=== PATIENT | female | born 1945 | race Caucasian/White ===

== ENCOUNTER 2021-10-19 20:38 | Emergency (ER) | payer MEDICARE, MEDICAID, SELFPAY ==
--- NOTE | 2021-10-19 21:01 | ECG_ITS ---
Test Reason : abdominal pain Blood Pressure : / mmHG Vent. Rate : 073 BPM Atrial Rate : 073 BPM P-R Int : 152 ms QRS Dur : 066 ms QT Int : 390 ms P-R-T Axes : 016 -26 033 degrees QTc Int : 429 ms Normal sinus rhythm Low voltage QRS Inferior infarct , age undetermined Abnormal ECG When compared with ECG of 10-APR-2016 02:41, Criteria for Septal infarct are no longer Present Inferior infarct is now Present Referred By: Kellie Coronado Electronically Signed By:ARISE ROSE
[2021-10-19 21:32] VITALS: BP 122/60; PULSE 95; O2SAT 95; BMI 24.0
--- NOTE | 2021-10-19 21:37 | ED.GENADULT ---
HPI - General Adult General Chief complaint: Extremity Problem Stated complaint: Right side cramping Time Seen by Provider: 10/19/21 21:01 Source: patient and EMS Mode of arrival: EMS Limitations: no limitations History of Present Illness HPI narrative: 76-year-old female came in from SNF for evaluation of right-sided weakness that started today. Patient overall is limited historian stated that she has history of stroke left her with right-sided deficit for many years, started 4-5 hours ago with severe pain on the right side patient unable to describe the pain more, patient screams if you touch her anywhere on right side of her body however no obvious tenderness or pain when patient is distracted. 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 Patient has history of anxiety. Related Data Home Medications Medication Instructions Recorded Confirmed acetaminophen 650 mg 650 mg PO Q8H 10/19/21 10/19/21 tablet,extended release alendronate 70 mg tablet 1 tab PO QWEEK 10/19/21 10/19/21 aspirin 81 mg tablet,delayed 81 mg PO DAILY 10/19/21 10/19/21 release baclofen 10 mg tablet 1 tab PO TID 10/19/21 10/19/21 buspirone 10 mg tablet 1 tab PO TID 10/19/21 10/19/21 coenzyme Q10 100 mg tablet 100 mg PO DAILY 10/19/21 10/19/21 gabapentin 300 mg capsule 1 cap PO TID 10/19/21 10/19/21 gabapentin 400 mg capsule 400 mg PO BID 10/19/21 10/19/21 loratadine 10 mg tablet 10 mg PO DAILY 10/19/21 10/19/21 magnesium oxide 400 mg PO DAILY 10/19/21 10/19/21 melatonin 5 mg tablet 5 mg PO BEDTIME PRN Insomnia 10/19/21 10/19/21 metoprolol tartrate 25 mg tablet 1 tab PO BID 10/19/21 10/19/21 nitrofurantoin 1 cap PO DAILY 10/19/21 10/19/21 monohydrate/macrocrystals 100 mg capsule paroxetine HCl 20 mg tablet 1 tab PO DAILY 10/19/21 10/19/21 pravastatin 10 mg tablet 1 tab PO BEDTIME 10/19/21 10/19/21 pravastatin 20 mg tablet 1 tab PO DAILY 10/19/21 10/19/21 riboflavin (vitamin B2) 100 mg 100 mg PO BID 10/19/21 10/19/21 tablet rivaroxaban 20 mg tablet (Xarelto) 1 tab PO DAILY 10/19/21 10/19/21 Allergies Allergy/AdvReac Type Severity Reaction Status Date / Time alprazolam [Xanax] Allergy Unknown Verified 03/13/19 00:00 penicillin V Allergy Unknown Verified 03/13/19 00:00 Penicillins [PENICILLINS] Allergy Unknown HIVES AND Unverified 11/12/19 14:56 SOB aspirin AdvReac Unknown N/V, Unverified 11/12/19 14:56 BURNING diflunisal [DIFLUNISAL] AdvReac Unknown WEAKNESS Unverified 11/12/19 14:56 erythromycin base AdvReac Unknown RAPID Unverified 11/12/19 14:56 [ERYTHROMYCIN BASE] HEART RATE iodine [IODINE] AdvReac Unknown VOMITING Unverified 11/12/19 14:56 Sulfa (Sulfonamide AdvReac Unknown NAUSEA & Unverified 11/12/19 14:56 Antibiotics) VOMITING [SULFA (SULFONAMIDE ANTIBIOTICS)] Contrast Allergy PreMed Pack Allergy Unknown Uncoded 03/13/19 00:00 Darvocet A500 Allergy Unknown Uncoded 03/13/19 00:00 Seafood Allergy Unknown Uncoded 03/13/19 00:00 Sulfa Allergy Unknown Uncoded 03/13/19 00:00 From DARVON AdvReac Unknown HALLUCINATI Uncoded 11/12/19 14:56 ONS SEAFOOD AdvReac Unknown N/V Uncoded 11/12/19 14:56 Review of Systems Review of Systems: All other systems are reviewed and are negative Constitutional: Reports as per HPI and Reports no additional constitutional complaints Eyes: Reports as per HPI and Reports no additional eye complaints Reports system reviewed and no additional complaints, except as documented Cardiovascular: Reports as per HPI and Reports no additional cardiovascular complaints Respiratory: Reports as per HPI and Reports no additional respiratory complaints Gastrointestinal: Reports as per HPI and Reports no additional gastrointestinal complaints Genitourinary: Reports no additional female genitourinary complaints Musculoskeletal: Reports no additional musculoskeletal complaints Skin/Breast: Reports system reviewed and no additional complaints, except as docu Psychiatric: Reports no additional psychiatric complaints Endocrine: Reports no additional endocrine complaints Hematologic/Lymphatic: Reports no additional hematologic/lymphatic complaints Allergic/Immunologic: Reports no additional allergic/immunologic complaints Reports system reviewed and no additional complaints, except as documented and Reports Abnormal speech present [facility] Social History Social History Advance Directives: No Advance Directives Information Provided: No Physical Exam ED Vital Signs: Vital Signs - 24 hr 10/19/21 22:46 Temperature 98.7 F Pulse Rate 71 Blood Pressure 99/49 L Pulse Oximetry 96 Oxygen Delivery Method Room Air BMI result Body Mass Index 24.0 vital signs have been reviewed as appeared to be correct. Blood pressure normal. Heart rate normal. Respiration rate normal. Temperature normal. Oxygen saturation normal. Appearance: Alert. . No acute distress. Head: Normal external exam. Normocephalic. Atraumatic. No Rao signs noted. No raccoon eyes noted Eyes: PERRLA. EOMI. Conjunctiva and sclera normal. Eyelids normal. ENT: TM's Normal. Pharynx normal. Uvula midline. Moist mucous membranes. No trismus noted. No drooling noted. No muffled voice noted. Neck: Normal inspection. Neck supple. FROM. No adenopathy. Thyroid Normal. No meningeal signs. No neck mass noted. CVS: Normal heart rate and rhythm. Heart sound normal. No murmurs noted. Pulses normal throughout. Respiratory: No respiratory distress. Painless inspiration. Breath sounds normal. No wheezes/rales/rhonchi noted. Chest nontender. No accessory muscle usage noted or decreased air movement noted. Abdomen: Soft and nontender. Bowel sounds normal in all 4 quadrants. No distention noted. No organomegaly noted. No visible injury noted. Back: No CVA tenderness. Full range of motion noted. Skin: Skin warm and dry. Normal skin color. Normal skin turgor. No rashes/lesions/lacerations noted. Extremities: No lower extremity edema. Extremities exhibit normal range of motion. Extremities nontender. Neuro: Oriented X 3. Cranial nerve exam: II-XII are grossly intact Old right hemiparesis. No sensory deficit. Reflexes normal. Course Course Course Narrative: 76-year-old female came in for evaluation of right-sided body ache, patient is known to be bedridden and right hemiparesis secondary to an old CVA. , initially presented with right-sided body ache, patient initially was screaming of pain if touching any part of her body on the right side however with distracting the patient there was no right-sided tenderness appreciated. Patient has a normal vital sign while she is in the ED, unremarkable labs, with distraction touching right-sided with no pain. Overall patient now feels better with no right-sided pain, will discharge the patient back to the alf. Medical Decision Making Lab Data Lab results reviewed: Yes I reviewed the patient's lab results. Result diagrams: 10/19/21 21:34 10/19/21 21:30 Labs: Lab Results 10/19/21 10/19/21 10/19/21 Range/Units 21:30 21:30 21:31 WBC (4.8-10.8) X10*3/uL RBC (4.20-5.50) X10*6/uL Hgb (12.0-16.0) g/dl Hct (37.0-47.0) % MCV (80.0-98.0) fL MCH (27.0-33.0) pg MCHC (31.0-35.0) g/dl RDW (11.0-16.0) % Plt Count (160-400) X10*3/uL MPV (9.4-12.3) fL Immature Gran % (Auto) (0.0-0.4) % Neut % (Auto) (45-73) % Lymph % (Auto) (20-40) % [place] % (Auto) (2-11) % Eos % (Auto) (0-4) % Baso % (Auto) (0-2) % Lymph # (Auto) (1.2-4.9) X10*3/uL [place] # (Auto) (0.1-1.2) X10*3/uL Eos # (Auto) (0.0-0.4) X10*3/uL Baso # (Auto) (0.0-0.2) X10*3/uL Abs Immat Gran (auto) (0.00-0.03) X10*3/uL Absolute Neuts (auto) (2.0-8.3) x10*3/uL Absolute Nucleated RBC (0.0-0.012) X10*3/uL Nucleated RBC % (auto) (0.0-0.2) /100WBC Sodium Cancelled 143 Potassium Cancelled 4.5 Chloride Cancelled 105 Carbon Dioxide Cancelled 28 Anion Gap Cancelled 15 BUN Cancelled 15 Creatinine Cancelled 0.93 Estim Creat Clear Calc Cancelled 42.7 Estimated GFR Cancelled 59 Random Glucose Cancelled 95 Calcium Cancelled 9.1 Total Bilirubin Cancelled 0.4 Direct Bilirubin Cancelled < 0.2 AST Cancelled 49 H ALT Cancelled 36 H Alkaline Phosphatase Cancelled 106 Total Creatine Kinase 65 (26-140) U/L Troponin I High Sens (<3.5-17.0) ng/L Total Protein Cancelled 7.9 Albumin Cancelled 4.0 Lipase Cancelled 91 H COVID-19 (MARY) Negative (Negative) COVID-19 Clin Com See Note 10/19/21 10/19/21 Range/Units 21:34 21:34 WBC 8.2 (4.8-10.8) X10*3/uL RBC 4.73 (4.20-5.50) X10*6/uL Hgb 14.2 (12.0-16.0) g/dl Hct 43.2 (37.0-47.0) % MCV 91.3 (80.0-98.0) fL MCH 30.0 (27.0-33.0) pg MCHC 32.9 (31.0-35.0) g/dl RDW 13.4 (11.0-16.0) % Plt Count 253 (160-400) X10*3/uL MPV 8.9 L (9.4-12.3) fL Immature Gran % (Auto) 0.4 (0.0-0.4) % Neut % (Auto) 63.4 (45-73) % Lymph % (Auto) 24.1 (20-40) % [place] % (Auto) 9.4 (2-11) % Eos % (Auto) 1.7 (0-4) % Baso % (Auto) 1.0 (0-2) % Lymph # (Auto) 2.0 (1.2-4.9) X10*3/uL [place] # (Auto) 0.8 (0.1-1.2) X10*3/uL Eos # (Auto) 0.1 (0.0-0.4) X10*3/uL Baso # (Auto) 0.1 (0.0-0.2) X10*3/uL Abs Immat Gran (auto) 0.03 (0.00-0.03) X10*3/uL Absolute Neuts (auto) 5.2 (2.0-8.3) x10*3/uL Absolute Nucleated RBC 0.000 (0.0-0.012) X10*3/uL Nucleated RBC % (auto) 0.0 (0.0-0.2) /100WBC Sodium Potassium Chloride Carbon Dioxide Anion Gap BUN Creatinine Estim Creat Clear Calc Estimated GFR Random Glucose Calcium Total Bilirubin Direct Bilirubin AST ALT Alkaline Phosphatase Total Creatine Kinase (26-140) U/L Troponin I High Sens 3.7 (<3.5-17.0) ng/L Total Protein Albumin Lipase COVID-19 (MARY) (Negative) COVID-19 Clin Com Discharge Plan Discharge Clinical Impression: Body aches, Abdominal cramps Patient Disposition: Home, Self-Care Instructions: Muscle Cramp (ED) Prescriptions: No [facility] alendronate 70 mg tablet 1 tab PO QWEEK pravastatin 10 mg tablet 1 tab PO BEDTIME baclofen 10 mg tablet 1 tab PO TID paroxetine HCl 20 mg tablet 1 tab PO DAILY buspirone 10 mg tablet 1 tab PO TID gabapentin 300 mg capsule 1 cap PO TID pravastatin 20 mg tablet 1 tab PO DAILY metoprolol tartrate 25 mg tablet 1 tab PO BID nitrofurantoin monohyd/m-cryst 100 mg capsule 1 cap PO DAILY Xarelto 20 mg tablet 1 tab PO DAILY riboflavin (vitamin B2) 100 mg Tablet 100 mg PO BID gabapentin 400 mg capsule 400 mg PO BID aspirin [Aspir-81] 81 mg Tablet,Delayed Release (Dr/Ec) 81 mg PO DAILY acetaminophen 650 mg Tablet Extended Release 650 mg PO Q8H loratadine 10 mg Tablet 10 mg PO DAILY melatonin 5 mg Tablet 5 mg PO BEDTIME PRN (Reason: Insomnia) coenzyme Q10 100 mg Tablet 100 mg PO DAILY magnesium oxide 400 mg magnesium Tablet 400 mg PO DAILY Referrals: Jan Hoover MD [Primary Care Provider] -
[2021-10-19 21:39] LABS: MANUAL DIFF FLAG NO
[2021-10-19 21:49] LABS: Basophils Absolute Auto 0.1 X10*3/uL (0.0-0.2); Eosinophils Absolute Auto 0.1 X10*3/uL (0.0-0.4); Eosinophils Percent Auto 1.7 % (0-4); Hematocrit 43.2 % (37.0-47.0); Hemoglobin 14.2 g/dl (12.0-16.0); Imm Gran Abs Auto 0.03 X10*3/uL (0.00-0.03); Imm Gran Pct Auto 0.4 % (0.0-0.4); Lymphocytes Percent Auto 24.1 % (20-40); Mean Corpuscular HGB Conc 32.9 g/dl (31.0-35.0); Mean Corpuscular Volume 91.3 fL (80.0-98.0); Mean Platelet Volume 8.9 fL (9.4-12.3); Monocytes Absolute Auto 0.8 X10*3/uL (0.1-1.2); Monocytes Percent Auto 9.4 % (2-11); Neutrophils Absolute Auto 5.2 x10*3/uL (2.0-8.3); Neutrophils Percent Auto 63.4 % (45-73); Platelet Count 253 X10*3/uL (160-400); Red Blood Count 4.73 X10*6/uL (4.20-5.50); Red Cell Distribution Width 13.4 % (11.0-16.0); White Blood Count 8.2 X10*3/uL (4.8-10.8)
[2021-10-19 21:51] LABS: COVID-19 Test Negative (Negative); IDNOW Serial# 08D9AD1C
--- NOTE | 2021-10-19 22:00 | PHA.MEDREC ---
Pharmacy Consult ? Medication Reconciliation Pharmacy has completed the medication reconciliation. Use list provided by [facility].
[2021-10-19 22:07] LABS: Alanine Aminotransferase 36 U/L (0-31); Alkaline Phosphatase 106 U/L (39-117); Anion Gap 15 (12-20); Aspartate Amino Transferase 49 U/L (5-31); Bilirubin Direct < 0.2 mg/dL (0.0-0.5); Bilirubin Total 0.4 mg/dL (0.0-1.0); Blood Urea Nitrogen 15 mg/dL (9-16); Calcium 9.1 mg/dL (8.4-10.2); Carbon Dioxide 28 mmol/L (22-29); Chloride 105 mmol/L (96-108); Creatinine Clr Calc Pharmacy 42.7; Estimated Glomerular Filt Rate 59; Glucose Random 95 mg/dL (60-115); Lipase 91 U/L (8-78); Potassium 4.5 mmol/L (3.3-5.1); Sodium 143 mmol/L (135-145); Total Protein 7.9 g/dL (6.5-8.0)
[2021-10-19 22:15] LABS: Troponin-I High Sensitivity 3.7 ng/L (<3.5-17.0)
[2021-10-19 22:46] VITALS: BP 99/49; PULSE 71; TEMP 37.1; O2SAT 96
[2021-10-19] MEDS: Acetaminophen 325 MG TABLET 650 MG PO (23:50)
--- NOTE | 2021-10-20 00:12 | PC.NURSE ---
This US/Pct called [facility] at 0012 for a BLS transfer back to [facility],EMS Booked 0630AM. RN and color coater aware.
--- NOTE | 2021-10-20 00:33 | PC.NURSE ---
report called to SNF. spoke with pt nurse. ambulance transport back to facility @[phone]
== END 2021-10-20 07:10 | disposition home or self-care (01) ==
PROVIDERS: Emergency Provider Emergency Medicine; PCP Family Medicine
DX: M79.10 Myalgia, unspecified site (principal); R10.9 Unspecified abdominal pain; Z20.822 Contact with and (suspected) exposure to COVID-19; I69.351 Hemiplegia and hemiparesis following cerebral infarction affecting right dominant side
CPT/HCPCS: 36415; 80048; 80076; 82550; 83690; 84484; 85025; 87635; 93005; 99283; 99284

== ENCOUNTER 2023-01-03 16:56 | Emergency (ER) | payer MEDICARE, MEDICAID, SELFPAY ==
--- NOTE | ~2023-01-03 | XR_ITS ---
EXAMINATION: XR HIP, RIGHT CLINICAL INFORMATION: Fall COMPARISON: None available. TECHNIQUE: Single view of the pelvis 2 views of the right hip FINDINGS: 3 partially threaded and cannulated screws involving the right femoral head and neck, grossly intact. No acute visible fracture or dislocation. 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 Degenerative changes of the lumbosacral spine. Joint spaces and alignment are otherwise maintained. Soft tissues are unremarkable. Bowel gas is unremarkable. XR/XR hip RT w PEL1V IMPRESSION: 1. No acute visible fracture or dislocation. 2. 3 partially threaded and cannulated screws involving the right femoral head and neck, grossly intact. 3. 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
--- NOTE | ~2023-01-03 | CT_ITS ---
EXAMINATION: CT HEAD WITHOUT CONTRAST CLINICAL INFORMATION: Pain COMPARISON: CT head 04/10/2016 TECHNIQUE: Contiguous axial imaging was performed from the skull base to vertex without intravenous administration of contrast. This CT examination was performed using dose optimization techniques as appropriate, variously including the following: *Automated exposure control *Adjustment of mA and/or kV according to patient size (this includes techniques or standardized protocols for targeted exams where dose is matched to indication/reason for exam; i.e. extremities or head) *Use of iterative reconstruction technique DLP: 973 mGy-cm FINDINGS: Redemonstration of encephalomalacia of remote left MCA chronic infarct. There is no evidence of acute intracranial hemorrhage or territorial infarction. Chronic white matter small vessel ischemic changes. No abnormal mass effect or midline shift is seen. Desai to white matter differentiation is well preserved. No extra-axial fluid collections are identified. The ventricles are normal in size. There is no abnormal attenuation within the brain parenchyma. The osseous structures and soft tissues are normal. The mastoid air cells and visualized portions of the paranasal sinuses are well aerated. CT/CT cervical spine wo IV con IMPRESSION: 1. No acute intracranial pathology. 2. Redemonstration of encephalomalacia of remote left MCA chronic infarct. 3. Chronic white matter small vessel ischemic changes. EXAMINATION: Noncontrast CT scan of the cervical spine. INDICATION: Pain COMPARISON: None. TECHNIQUE: Helical, multidetector axial images were obtained from the occiput to the upper thorax. Coronal and sagittal reformats of the cervical spine were provided for interpretation. DLP: 973 mGy-cm FINDINGS: No acute fractures or dislocations of the cervical spine are seen. Multilevel degenerative changes. Anatomic alignment and positioning of the vertebral bodies and posterior elements is noted. The atlantoaxial joint and craniovertebral articulations are normal without evidence of subluxation. There is no prevertebral soft tissue swelling. Tree-in-bud nodularity in the left upper lung field may reflect infectious/inflammatory etiology. Biapical pleural parenchymal scarring. IMPRESSION: 1. No acute visible fracture or dislocation. 2. Multilevel degenerative changes. 3. Tree-in-bud nodularity in the left upper lung field may reflect infectious/inflammatory etiology. Correlate with symptomatology.
--- NOTE | ~2023-01-03 | XR_ITS ---
EXAMINATION: XR CHEST CLINICAL INFORMATION: Shortness of breath COMPARISON: Chest radiograph from 09/03/2015 TECHNIQUE: Frontal view of the chest was obtained. FINDINGS: Bilateral low lung volumes. Streaky opacities of the bilateral lung bases, left greater than right may reflect atelectasis versus evolving infectious/inflammatory etiology. No pneumothorax. Trachea is midline. Cardiac mediastinal silhouette is not enlarged. No large pleural effusion. Osseous structures are intact. Soft tissues are unremarkable. XR/XR chest 1V IMPRESSION: 1. Bilateral low lung volumes. 2. Streaky opacities of the bilateral lung bases, left greater than right may reflect atelectasis versus evolving infectious/inflammatory etiology.
--- NOTE | ~2023-01-03 | XR_ITS ---
EXAMINATION: XR SHOULDER, RIGHT CLINICAL INFORMATION: Fall COMPARISON: None available. TECHNIQUE: Two views of the right shoulder. FINDINGS: No acute visible fracture or dislocation. Degenerative arthropathy of the glenohumeral and acromioclavicular joint with periarticular osteophyte along the superior margin of the acromioclavicular joint. Joint spaces and alignment are otherwise maintained. Soft tissues are unremarkable. Visualized portions of the right chest are unremarkable. XR/XR shoulder RT min 2V IMPRESSION: 1. No acute visible fracture or dislocation. 2. Degenerative arthropathy of the glenohumeral and acromioclavicular joint.
[2023-01-03 17:20] VITALS: BP 120/54; PULSE 60; O2SAT 96; BMI 23.2
[2023-01-03 17:43] VITALS: BP 176/61; RESP 18; O2SAT 96
--- NOTE | 2023-01-03 17:44 | PC.NURSE ---
Patient arrived via ems from [facility]. Per ems staff reported that patient was walking to the bathroom and fell. Per ems patient was on the ground with a pillow under her head upon their arrival. Patient placed in collar by ems. Patient reports right sided neck, shoulder, hip, and leg pain. C collar remains in place . Patient denies headstrike or LOC, states was not dizzy, that she tripped and fell
[2023-01-03 18:00] VITALS: BP 161/40; RESP 18; O2SAT 98
--- NOTE | 2023-01-03 18:00 | ED.GENADULT ---
HPI - General Adult General Chief complaint: Fall Stated complaint: FALL,+THINNERS,NO LOC Time Seen by Provider: 01/03/23 17:44 Source: patient Mode of arrival: EMS Limitations: no limitations History of Present Illness HPI narrative: 77 year old female presents for a fall earlier today. Patient is a poor historian. She states she fall on her right side and her entire right side has pain and she is unable to move that side, from her toes to her neck. She believes she hit her head but denies LOC. She states she is on blood thinners, unsure which one. Per her chart, she is taking alendronate so suspicion for osteoporosis. Patient unable to confirm. She reports a headache. She denies abdominal pain. She was unable to ambulate following the fall. Related Data Home Medications Medication Instructions Recorded Confirmed acetaminophen 650 mg 650 mg PO Q8H 10/19/21 10/19/21 tablet,extended release alendronate 70 mg tablet 1 tab PO QWEEK 10/19/21 10/19/21 aspirin 81 mg tablet,delayed 81 mg PO DAILY 10/19/21 10/19/21 release baclofen 10 mg tablet 1 tab PO TID 10/19/21 10/19/21 buspirone 10 mg tablet 1 tab PO TID 10/19/21 10/19/21 coenzyme Q10 100 mg tablet 100 mg PO DAILY 10/19/21 10/19/21 gabapentin 300 mg capsule 1 cap PO TID 10/19/21 10/19/21 gabapentin 400 mg capsule 400 mg PO BID 10/19/21 10/19/21 loratadine 10 mg tablet 10 mg PO DAILY 10/19/21 10/19/21 magnesium oxide 400 mg PO DAILY 10/19/21 10/19/21 melatonin 5 mg tablet 5 mg PO BEDTIME PRN Insomnia 10/19/21 10/19/21 metoprolol tartrate 25 mg tablet 1 tab PO BID 10/19/21 10/19/21 nitrofurantoin 1 cap PO DAILY 10/19/21 10/19/21 monohydrate/macrocrystals 100 mg capsule paroxetine HCl 20 mg tablet 1 tab PO DAILY 10/19/21 10/19/21 pravastatin 10 mg tablet 1 tab PO BEDTIME 10/19/21 10/19/21 pravastatin 20 mg tablet 1 tab PO DAILY 10/19/21 10/19/21 riboflavin (vitamin B2) 100 mg 100 mg PO BID 10/19/21 10/19/21 tablet rivaroxaban 20 mg tablet (Xarelto) 1 tab PO DAILY 10/19/21 10/19/21 Allergies Allergy/AdvReac Type Severity Reaction Status Date / Time alprazolam [Xanax] Allergy Unknown Verified 03/13/19 00:00 penicillin V Allergy Unknown Verified 03/13/19 00:00 Penicillins [PENICILLINS] Allergy Unknown HIVES AND Unverified 11/12/19 14:56 SOB aspirin AdvReac Unknown N/V, Unverified 11/12/19 14:56 BURNING diflunisal [DIFLUNISAL] AdvReac Unknown WEAKNESS Unverified 11/12/19 14:56 erythromycin base AdvReac Unknown RAPID Unverified 11/12/19 14:56 [ERYTHROMYCIN BASE] HEART RATE iodine [IODINE] AdvReac Unknown VOMITING Unverified 11/12/19 14:56 Sulfa (Sulfonamide AdvReac Unknown NAUSEA & Unverified 11/12/19 14:56 Antibiotics) VOMITING [SULFA (SULFONAMIDE ANTIBIOTICS)] Contrast Allergy PreMed Pack Allergy Unknown Uncoded 03/13/19 00:00 Darvocet A500 Allergy Unknown Uncoded 03/13/19 00:00 Seafood Allergy Unknown Uncoded 03/13/19 00:00 Sulfa Allergy Unknown Uncoded 03/13/19 00:00 From DARVON AdvReac Unknown HALLUCINATI Uncoded 11/12/19 14:56 ONS SEAFOOD AdvReac Unknown N/V Uncoded 11/12/19 14:56 Review of Systems Constitutional: Constitutional: Denies fever(s) and Reports headache(s) Eyes: Eyes: Denies change in vision ENT: Reports headache(s) and Reports neck pain Cardiovascular: Cardiovascular: Denies chest pain, Denies syncope, Denies Loss of Consciousness and Denies dyspnea Respiratory: Respiratory: Denies dyspnea Gastrointestinal: Gastrointestinal: Denies abdominal pain Genitourinary: Genitourinary: Denies difficulty voiding and Denies urinary incontinence Musculoskeletal: Musculoskeletal: Reports arthralgias, Reports limited range of motion, Reports neck pain, Denies numbness and Denies tingling Comments: pain of entire right side from toes to neck, including ankle, knee, hip, shoulder, elbow Integumentary/Breasts: Skin/Breast: Denies unusual bruising Neurologic: Denies syncope, Reports headache(s), Denies focal weakness, Denies numbness and Denies tingling PMFSH Social History Social History Alcohol intake: former Smoked in Last 30 Days: No Use of substances other than those prescribed or required for medical reasons: No Advance Directives: No Physical Exam ED Vital Signs: Vital Signs - 24 hr 01/03/23 17:43 01/03/23 18:00 01/03/23 19:24 Temperature Pulse Rate 57 Respiratory Rate 18 18 12 Blood Pressure 176/61 H 161/40 H 166/62 H Pulse Oximetry 96 98 95 Oxygen Delivery Method Room Air Room Air Room Air 01/03/23 22:00 Temperature 97 F Pulse Rate 54 Respiratory Rate 13 Blood Pressure 140/48 H Pulse Oximetry 96 Oxygen Delivery Method Room Air BMI result Body Mass Index 23.2 Const General: no acute distress Orientation/consciousness: patient oriented x3 Limitations: no limitations HENMT Head: No abrasion, No palpable skull fracture, Yes scalp tenderness and Yes other (cervical collar placed) Eyes Conjunctivae: conjunctivae normal Sclerae: sclerae normal Corneas: corneas normal Pupils: Equal, round and reactive pupils present Neck Neck: Yes other (cervical collar placed) Resp Effort & Inspection: normal respiratory effort Auscultation: clear to auscultation bilaterally Cardio Rate: regular rate Rhythm: regular rhythm GI Inspection: Yes normal to inspection Palpation (GI): Soft to palpation, not firm, Tenderness to palpation present (GI) in the RLQ and in the RUQ, no guarding and not rigid Back/Spine/Pelvis Cervical Spine: collar present Neuro General: patient oriented x3, CN's II-XI intact bilaterally and Unable to assess gait Cranial nerves: Yes Equal, round and reactive pupils present Gait exam (Neuro): Unable to assess gait Extrem Other: Patient has tenderness to the entire right side of the body with even light palpation. However, if I tell her that I have evaluated the left side of her body and palpating the entire ice the body as well as the left side she has no pain or guarding whatsoever. There are no obvious visual or palpable deformities to the entire right side. Course Reevaluation(s) Reevaluation #1: CT scan the brain and cervical spine did not show any traumatic injuries. I removed the patient's C-collar. She wore for x-ray and x-rays of the right shoulder, right hip and chest x-ray did not show any evidence of traumatic injury. Patient's CT scan cervical spine showed some concern for possible inflammatory process in the lungs. Chest x-ray did not show any obvious infiltrates. The patient has not been coughing or short of breath. This is felt to be more likely atelectasis or scarring rather than acute inflammatory infectious process. The patient is stable for discharge at this time Time: 23:14 Medical Decision Making Medical Decision Making MDM Narrative: 77-year-old female with past medical history significant for CVA with reported right-sided deficits. Exam is limited on the right due to patient's level of pain although she has no tenderness or guarding when distracted. There are no obvious signs of trauma. The patient is fall was unwitnessed at her facility. Will get a CT scan of the brain, cervical spine, x-rays of the right shoulder and right hip with pelvis. Also, given the fall was unwitnessed, will get basic labs and EKG. Per EMS report, it does not sound as if there was an extended down time, however we will add on a CPK Differential Diagnosis Differential Diagnoses: The differential diagnosis associated with the presentation includes hip fracture contusion concussion muscle strain intracranial hemorrhage Lab Data 01/03/23 19:07 01/03/23 19:07 Labs: Lab Results 01/03/23 01/03/23 Range/Units 18:17 19:07 WBC 5.1 (4.8-10.8) X10*3/uL RBC 4.35 (4.20-5.50) X10*6/uL Hgb 13.4 (12.0-16.0) g/dl Hct 40.9 (37.0-47.0) % MCV 94.0 (80.0-98.0) fL MCH 30.8 (27.0-33.0) pg MCHC 32.8 (31.0-35.0) g/dl RDW 13.5 (11.0-16.0) % Plt Count 261 (160-400) X10*3/uL MPV 9.0 L (9.4-12.3) fL Immature Gran % (Auto) 0.4 (0.0-0.4) % Neut % (Auto) 56.4 (45-73) % Lymph % (Auto) 29.4 (20-40) % [place] % (Auto) 10.5 (2-11) % Eos % (Auto) 2.1 (0-4) % Baso % (Auto) 1.2 (0-2) % Lymph # (Auto) 1.5 (1.2-4.9) X10*3/uL [place] # (Auto) 0.5 (0.1-1.2) X10*3/uL Eos # (Auto) 0.1 (0.0-0.4) X10*3/uL Baso # (Auto) 0.1 (0.0-0.2) X10*3/uL Abs Immat Gran (auto) 0.02 (0.00-0.03) X10*3/uL Absolute Neuts (auto) 2.9 (2.0-8.3) x10*3/uL Absolute Nucleated RBC 0.000 (0.0-0.012) X10*3/uL Nucleated RBC % (auto) 0.0 (0.0-0.2) /100WBC Sodium 141 (135-145) mmol/L Potassium 4.4 (3.3-5.1) mmol/L Chloride 103 (96-108) mmol/L Carbon Dioxide 31 H (22-29) mmol/L Anion Gap 11 L (12-20) BUN 9 (9-16) mg/dL Creatinine 0.82 (0.5-1.4) mg/dL Estim Creat Clear Calc 50.3 Estimated GFR > 60 Random Glucose 94 (60-115) mg/dL Calcium 9.2 (8.4-10.2) mg/dL Total Bilirubin 0.4 (0.0-1.0) mg/dL AST 22 (5-31) U/L ALT 11 (0-31) U/L Alkaline Phosphatase 97 (39-117) U/L Total Creatine Kinase 47 (26-140) U/L Troponin I High Sens < 2.7 (<3.5-17.0) ng/L Total Protein 7.0 (6.5-8.0) g/dL Albumin 3.7 (3.5-5.0) g/dL Lipase 91 H (8-78) U/L Urine Color Yellow Urine Appearance Clear Urine pH 7.0 (5.0-9.0) Ur Specific [place] 1.010 (1.005-1.025) Urine Protein Negative (Neg-Trace) mg/dL Urine Glucose (UA) Negative (Negative) mg/dL Urine Ketones Negative (Negative) mg/dL Urine Blood Negative (Negative) Urine Nitrite Negative (Negative) Ur Leukocyte Esterase Negative (Negative) Discharge Plan Discharge Clinical Impression: Fall Patient Disposition: Home, Self-Care Instructions: Fall Prevention (ED) Additional Instructions: All of your imaging did not show any evidence of traumatic injuries This includes her brain CT, cervical spine CT X-ray of your chest, x-ray the shoulder and x-ray of her right hip as well as pelvis Your blood work was all reassuring Follow-up with your primary doctor Prescriptions: No [facility] alendronate 70 mg tablet 1 tab PO QWEEK pravastatin 10 mg tablet 1 tab PO BEDTIME baclofen 10 mg tablet 1 tab PO TID paroxetine HCl 20 mg tablet 1 tab PO DAILY buspirone 10 mg tablet 1 tab PO TID gabapentin 300 mg capsule 1 cap PO TID pravastatin 20 mg tablet 1 tab PO DAILY metoprolol tartrate 25 mg tablet 1 tab PO BID nitrofurantoin monohyd/m-cryst 100 mg capsule 1 cap PO DAILY Xarelto 20 mg tablet 1 tab PO DAILY riboflavin (vitamin B2) 100 mg Tablet 100 mg PO BID gabapentin 400 mg capsule 400 mg PO BID aspirin [Aspir-81] 81 mg Tablet,Delayed Release (Dr/Ec) 81 mg PO DAILY acetaminophen 650 mg Tablet Extended Release 650 mg PO Q8H loratadine 10 mg Tablet 10 mg PO DAILY melatonin 5 mg Tablet 5 mg PO BEDTIME PRN (Reason: Insomnia) coenzyme Q10 100 mg Tablet 100 mg PO DAILY magnesium oxide 400 mg magnesium Tablet 400 mg PO DAILY
--- NOTE | 2023-01-03 18:27 | ECG_ITS ---
Test Reason : FALL Blood Pressure : / mmHG Vent. Rate : 058 BPM Atrial Rate : 058 BPM P-R Int : 150 ms QRS Dur : 070 ms QT Int : 424 ms P-R-T Axes : 044 -31 003 degrees QTc Int : 416 ms Sinus bradycardia Left anterior fascicular block Low voltage QRS Inferior infarct (cited on or before 10-APR-2016) Abnormal ECG When compared with ECG of 19-OCT-2021 21:50, No significant change was found Referred By: [place] Electronically Signed By:IVONNE PRATER MD
[2023-01-03 18:34] LABS: Appearance Urine Clear; Color Urine Yellow; Glucose Urine UA Negative (Negative); Leukocyte Esterase Urine Negative (Negative); Nitrite Urine Negative (Negative); Urine Blood Negative (Negative); Urine Ketones Negative (Negative); Urine Protein Negative (Neg-Trace)
[2023-01-03 19:13] LABS: MANUAL DIFF FLAG NO
[2023-01-03 19:24] VITALS: BP 166/62; PULSE 57; RESP 12; O2SAT 95
[2023-01-03 19:28] LABS: Basophils Absolute Auto 0.1 X10*3/uL (0.0-0.2); Basophils Percent Auto 1.2 % (0-2); Eosinophils Absolute Auto 0.1 X10*3/uL (0.0-0.4); Eosinophils Percent Auto 2.1 % (0-4); Hematocrit 40.9 % (37.0-47.0); Hemoglobin 13.4 g/dl (12.0-16.0); Imm Gran Abs Auto 0.02 X10*3/uL (0.00-0.03); Imm Gran Pct Auto 0.4 % (0.0-0.4); Lymphocytes Absolute Auto 1.5 X10*3/uL (1.2-4.9); Lymphocytes Percent Auto 29.4 % (20-40); Mean Corpuscular HGB Conc 32.8 g/dl (31.0-35.0); Mean Corpuscular Hemoglobin 30.8 pg (27.0-33.0); Monocytes Absolute Auto 0.5 X10*3/uL (0.1-1.2); Monocytes Percent Auto 10.5 % (2-11); Neutrophils Absolute Auto 2.9 x10*3/uL (2.0-8.3); Neutrophils Percent Auto 56.4 % (45-73); Platelet Count 261 X10*3/uL (160-400); Red Blood Count 4.35 X10*6/uL (4.20-5.50); Red Cell Distribution Width 13.5 % (11.0-16.0); White Blood Count 5.1 X10*3/uL (4.8-10.8)
[2023-01-03 19:29] LABS: Alanine Aminotransferase 11 U/L (0-31); Albumin Level 3.7 g/dL (3.5-5.0); Alkaline Phosphatase 97 U/L (39-117); Anion Gap 11 (12-20); Aspartate Amino Transferase 22 U/L (5-31); Bilirubin Total 0.4 mg/dL (0.0-1.0); Blood Urea Nitrogen 9 mg/dL (9-16); Calcium 9.2 mg/dL (8.4-10.2); Carbon Dioxide 31 mmol/L (22-29); Chloride 103 mmol/L (96-108); Creatinine Clr Calc Pharmacy 50.3; Estimated Glomerular Filt Rate > 60; Glucose Random 94 mg/dL (60-115); Lipase 91 U/L (8-78); Potassium 4.4 mmol/L (3.3-5.1); Sodium 141 mmol/L (135-145)
[2023-01-03 19:38] LABS: Troponin-I High Sensitivity < 2.7 ng/L (<3.5-17.0)
[2023-01-03 22:00] VITALS: BP 140/48; PULSE 54; RESP 13; TEMP 36.1; O2SAT 96
--- NOTE | 2023-01-03 23:34 | PC.NURSE ---
Assumed care of pt. Pt lying on stretcher, no acute distress at this time. Plan to trial ambulate with walker, contact daughter and discharge if pt demontrating steady gait.
[2023-01-03 23:37] VITALS: BP 142/36; PULSE 71; RESP 14; TEMP 36.2; O2SAT 98
--- NOTE | 2023-01-04 01:11 | MHC.EDTECH ---
call out to robel at [phone] to book transport for pt back to SNF, estimated eta given was 023
== END 2023-01-04 01:16 | disposition home or self-care (01) ==
PROVIDERS: Physician Assistant; Emergency Provider Emergency Medicine
DX: R51.9 Headache, unspecified (principal); Z91.81 History of falling; Z79.82 Long term (current) use of aspirin; Z79.899 Other long term (current) drug therapy; Z79.02 Long term (current) use of antithrombotics/antiplatelets
CPT/HCPCS: 36415; 70450; 71045; 72125; 73030; 73502; 80053; 81003; 82550; 83690; 84484; 85025; 93005; 99284; 99285

== ENCOUNTER 2023-07-01 13:14 | Inpatient (IN) | payer MEDICARE, MEDICAID, SELFPAY ==
[2023-07-01 13:21] VITALS: BP 142/72; PULSE 100; O2SAT 97
[2023-07-01 13:23] VITALS: BP 112/56; PULSE 87; RESP 18; TEMP 36.6; O2SAT 97; BMI 20.3
--- NOTE | 2023-07-01 13:23 | PC.NURSE ---
Addendum entered by Dayron Griffin 07/01/23 13:37: Hx TIA w R-sided upper/lower extremity deficits. Original Note: Expect from [facility]: SI w increased agitation. total care, head of bed elevated, supervised feeds, stand and pivot. per RN aspiration precautions, meds crushed w applesauce, mech ground diet w thinned liquids. Expect from [facility]: SI has been attempting to jump out of window, requesting inpt psych and r/o UTI.
--- NOTE | 2023-07-01 13:35 | ECG_ITS ---
Test Reason : AMS Blood Pressure : / mmHG Vent. Rate : 085 BPM Atrial Rate : 085 BPM P-R Int : 148 ms QRS Dur : 060 ms QT Int : 382 ms P-R-T Axes : 021 -35 030 degrees QTc Int : 454 ms Normal sinus rhythm Left axis deviation Low voltage QRS Inferior infarct (cited on or before 19-OCT-2021) Cannot rule out Anterior infarct (cited on or before 10-APR-2016) Abnormal ECG When compared with ECG of 03-JAN-2023 19:19, No significant change was found Referred By: Blanca Luu Electronically Signed By:Geovanny Moreno
--- NOTE | 2023-07-01 13:45 | ED_ITS ---
HPI - General Adult General Chief complaint: Psychiatric Symptoms Stated complaint: SI Time Seen by Provider: 07/01/23 13:45 Source: patient and EMS Mode of arrival: EMS Limitations: no limitations History of Present Illness HPI narrative: Patient is a 77 year old assigned female at with a history of CVA with right hemiparesis presenting to the emergency department today after making suicidal statements to SNF staff. SNF staff states that over the last few days the patient has made multiple suicidal comments. Patient refuses to address whether or not she made those comments to me. Patient denies any dizziness, lightheadedness, abdominal pain, nausea, vomiting, fever, chills, blurry vision, double vision, loss of vision, chest pain, difficulty breathing, shortness of breath, back pain, night sweats, pain with urination, increased urinary frequency, increased urinary urgency, blood in her urine or stool, syncope or a near syncopal episode, recent trauma or falls, bowel incontinence, bladder incontinence, bowel retention, bladder retention, or any other complaints at this time. Onset (ago): day(s) Relieving factors: none Exacerbating factors: none Associated symptoms: denies other symptoms Treatments prior to arrival: none Related Data Home Medications ?Medication ?Instructions ?Recorded ?Confirmed acetaminophen 650 mg 650 mg PO TID PAIN 10/19/21 07/01/23 tablet,extended release baclofen 10 mg tablet 1 tab PO TID 10/19/21 07/01/23 buspirone 10 mg tablet 1 tab PO TID 10/19/21 07/01/23 gabapentin 300 mg capsule 900 mg PO BEDTIME 10/19/21 07/01/23 gabapentin 400 mg capsule 400 mg PO BID@0500,1300 10/19/21 07/01/23 loratadine 10 mg tablet 10 mg PO DAILY PRN Allergy Symptoms 10/19/21 07/01/23 magnesium oxide 400 mg PO BEDTIME 10/19/21 07/01/23 melatonin 5 mg tablet 5 mg PO BEDTIME Insomnia 10/19/21 07/01/23 metoprolol tartrate 25 mg tablet 1 tab PO BID@1200,2100 10/19/21 07/01/23 pravastatin 10 mg tablet 1 tab PO BEDTIME 10/19/21 07/01/23 pravastatin 20 mg tablet 1 tab PO BEDTIME 10/19/21 07/01/23 rivaroxaban 20 mg tablet (Xarelto) 1 tab PO BEDTIME 10/19/21 07/01/23 acetaminophen 325 mg tablet 650 mg PO BEDTIME 07/01/23 07/01/23 aspirin 81 mg chewable tablet 81 mg PO DAILY@1200 07/01/23 07/01/23 mirtazapine 15 mg tablet 15 mg PO BEDTIME 07/01/23 07/01/23 paroxetine HCl 30 mg tablet 30 mg PO DAILY@1200 07/01/23 07/01/23 sennosides 8.6 mg tablet (senna) 8.6 mg PO DAILY 07/01/23 07/01/23 trazodone 50 mg tablet 25 mg PO BEDTIME 07/01/23 07/01/23 Allergies Allergy/AdvReac Type Severity Reaction Status Date / Time alprazolam [Xanax] Allergy Unknown Unknown Verified 07/01/23 13:31 penicillin V Allergy Unknown Unknown Verified 07/01/23 13:31 Penicillins [PENICILLINS] Allergy Unknown HIVES AND Verified 07/01/23 13:31 SOB aspirin AdvReac Unknown N/V, Verified 07/01/23 13:31 BURNING diflunisal [DIFLUNISAL] AdvReac Unknown WEAKNESS Verified 07/01/23 13:31 erythromycin base AdvReac Unknown RAPID Verified 07/01/23 13:31 [ERYTHROMYCIN BASE] HEART RATE iodine [IODINE] AdvReac Unknown VOMITING Verified 07/01/23 13:31 Sulfa (Sulfonamide AdvReac Unknown NAUSEA & Verified 07/01/23 13:31 Antibiotics) VOMITING [SULFA (SULFONAMIDE ANTIBIOTICS)] Contrast Allergy PreMed Pack Allergy Unknown Unknown Uncoded 07/01/23 13:31 Darvocet A500 Allergy Unknown Unknown Uncoded 07/01/23 13:31 Seafood Allergy Unknown Unknown Uncoded 07/01/23 13:31 Sulfa Allergy Unknown Unknown Uncoded 07/01/23 13:31 From DARVON AdvReac Unknown HALLUCINATI Uncoded 07/01/23 13:31 ONS SEAFOOD AdvReac Unknown N/V Uncoded 07/01/23 13:31 Review of Systems 2 Constitutional: Constitutional: Reports no additional constitutional complaints, Denies chills, Denies fever(s) and Denies night sweats Eyes: Eyes: Reports no additional eye complaints, Denies blurry vision, Denies change in vision, Denies diplopia, Denies eye discharge, Denies loss of vision and Denies eye pain ENT: Denies dizziness Cardiovascular: Cardiovascular: Reports no additional cardiovascular complaints, Denies chest pain, Denies lightheadedness, Denies Loss of Consciousness and Denies dyspnea Respiratory: Respiratory: Reports no additional respiratory complaints and Denies dyspnea Gastrointestinal: Gastrointestinal: Reports no additional gastrointestinal complaints, Denies abdominal pain, Denies melena, Denies hematochezia, Denies change in bowel habits and Denies change in stool character Genitourinary: Genitourinary: Denies hematuria, Denies urinary frequency, Denies dysuria, Denies urinary incontinence, Denies urinary hesitancy and Denies urinary urgency Musculoskeletal: Musculoskeletal: Reports no additional musculoskeletal complaints, Denies numbness and Denies tingling Comments: chronic right sided weakness Neurologic: Denies dizziness, Denies loss of vision, Denies numbness and Denies tingling Comments: chronic right sided weakness Psychiatric: Psychiatric: Reports suicidal ideation (per SNF staff but won't confirm to me) Endocrine: Endocrine: Reports no additional endocrine complaints Hematologic/Lymphatic: Hematologic/Lymphatic: Reports no additional hematologic/lymphatic complaints Allergic/Immunologic: Allergic/Immunologic: Reports no additional allergic/immunologic complaints PMFSH Past Medical History Attestation statement: The following information was validated with the patient. Source: old records reviewed, nursing notes reviewed and other (SNF staff provided additional history and confirmed the history provided by the patient.) Social History Social History Alcohol intake: former Smoked in Last 30 Days: No Use of substances other than those prescribed or required for medical reasons: No Advance Directives: No Physical Exam ED Vital Signs: Vital Signs - 24 hr 07/01/23 13:23 07/01/23 15:41 Temperature 98 F 97.7 F Pulse Rate 87 84 Respiratory Rate 18 14 Blood Pressure 112/56 L 155/58 H Pulse Oximetry 97 98 Oxygen Delivery Method Room Air Room Air BMI result Body Mass Index 20.3 Const General: cooperative, no acute distress, alert and awake Nutritional Appearance: well nourished Orientation/consciousness: patient oriented x3 Limitations: no limitations HENMT Head: Yes normal to inspection and Yes atraumatic Ears: hearing grossly normal bilaterally and external ears normal General nose exam: Normal external nose present, no nasal discharge noted and no epistaxis Face and sinus: Yes normal facial exam, No abrasion and No laceration Mouth: Normal oral and palatal mucosa present, no drooling and no muffled voice Eyes General: appearance normal, both eyes and all related structures Periorbital: periorbital findings normal Eyelids: Yes eyelids normal Conjunctivae: conjunctivae normal Pupils: Equal, round and reactive pupils present EOM: EOMs intact bilaterally Neck Neck: Yes normal visual inspection, Yes full ROM and Yes no lymphadenopathy Chest Chest palpation & inspection: normal inspection of the chest Resp Effort & Inspection: normal respiratory effort and able to speak in complete sentences GI Inspection: Yes normal to inspection Neuro Other: chronic right sided weakness General: patient oriented x3 Cranial nerves: Yes Equal, round and reactive pupils present Extrem Other: chronic right sided weakness General: Yes normal to inspection and Yes capillary refill normal Psych Appearance: grossly normal Mental Status: mental status grossly normal Affect: Sad affect present Attitude: Guarded attititude/behavior present Medical Decision Making Medical Decision Making [facility] Narrative: Patient is a 77 year old assigned female at with a history of CVA with right sided hemiparesis presenting to the emergency department today with suicidal ideation. Patient's physical exam was as noted in the physical exam portion of this note. Patient's blood work was unremarkable. Patient's urine showed no acute process. Patient's EKG was unremarkable. I explained my physical exam findings as well as all test results to the patient. I answered all questions asked by the patient. Patient's disposition will be determined after CARE team evaluation. Differential Diagnosis Differential Diagnoses: The differential diagnosis associated with the presentation includes Suicidal ideation Depression Admission/Observation Consideration of admission/observation: Escalation of care including admission/observation considered Patient's disposition will be determined after CARE team evaluation. Lab Data [facility] Lab Attestation statement: I reviewed the patient's lab results. My interpretation of these studies and their corresponding values is that they are grossly normal. 07/01/23 15:45 07/01/23 15:45 Labs: Lab Results 07/01/23 07/01/23 Range/Units 15:45 16:08 WBC 5.7 (4.8-10.8) X10*3/uL RBC 4.59 (4.20-5.50) X10*6/uL Hgb 13.9 (12.0-16.0) g/dl Hct 42.3 (37.0-47.0) % MCV 92.2 (80.0-98.0) fL MCH 30.3 (27.0-33.0) pg MCHC 32.9 (31.0-35.0) g/dl RDW 13.6 (11.0-16.0) % Plt Count 240 (160-400) X10*3/uL MPV 9.1 L (9.4-12.3) fL Immature Gran % (Auto) 0.2 (0.0-0.4) % Neut % (Auto) 61.0 (45-73) % Lymph % (Auto) 26.0 (20-40) % [place] % (Auto) 10.5 (2-11) % Eos % (Auto) 1.4 (0-4) % Baso % (Auto) 0.9 (0-2) % Lymph # (Auto) 1.5 (1.2-4.9) X10*3/uL [place] # (Auto) 0.6 (0.1-1.2) X10*3/uL Eos # (Auto) 0.1 (0.0-0.4) X10*3/uL Baso # (Auto) 0.1 (0.0-0.2) X10*3/uL Abs Immat Gran (auto) 0.01 (0.00-0.03) X10*3/uL Absolute Neuts (auto) 3.5 (2.0-8.3) x10*3/uL Absolute Nucleated RBC 0.000 (0.0-0.012) X10*3/uL Nucleated RBC % (auto) 0.0 (0.0-0.2) /100WBC Sodium 145 (135-145) mmol/L Potassium 4.5 (3.3-5.1) mmol/L Chloride 105 (96-108) mmol/L Carbon Dioxide 28 (22-29) mmol/L Anion Gap 17 (12-20) BUN 14 (9-16) mg/dL Creatinine 0.87 (0.5-1.4) mg/dL Estim Creat Clear Calc 45.1 Estimated GFR > 60 Random Glucose 102 (60-115) mg/dL Calcium 9.5 (8.4-10.2) mg/dL Total Bilirubin 0.3 (0.0-1.0) mg/dL AST 22 (5-31) U/L ALT 12 (0-31) U/L Alkaline Phosphatase 101 (39-117) U/L Total Protein 7.5 (6.5-8.0) g/dL Albumin 4.0 (3.5-5.0) g/dL Urine Color Yellow Urine Appearance Clear Urine pH 6.0 (5.0-9.0) Ur Specific [place] 1.015 (1.005-1.025) Urine Protein Negative (Neg-Trace) mg/dL Urine Glucose (UA) Negative (Negative) mg/dL Urine Ketones Negative (Negative) mg/dL Urine Blood Negative (Negative) Urine Nitrite Negative (Negative) Ur Leukocyte Esterase Trace H (Negative) Urine RBC 0-2 (0-2) /HPF Urine WBC 0-5 (0-5) /HPF Ur Squamous Epith Cells 11-20 (0-2) /HPF Urine Bacteria None Seen (None Seen) Hyaline Casts 0-2 (0-2) /LPF Salicylates < 5.0 L (15-30) mg/dL Urine Opiates Screen Not Detected (Not Detect) Ur Buprenorphine Scrn Not Detected (Not Detect) ng/mL Ur Oxycodone Screen Not Detected (Not Detect) ng/mL Urine Methadone Screen Not Detected (Not Detect) ng/mL Urine Fentanyl Screen Not Detected (Not Detect) Acetaminophen < 3 (<30) mcg/mL Ur Barbiturates Screen Not Detected (Not Detect) Ur Phencyclidine Scrn Not Detected (Not Detect) Ur Amphetamines Screen Not Detected (Not Detect) U Benzodiazepines Scrn Not Detected (Not Detect) Urine Cocaine Screen Not Detected (Not Detect) U Marijuana (THC) Screen Not Detected (Not Detect) Ethyl Alcohol < 10 mg/dL Independent Interpretation I performed an independent interpretation of an: EKG Interpretation: Vent. Rate: 085 BPM Atrial Rate: 085 BPM P-R Int: 148 ms QRS Dur: 060 ms QT Int: 382 ms P-R-T Axes: 021 -35 030 degrees QTc Int: 454 ms Normal sinus rhythm Left axis deviation Low voltage QRS Inferior infarct (cited on or before 19-OCT-2021) Cannot rule out Anterior infarct (cited on or before 10-APR-2016) Abnormal ECG When compared with ECG of 03-JAN-2023 19:19, No significant change was found DD/ 1434 Independent Historian Clinical information obtained from an independent historian. History obtained from or confirmed by: EMS (EMS provided additional history and confirmed the history provided by the patient.) and Other (SNF staff provided additional history and confirmed the history provided by the patient.) Critical Care Time Critical Care Time Critical Care Time: Yes Total Critical Care Time: 68 Attestation: I spent 68 minutes of Critical Care Time with this patient. This does not include time spent on separately reported billable procedures. Discharge Plan Discharge Clinical Impression: Suicidal ideation Patient Disposition: Still a Patient Prescriptions: No Action pravastatin 10 mg tablet 1 tab PO BEDTIME baclofen 10 mg tablet 1 tab PO TID buspirone 10 mg tablet 1 tab PO TID gabapentin 300 mg capsule 900 mg PO BEDTIME pravastatin 20 mg tablet 1 tab PO BEDTIME metoprolol tartrate 25 mg tablet 1 tab PO BID@1200,2100 Xarelto 20 mg tablet 1 tab PO BEDTIME gabapentin 400 mg capsule 400 mg PO BID@0500,1300 acetaminophen 650 mg Tablet Extended Release 650 mg PO TID loratadine 10 mg Tablet 10 mg PO DAILY PRN (Reason: Allergy Symptoms) melatonin 5 mg Tablet 5 mg PO BEDTIME magnesium oxide 400 mg magnesium Tablet 400 mg PO BEDTIME sennosides [senna] 8.6 mg Tablet 8.6 mg PO DAILY acetaminophen 325 mg Tablet 650 mg PO BEDTIME trazodone 50 mg tablet 25 mg PO BEDTIME paroxetine HCl 30 mg tablet 30 mg PO DAILY@1200 aspirin 81 mg Tablet,Chewable 81 mg PO DAILY@1200 mirtazapine 15 mg tablet 15 mg PO BEDTIME Interventions: [place]-Suicide Risk Severity Scale Last Done: 07/01/23 15:55 Print Language: Algerian
[2023-07-01 15:41] VITALS: BP 155/58; PULSE 84; RESP 14; TEMP 36.5; O2SAT 98
[2023-07-01 15:50] LABS: MANUAL DIFF FLAG NO
[2023-07-01 15:52] LABS: Basophils Absolute Auto 0.1 X10*3/uL (0.0-0.2); Basophils Percent Auto 0.9 % (0-2); Eosinophils Absolute Auto 0.1 X10*3/uL (0.0-0.4); Eosinophils Percent Auto 1.4 % (0-4); Hematocrit 42.3 % (37.0-47.0); Hemoglobin 13.9 g/dl (12.0-16.0); Imm Gran Abs Auto 0.01 X10*3/uL (0.00-0.03); Imm Gran Pct Auto 0.2 % (0.0-0.4); Lymphocytes Absolute Auto 1.5 X10*3/uL (1.2-4.9); Mean Corpuscular HGB Conc 32.9 g/dl (31.0-35.0); Mean Corpuscular Hemoglobin 30.3 pg (27.0-33.0); Mean Corpuscular Volume 92.2 fL (80.0-98.0); Mean Platelet Volume 9.1 fL (9.4-12.3); Monocytes Absolute Auto 0.6 X10*3/uL (0.1-1.2); Monocytes Percent Auto 10.5 % (2-11); Neutrophils Absolute Auto 3.5 x10*3/uL (2.0-8.3); Platelet Count 240 X10*3/uL (160-400); Red Blood Count 4.59 X10*6/uL (4.20-5.50); Red Cell Distribution Width 13.6 % (11.0-16.0); White Blood Count 5.7 X10*3/uL (4.8-10.8)
[2023-07-01 16:09] LABS: Alanine Aminotransferase 12 U/L (0-31); Alkaline Phosphatase 101 U/L (39-117); Anion Gap 17 (12-20); Aspartate Amino Transferase 22 U/L (5-31); Bilirubin Total 0.3 mg/dL (0.0-1.0); Blood Urea Nitrogen 14 mg/dL (9-16); Calcium 9.5 mg/dL (8.4-10.2); Carbon Dioxide 28 mmol/L (22-29); Chloride 105 mmol/L (96-108); Creatinine Clr Calc Pharmacy 45.1; Estimated Glomerular Filt Rate > 60; Glucose Random 102 mg/dL (60-115); Potassium 4.5 mmol/L (3.3-5.1); Sodium 145 mmol/L (135-145); Total Protein 7.5 g/dL (6.5-8.0)
--- NOTE | 2023-07-01 16:09 | MHC.EDTECH ---
THIS PCT ASSUMED CARE OF PATIENT AT 1600 URINE SAMPLE COLLECTED AND SENT TO LAB ,ALINA MELVIN SAID TO PUT PURE WICK IN PLACE ,PATIENT WAS REPOSITION AND BOOSTED UP IN BED 1 :1 SITTER AT BEDSIDE .
[2023-07-01 16:10] LABS: Ethanol < 10 mg/dL
[2023-07-01 16:17] LABS: Appearance Urine Clear; Color Urine Yellow; Glucose Urine UA Negative (Negative); Leukocyte Esterase Urine Trace (Negative); Nitrite Urine Negative (Negative); Specific Gravity - Urine 1.015 (1.005-1.025); UMIC TRIGGER UACC YES; Urine Blood Negative (Negative); Urine Ketones Negative (Negative); Urine Protein Negative (Neg-Trace)
[2023-07-01 16:20] LABS: Bacteria Urine None Seen (None Seen); Hyaline Casts Urine 0-2 /LPF (0-2); RBC Urine 0-2 /HPF (0-2); WBC Urine 0-5 /HPF (0-5)
--- NOTE | 2023-07-01 16:52 | PC.NURSE ---
ARRIVES FROM [facility] AFTER MAKING SI STATEMENTS WITH INTENT TO JUMP OUT OF A WINDOW. WAS SEEN BY [facility] IN THE COMMUNITY AND REFERRED FOR AN INPT BED SEARCH. SHE HAS BEEN INCREASINGLY SUICIDAL OVER THE PAST SEVERAL DAYS. SHE IS CURRENTLY ALERT, ORIENTED X4, DOES NOT APPEAR TO BE RESPONDING TO INTERNAL STIMULI, ABLE TO FOLLOW DIRECTIONS APPROPRIATELY. SHE DOES BECOME INTERMITTENTLY VERY TEARFUL AND ANXIOUS, THOUGH REDIRECTABLE. SHE HAS A HX OF CVA WITH RESIDUAL R SIDED HEMIPARESIS AND APHASIA, ABLE TO MAKE HER NEEDS KNOWN. ARRIVES WITH MOLST, DNR, DNI. PER FACILITY PAPERWORK SHE STANDS AND PIVOTS, OTHERWISE WHEELCHAIR. CRUSHED MEDS, ASPIRATION PRECAUTIONS, SUPERVISED FEEDING, MECHANICAL GROUND WITH THIN LIQUIDS. SITTER CURRENTLY AT BEDSIDE, PT IN ATTIRE PER PROTOCOL.
[2023-07-01 17:28] LABS: Amphetamine Screen Urine Not Detected (Not Detect); Barbiturates, Urine Not Detected (Not Detect); Benzodiazepines Screen Urine Not Detected (Not Detect); Buprenorphine Scr Not Detected (Not Detect); Cannabinoid Screen Urine Not Detected (Not Detect); Cocaine Screen Urine Not Detected (Not Detect); Fentanyl, urine Not Detected (Not Detect); Methadone Screen, Urine Not Detected (Not Detect); Opiate Screen Urine Not Detected (Not Detect); Oxycodone Screen Urine Not Detected (Not Detect); Phencyclidine Screen Urine Not Detected (Not Detect)
[2023-07-01 17:40] LABS: Acetaminophen LAB < 3 mcg/mL (<30); Salicylate < 5.0 mg/dL (15-30)
--- NOTE | 2023-07-01 18:48 | MHC.EDTECH ---
Patient refused dinner ,susan William aware ,will try again later .
--- NOTE | 2023-07-01 20:13 | MHC.EDTECH ---
patient still continue to eat or drink ALINA GRUBBS aware .
--- NOTE | 2023-07-01 20:14 | PHA.MEDREC ---
Pharmacy Consult ? Medication Reconciliation Pharmacy has completed the medication reconciliation. Patient from [facility] with med list. Allyssa Swan, MelisaD
[2023-07-01 21:48] VITALS: BP 145/54; PULSE 76; RESP 16; TEMP 36.4; O2SAT 97
--- NOTE | 2023-07-01 21:50 | MHC.EDTECH ---
2200 rounding done ,vitals taken ,pt resting ,snacks and fluid offer ,Patient refused again ,RN Lyle aware .1 :1 sitter at bedside .
--- NOTE | 2023-07-01 22:04 | PC.NURSE ---
pt refusing any po fluids and food
[2023-07-01 22:51] LABS: Glucose, Whole Blood 117 mg/dL (60-115)
--- NOTE | 2023-07-01 23:00 | PC.NURSE ---
this rn assumed care of pt, pt resting in stretcher, no acute distress noted, 1:1 sitter at bedside.
--- NOTE | 2023-07-02 02:09 | MHC.EDTECH ---
PATIENT AWAKE IN BED AND IS DRY ,PATIENT SAID SHE DOES NOT NEED TO VOID .
[2023-07-02 06:14] VITALS: BP 159/74; PULSE 99; RESP 16; TEMP 37.2; O2SAT 99
--- NOTE | 2023-07-02 06:24 | MHC.EDTECH ---
0600 rounding done ,vitals taken ,Patient clean and dry ,Patient did not void since ,1600 yesterday ,bladder scan was done at 0630 am, Patient had 288 ml in bladder ,Patient continue to refused fluids ,Also patient had a sore on back of head that looks like its draining , and its covered with a 2x 2 ,RN Irma is aware ,Patient was reposition and boosted up in bed .
--- NOTE | 2023-07-02 06:42 | PC.NURSE ---
pt noted to have gauze to the back of head, dry scab noted, gauze removed, pt tolerated well.
[2023-07-02 07:23] VITALS: BP 139/70; PULSE 86; RESP 16; TEMP 37; O2SAT 93
--- NOTE | 2023-07-02 07:27 | MHC.EDTECH ---
Pt refused breakfast tray, resting in bed quietly, call beckham within reach.
--- NOTE | 2023-07-02 07:37 | PC.NURSE ---
Patient refusing breakfast tray, patient is sitting up in bed, sitter at bedside, respirations equal and unlabored, patient shows no signs of distress. VSS
--- NOTE | 2023-07-02 11:39 | PC.NURSE ---
patient found to be tearful and crying, patient stated she was having bladder pain and could not urinate, patient linens dry, per notes patient has not voided since 1600 the day prior. patient bladder scanned showing 387 ml of urine. patient straight cathed 400 ml output, patient stated she felt some relief. tolerated cath well.
[2023-07-02] MEDS: Aspirin 81 MG TAB.CHEW PO (11:50)
[2023-07-02] MEDS: Metoprolol Tartrate 25 MG TABLET PO ×2 (11:50→21:21)
--- NOTE | 2023-07-02 11:58 | PC.NURSE ---
patient medicated per MAR, refused the rest of her medications. patient still refusing PO intake.
--- NOTE | 2023-07-02 13:41 | MHC.EDTECH ---
Pt refusing lunch, ALINA Conrad made aware. Repositioned in bed, purewick placed, resting quietly, call beckham within reach
[2023-07-02] MEDS: busPIRone HCl 10 MG TABLET PO ×2 (15:41→21:28)
[2023-07-02] MEDS: Baclofen 10 MG TABLET PO ×2 (15:41→21:28)
--- NOTE | 2023-07-02 15:43 | HO.PSYADMNOT ---
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 The patient was rushed to the emergency room from her penitentiary facility since the patient had been reporting suicidal ideation. According to the crisis assessment, the patient's mood worsened in the last weeks with depressed mood, anhedonia lack of energy, feelings of hopelessness and suicidal thoughts. She was assessed by the crisis team and transferring to this facility for psychiatric stabilization. On admission, the patient refused to sign a conditional voluntary. I interview her and she reported that she was having suicidal thoughts, that she was feeling more depressed and her sleep was been worse in the last weeks. Later on, abruptly she started yelling and screaming stating to go away from her. Had stopped the interview at this moment. The patient is a very poor historian so we will try to gather more collateral information, at this point, the patient has verbalized suicidal ideation and she is unable to contract for safety at this moment. The patient is severely impaired with Anne and we are going to keep her on 5 minutes checks. Past Psychiatric History: According to the patient she has never been in a psychiatric unit but she has a very poor historian. She had being on antidepressants, Paxil 30 mg and Remeron 15 mg p.o. q.h.s.. Most likely she had being treated as an outpatient in the past. Medical Evaluation Reviewed: Yes [facility] Narrative: CVA Status post stroke Her blood pressure Family History: Unclear, the patient unable to provide history. Social History: The patient is a resident in a penitentiary facility for several years, status post CVA with right hemiparesis. Substance History: Denies Trauma History: Apparently there was the possibility of trauma in the past but the patient was unable to verbalize Diagnostics Vital Signs (24Hr): Vital Signs - 24 hr 07/01/23 21:48 07/02/23 06:14 07/02/23 07:23 Temperature 97.5 F 98.9 F 98.6 F Pulse Rate 76 99 86 Respiratory Rate 16 16 16 Blood Pressure 145/54 H 159/74 H 139/70 Pulse Oximetry 97 99 93 Oxygen Delivery Method Room Air Room Air Room Air BMI result Body Mass Index 20.3 Labs 07/01/23 15:45 07/01/23 15:45 Labs: Laboratory Results - last 48 hr 07/01/23 07/01/23 07/01/23 15:45 16:08 22:41 WBC 5.7 RBC 4.59 Hgb 13.9 Hct 42.3 MCV 92.2 MCH 30.3 MCHC 32.9 RDW 13.6 Plt Count 240 MPV 9.1 L Immature Gran % (Auto) 0.2 Neut % (Auto) 61.0 Lymph % (Auto) 26.0 [place] % (Auto) 10.5 Eos % (Auto) 1.4 Baso % (Auto) 0.9 Lymph # (Auto) 1.5 [place] # (Auto) 0.6 Eos # (Auto) 0.1 Baso # (Auto) 0.1 Abs Immat Gran (auto) 0.01 Absolute Neuts (auto) 3.5 Absolute Nucleated RBC 0.000 Nucleated RBC % (auto) 0.0 Sodium 145 Potassium 4.5 Chloride 105 Carbon Dioxide 28 Anion Gap 17 BUN 14 Creatinine 0.87 Estim Creat Clear Calc 45.1 Estimated GFR > 60 POC Glucose 117 H Random Glucose 102 Calcium 9.5 Total Bilirubin 0.3 AST 22 ALT 12 Alkaline Phosphatase 101 Total Protein 7.5 Albumin 4.0 Urine Color Yellow Urine Appearance Clear Urine pH 6.0 Ur Specific [place] 1.015 Urine Protein Negative Urine Glucose (UA) Negative Urine Ketones Negative Urine Blood Negative Urine Nitrite Negative Ur Leukocyte Esterase Trace H Urine RBC 0-2 Urine WBC 0-5 Ur Squamous Epith Cells 11-20 Urine Bacteria None Seen Hyaline Casts 0-2 Salicylates < 5.0 L Urine Opiates Screen Not Detected Ur Buprenorphine Scrn Not Detected Ur Oxycodone Screen Not Detected Urine Methadone Screen Not Detected Urine Fentanyl Screen Not Detected Acetaminophen < 3 Ur Barbiturates Screen Not Detected Ur Phencyclidine Scrn Not Detected Ur Amphetamines Screen Not Detected U Benzodiazepines Scrn Not Detected Urine Cocaine Screen Not Detected U Marijuana (THC) Screen Not Detected Ethyl Alcohol < 10 Meds/Allergies Meds Home Medications ?Medication ?Instructions ?Recorded ?Confirmed ?Type acetaminophen 650 mg 650 mg PO TID PRN Pain 10/19/21 07/01/23 History tablet,extended release baclofen 10 mg tablet 1 tab PO TID 10/19/21 07/01/23 History buspirone 10 mg tablet 1 tab PO TID 10/19/21 07/01/23 History gabapentin 300 mg capsule 900 mg PO BEDTIME 10/19/21 07/01/23 History gabapentin 400 mg capsule 400 mg PO BID@0500,1300 10/19/21 07/01/23 History loratadine 10 mg tablet 10 mg PO DAILY PRN Allergy Symptoms 10/19/21 07/01/23 History magnesium oxide 400 mg PO BEDTIME 10/19/21 07/01/23 History melatonin 5 mg tablet 5 mg PO BEDTIME Insomnia 10/19/21 07/01/23 History metoprolol tartrate 25 mg tablet 1 tab PO BID@1200,2100 10/19/21 07/01/23 History pravastatin 10 mg tablet 1 tab PO BEDTIME 10/19/21 07/01/23 History pravastatin 20 mg tablet 1 tab PO BEDTIME 10/19/21 07/01/23 History rivaroxaban 20 mg tablet (Xarelto) 1 tab PO BEDTIME 10/19/21 07/01/23 History acetaminophen 325 mg tablet 650 mg PO BEDTIME 07/01/23 07/01/23 History aspirin 81 mg chewable tablet 81 mg PO DAILY@1200 07/01/23 07/01/23 History gabapentin 300 mg capsule 300 mg PO Q12H PRN Pain 07/01/23 07/01/23 History mirtazapine 15 mg tablet 15 mg PO BEDTIME 07/01/23 07/01/23 History ondansetron 4 mg disintegrating 4 mg PO Q6H PRN Nausea And Vomiting 07/01/23 07/01/23 History tablet paroxetine HCl 30 mg tablet 30 mg PO DAILY@1200 07/01/23 07/01/23 History sennosides 8.6 mg tablet (senna) 8.6 mg PO DAILY 07/01/23 07/01/23 History trazodone 50 mg tablet 25 mg PO BEDTIME 07/01/23 07/01/23 History Allergies Allergies Allergy/AdvReac Type Severity Reaction Status Date / Time alprazolam [Xanax] Allergy Unknown Unknown Verified 07/01/23 13:31 penicillin V Allergy Unknown Unknown Verified 07/01/23 13:31 Penicillins [PENICILLINS] Allergy Unknown HIVES AND Verified 07/01/23 13:31 SOB aspirin AdvReac Unknown N/V, Verified 07/01/23 13:31 BURNING diflunisal [DIFLUNISAL] AdvReac Unknown WEAKNESS Verified 07/01/23 13:31 erythromycin base AdvReac Unknown RAPID Verified 07/01/23 13:31 [ERYTHROMYCIN BASE] HEART RATE iodine [IODINE] AdvReac Unknown VOMITING Verified 07/01/23 13:31 Sulfa (Sulfonamide AdvReac Unknown NAUSEA & Verified 07/01/23 13:31 Antibiotics) VOMITING [SULFA (SULFONAMIDE ANTIBIOTICS)] Contrast Allergy PreMed Pack Allergy Unknown Unknown Uncoded 07/01/23 13:31 Darvocet A500 Allergy Unknown Unknown Uncoded 07/01/23 13:31 Seafood Allergy Unknown Unknown Uncoded 07/01/23 13:31 Sulfa Allergy Unknown Unknown Uncoded 07/01/23 13:31 From DARVON AdvReac Unknown HALLUCINATI Uncoded 07/01/23 13:31 ONS SEAFOOD AdvReac Unknown N/V Uncoded 07/01/23 13:31 Mental Status Exam Mental Status Exam Patient Appearance: Appropriate (On hospital gowns) Patient Orientation: Person Level of Consciousness: Awake and Restless Patient Behavior: Guarded, Passive and Belligerent Mood Description: Withdrawn Affect Description: Blunted Patient Cognition Impaired: Yes Ability to Follow Directions: Fair Speech Pattern: Clear and Impoverished Hallucinations: None Delusions: Ideas of Reference Thought Process: Distracted and Slowed Thinking Thought Content: positive for [place] and positive for Poverty of Content Depressive Symptoms: Thoughts of /Suicide Judgement: Poor Assessment & Plan Assessment & Plan (1) Depressive disorder: Status: Acute Code(s): F32.A - Depression, unspecified (2) Dementia: Status: Acute Code(s): F03.90 - Unspecified dementia, unspecified severity, without behavioral disturbance, psychotic disturbance, mood disturbance, and anxiety Plan The patient is an elderly female with a past history of CVA with right hemiparesis, resident of a penitentiary facility referred to the emergency room for suicidal ideation in the context of worsening depressive symptoms such as poor sleep and lack of energy. On the intake interview the patient was irritable and paranoid. Plan 1. Gather more collateral information. The patient is a very poor historian unable to provide more details. 2. Increase Remeron up to 30 mg p.o. q.h.s. since the patient is complaining of insomnia. 3. Continue with Paxil 30 mg p.o. at 12:00 o'clock. 4. Continue with medical treatment. 5. Lab work for tomorrow morning reassessment with results. 6. 5 minutes check since the patient is unable to contract for safety at this moment. 7. Start a very low dose of Zyprexa as a mood stabilizer. Patient educated on: diagnosis Reason for continued inpatient stay Substantial Risk for: inability to function, rapid decompensation and med/psych decompensation Statement Statement: I have reviewed the history and physical and performed a pertinent examination on my patient. No changes have occurred unless specified. If the History and Physical was not performed prior to admission, the Hospitalist's service will be consulted for completing the admission physical. Time Spent With Patient Time: Total time managing care of this patient today __45__ minutes.
[2023-07-02 15:56] VITALS: BP 172/60; PULSE 77; RESP 17; TEMP 37.3; O2SAT 95
[2023-07-02 15:57] VITALS: BMI 13.5
--- NOTE | 2023-07-02 16:41 | PC.ADMIT ---
Landy Cochran was admitted to S1 on a 12b at 14:30 from [facility] for treatment of SI secondary to unspecified anxiety and depressive disorder. Prior to admission onto the unit, patient was assessed by crisis after presenting with increased agitation, confusion and endorsing active SI. Upon assessment, patient is alert and oriented to herself and that she's in a hospital. Though it was reported from staff at her living facility that Landy has made several SI statements to staff and attempted to throw herself out of her wheelchair on multiple occasions, she denies SI/HI/AVH when asked by this nurse, and states I don't remember, not that I can think of, when asked if she's ever attempted to or made statements to harm herself. Patient has reported a hx of a stroke related to complications from cardiac surgery, which has caused right sided weakness and aphasia, (as a result patient is wheelchair bound with assist to transfer). She reports poor po intake due to loss of appetite and trouble both falling and staying asleep. Skin assessment was completed with another nurse and all visible skin appears intact except for a dried scab on the back of her scalp. Vitals and height/weight taken, patient taking medications whole in any vehicle. Patient placed on 5 minute checks at this time.
[2023-07-02 20:00] VITALS: BP 126/57; PULSE 60; RESP 16; TEMP 35.8; O2SAT 95
[2023-07-02] MEDS: Melatonin 3 MG TABLET 6 MG PO (21:20)
[2023-07-02] MEDS: Pravastatin Sodium 10 MG TABLET PO (21:20)
[2023-07-02 21:21] VITALS: BP 126/57; PULSE 76
[2023-07-02] MEDS: traZODone HCL 25 MG HALFTAB PO (21:21)
[2023-07-02] MEDS: OLANZapine 2.5 MG TABLET PO (21:21)
[2023-07-02] MEDS: Rivaroxaban 20 MG TABLET PO (21:21)
[2023-07-02] MEDS: Mirtazapine 30 MG TABLET PO (21:21)
[2023-07-02] MEDS: Magnesium Oxide 400 MG TABLET PO (21:21)
[2023-07-02] MEDS: Gabapentin 300 MG CAPSULE 900 MG PO (21:27)
[2023-07-02] MEDS: Pravastatin Sodium 20 MG TABLET PO (21:27)
[2023-07-02] MEDS: Acetaminophen 325 MG TABLET 650 MG PO (21:27)
[2023-07-03] MEDS: Gabapentin 400 MG CAPSULE PO ×2 (04:43→12:30)
[2023-07-03 08:00] VITALS: BP 164/88; PULSE 54; RESP 18; TEMP 36.5; O2SAT 98
[2023-07-03] MEDS: Acetaminophen 325 MG TABLET 650 MG PO ×2 (08:50→20:30)
[2023-07-03] MEDS: busPIRone HCl 10 MG TABLET PO ×3 (08:51→20:30)
[2023-07-03] MEDS: Sennosides 8.6 MG TABLET PO (08:51)
[2023-07-03] MEDS: Baclofen 10 MG TABLET PO ×3 (08:51→20:30)
[2023-07-03 11:36] LABS: Alanine Aminotransferase 12 U/L (0-31); Albumin Level 3.7 g/dL (3.5-5.0); Alkaline Phosphatase 83 U/L (39-117); Anion Gap 13 (12-20); Aspartate Amino Transferase 22 U/L (5-31); Bilirubin Total 0.3 mg/dL (0.0-1.0); Blood Urea Nitrogen 13 mg/dL (9-16); Calcium 9.6 mg/dL (8.4-10.2); Carbon Dioxide 29 mmol/L (22-29); Chloride 104 mmol/L (96-108); Cholesterol 146 mg/dL (<200); Creatinine Clr Calc Pharmacy 31.7; Estimated Glomerular Filt Rate > 60; Glucose Fasting 79 mg/dL (60-99); HDL Cholesterol 49 mg/dL (>40); LDL Cholesterol Calculated 78 mg/dL (<100); Potassium 3.6 mmol/L (3.3-5.1); Sodium 142 mmol/L (135-145); Triglycerides 98 mg/dL (<150)
[2023-07-03 11:44] VITALS: BP 119/58; PULSE 53
[2023-07-03] MEDS: Aspirin 81 MG TAB.CHEW PO (11:46)
[2023-07-03] MEDS: PARoxetine HCL 30 MG TABLET PO (11:47)
--- NOTE | 2023-07-03 12:21 | HO.PSYCHPN ---
Subjective Subjective Date of Service: 07/03/23 Reason For Visit: SI Subjective Notes: Conditional Voluntary Interim History: The nursing staff reported the patient had been anxious agitated at times confused. She slept on and off during the night. She had been seen very fidgeting. On interview the patient was confused irritable at times. We will try to gather more collateral information. Mental Status Exam Mental Status Exam Patient Appearance: Unkempt Patient Orientation: Person Level of Consciousness: Awake Patient Behavior: Guarded and Passive Mood Description: Withdrawn Affect Description: Constricted Patient Cognition Impaired: Yes Ability to Follow Directions: Good Speech Pattern: Clear Hallucinations: None Delusions: Paranoid Ideation and Ideas of Reference Thought Process: Distracted and Slowed Thinking Thought Content: positive for [place] and positive for Poverty of Content Judgement: Poor Diagnostics Vital Signs (24Hr): Vital Signs - 24 hr 07/02/23 15:56 07/02/23 20:00 07/02/23 21:21 Temperature 99.1 F 96.5 F L Pulse Rate 77 60 76 Respiratory Rate 17 16 Blood Pressure 172/60 H 126/57 L 126/57 L Pulse Oximetry 95 95 Oxygen Delivery Method Room Air Room Air 07/03/23 08:00 07/03/23 11:44 Temperature 97.7 F Pulse Rate 54 53 Respiratory Rate 18 Blood Pressure 164/88 H 119/58 L Pulse Oximetry 98 Oxygen Delivery Method Room Air BMI result Body Mass Index 13.5 Labs 07/01/23 15:45 07/03/23 11:02 Labs: Laboratory Results - last 48 hr 07/01/23 07/01/23 07/01/23 15:45 16:08 22:41 WBC 5.7 RBC 4.59 Hgb 13.9 Hct 42.3 MCV 92.2 MCH 30.3 MCHC 32.9 RDW 13.6 Plt Count 240 MPV 9.1 L Immature Gran % (Auto) 0.2 Neut % (Auto) 61.0 Lymph % (Auto) 26.0 [place] % (Auto) 10.5 Eos % (Auto) 1.4 Baso % (Auto) 0.9 Lymph # (Auto) 1.5 [place] # (Auto) 0.6 Eos # (Auto) 0.1 Baso # (Auto) 0.1 Abs Immat Gran (auto) 0.01 Absolute Neuts (auto) 3.5 Absolute Nucleated RBC 0.000 Nucleated RBC % (auto) 0.0 Sodium 145 Potassium 4.5 Chloride 105 Carbon Dioxide 28 Anion Gap 17 BUN 14 Creatinine 0.87 Estim Creat Clear Calc 45.1 Estimated GFR > 60 POC Glucose 117 H Random Glucose 102 Fasting Glucose Calcium 9.5 Total Bilirubin 0.3 AST 22 ALT 12 Alkaline Phosphatase 101 Total Protein 7.5 Albumin 4.0 Triglycerides Cholesterol LDL Cholesterol, Calc HDL Cholesterol Urine Color Yellow Urine Appearance Clear Urine pH 6.0 Ur Specific [place] 1.015 Urine Protein Negative Urine Glucose (UA) Negative Urine Ketones Negative Urine Blood Negative Urine Nitrite Negative Ur Leukocyte Esterase Trace H Urine RBC 0-2 Urine WBC 0-5 Ur Squamous Epith Cells 11-20 Urine Bacteria None Seen Hyaline Casts 0-2 Salicylates < 5.0 L Urine Opiates Screen Not Detected Ur Buprenorphine Scrn Not Detected Ur Oxycodone Screen Not Detected Urine Methadone Screen Not Detected Urine Fentanyl Screen Not Detected Acetaminophen < 3 Ur Barbiturates Screen Not Detected Ur Phencyclidine Scrn Not Detected Ur Amphetamines Screen Not Detected U Benzodiazepines Scrn Not Detected Urine Cocaine Screen Not Detected U Marijuana (THC) Screen Not Detected Ethyl Alcohol < 10 07/03/23 11:02 WBC RBC Hgb Hct MCV MCH MCHC RDW Plt Count MPV Immature Gran % (Auto) Neut % (Auto) Lymph % (Auto) [place] % (Auto) Eos % (Auto) Baso % (Auto) Lymph # (Auto) [place] # (Auto) Eos # (Auto) Baso # (Auto) Abs Immat Gran (auto) Absolute Neuts (auto) Absolute Nucleated RBC Nucleated RBC % (auto) Sodium 142 Potassium 3.6 Chloride 104 Carbon Dioxide 29 Anion Gap 13 BUN 13 Creatinine 0.82 Estim Creat Clear Calc 31.7 Estimated GFR > 60 POC Glucose Random Glucose Fasting Glucose 79 Calcium 9.6 Total Bilirubin 0.3 AST 22 ALT 12 Alkaline Phosphatase 83 Total Protein 7.0 Albumin 3.7 Triglycerides 98 Cholesterol 146 LDL Cholesterol, Calc 78 HDL Cholesterol 49 Urine Color Urine Appearance Urine pH Ur Specific [place] Urine Protein Urine Glucose (UA) Urine Ketones Urine Blood Urine Nitrite Ur Leukocyte Esterase Urine RBC Urine WBC Ur Squamous Epith Cells Urine Bacteria Hyaline Casts Salicylates Urine Opiates Screen Ur Buprenorphine Scrn Ur Oxycodone Screen Urine Methadone Screen Urine Fentanyl Screen Acetaminophen Ur Barbiturates Screen Ur Phencyclidine Scrn Ur Amphetamines Screen U Benzodiazepines Scrn Urine Cocaine Screen U Marijuana (THC) Screen Ethyl Alcohol Medications Medications Current Medications Acetaminophen (Acetaminophen 325 Mg Tablet) 650 mg PO BEDTIME [facility] Last Admin: 07/02/23 21:27 Dose: 650 mg Acetaminophen (Acetaminophen 325 Mg Tablet) 650 mg PO TID PRN PRN Reason: Pain Last Admin: 07/03/23 08:50 Dose: 650 mg Al Hydroxide/Mg Hydroxide (Magnesium Hydrox/Alum Hydrox 30 Ml Oral.Susp) 30 ml PO Q6H PRN PRN Reason: Heartburn/Nausea Aspirin (Aspirin 81 Mg Tab.Chew) 81 mg PO DAILY@1200 [facility] Last Admin: 07/03/23 11:46 Dose: 81 mg Baclofen (Baclofen 10 Mg Tablet) 10 mg PO TID [facility] Last Admin: 07/03/23 08:51 Dose: 10 mg Buspirone HCl (Buspirone Hcl 10 Mg Tablet) 10 mg PO TID [facility] Last Admin: 07/03/23 08:51 Dose: 10 mg Gabapentin (Gabapentin 300 Mg Capsule) 900 mg PO BEDTIME [facility] Last Admin: 07/02/23 21:27 Dose: 900 mg Gabapentin (Gabapentin 400 Mg Capsule) 400 mg PO BID@0500,1300 [facility] Last Admin: 07/03/23 04:43 Dose: 400 mg Loratadine (Loratadine 10 Mg Tablet) 10 mg PO DAILY PRN PRN Reason: Allergy Symptoms Magnesium Hydroxide (Milk Of Magnesia 30 Ml Oral.Susp) 30 ml PO DAILY PRN PRN Reason: Constipation Magnesium Oxide (Magnesium Oxide 400 Mg Tablet) 400 mg PO BEDTIME [facility] Last Admin: 07/02/23 21:21 Dose: 400 mg Melatonin (Melatonin 3 Mg Tablet) 6 mg PO BEDTIME [facility] Last Admin: 07/02/23 21:20 Dose: 6 mg Metoprolol Tartrate (Metoprolol Tartrate 25 Mg Tablet) 25 mg PO BID@1200,2100 ADENIKE; Protocol Last Admin: 07/03/23 11:47 Dose: Not Given Mirtazapine (Mirtazapine 30 Mg Tablet) 30 mg PO BEDTIME [facility] Last Admin: 07/02/23 21:21 Dose: 30 mg Olanzapine (Olanzapine 2.5 Mg Tablet) 2.5 mg PO BEDTIME [facility] Last Admin: 07/02/23 21:21 Dose: 2.5 mg Ondansetron HCl (Ondansetron Odt 4 Mg Tab.Rapdis) 4 mg TRANSLINGU Q6H PRN PRN Reason: Nausea And Vomiting Paroxetine HCl (Paroxetine Hcl 30 Mg Tablet) 30 mg PO DAILY@1200 [facility] Last Admin: 07/03/23 11:47 Dose: 30 mg Pravastatin Sodium (Pravastatin Sodium 10 Mg Tablet) 10 mg PO BEDTIME [facility] Last Admin: 07/02/23 21:20 Dose: 10 mg Pravastatin Sodium (Pravastatin Sodium 20 Mg Tablet) 20 mg PO BEDTIME [facility] Last Admin: 07/02/23 21:27 Dose: 20 mg Rivaroxaban (Rivaroxaban 20 Mg Tablet) 20 mg PO DAILY@1630 [facility] Last Admin: 07/02/23 21:21 Dose: 20 mg Senna (Sennosides 8.6 Mg Tablet) 8.6 mg PO DAILY [facility] Last Admin: 07/03/23 08:51 Dose: 8.6 mg Trazodone HCl (Trazodone Hcl 25 Mg Halftab) 25 mg PO BEDTIME [facility] Last Admin: 07/02/23 21:21 Dose: 25 mg Trazodone HCl (Trazodone Hcl 50 Mg Tablet) 50 mg PO BEDTIME MRX1 PRN PRN Reason: Insomnia Allergies Allergies Allergy/AdvReac Type Severity Reaction Status Date / Time alprazolam [Xanax] Allergy Unknown Unknown Verified 07/01/23 13:31 penicillin V Allergy Unknown Unknown Verified 07/01/23 13:31 Penicillins [PENICILLINS] Allergy Unknown HIVES AND Verified 07/01/23 13:31 SOB aspirin AdvReac Unknown N/V, Verified 07/01/23 13:31 BURNING diflunisal [DIFLUNISAL] AdvReac Unknown WEAKNESS Verified 07/01/23 13:31 erythromycin base AdvReac Unknown RAPID Verified 07/01/23 13:31 [ERYTHROMYCIN BASE] HEART RATE iodine [IODINE] AdvReac Unknown VOMITING Verified 07/01/23 13:31 Sulfa (Sulfonamide AdvReac Unknown NAUSEA & Verified 07/01/23 13:31 Antibiotics) VOMITING [SULFA (SULFONAMIDE ANTIBIOTICS)] Contrast Allergy PreMed Pack Allergy Unknown Unknown Uncoded 07/01/23 13:31 Darvocet A500 Allergy Unknown Unknown Uncoded 07/01/23 13:31 Seafood Allergy Unknown Unknown Uncoded 07/01/23 13:31 Sulfa Allergy Unknown Unknown Uncoded 05/06/24 13:31 From DARVON AdvReac Unknown HALLUCINATI Uncoded 07/01/23 13:31 ONS SEAFOOD AdvReac Unknown N/V Uncoded 07/01/23 13:31 Assessment & Plan Assessment & Plan (1) Depressive disorder: Status: Acute Code(s): F32.A - Depression, unspecified (2) Dementia: Status: Acute Code(s): F03.90 - Unspecified dementia, unspecified severity, without behavioral disturbance, psychotic disturbance, mood disturbance, and anxiety Plan The patient is an elderly female with a past history of CVA with right hemiparesis, resident of a [facility] facility referred to the emergency room for suicidal ideation in the context of worsening depressive symptoms such as poor sleep and lack of energy. On the intake interview the patient was irritable and paranoid. Plan 1. Gather more collateral information. The patient is a very poor historian unable to provide more details. 2. Increase Remeron up to 30 mg p.o. q.h.s. since the patient is complaining of insomnia. 3. Continue with Paxil 30 mg p.o. at 12:00 o'clock. 4. Continue with medical treatment. 5. Lab work for tomorrow morning reassessment with results. 6. 5 minutes check since the patient is unable to contract for safety at this moment. 7. Start a very low dose of Zyprexa as a mood stabilizer. Reason for continued inpatient stay Substantial Risk for: inability to function, rapid decompensation and med/psych decompensation Time Spent With Patient Time: Total time managing care of this patient today __20__ minutes.
[2023-07-03 13:36] VITALS: BMI 20.3
[2023-07-03] MEDS: Rivaroxaban 20 MG TABLET PO (16:47)
[2023-07-03 20:28] VITALS: BP 141/61; PULSE 72; RESP 16; TEMP 35.9; O2SAT 99
[2023-07-03] MEDS: traZODone HCL 25 MG HALFTAB PO (20:29)
[2023-07-03 20:30] VITALS: BP 141/61; PULSE 72
[2023-07-03] MEDS: Pravastatin Sodium 10 MG TABLET PO (20:30)
[2023-07-03] MEDS: Pravastatin Sodium 20 MG TABLET PO (20:30)
[2023-07-03] MEDS: Magnesium Oxide 400 MG TABLET PO (20:30)
[2023-07-03] MEDS: Mirtazapine 30 MG TABLET PO (20:30)
[2023-07-03] MEDS: Metoprolol Tartrate 25 MG TABLET PO (20:30)
[2023-07-03] MEDS: OLANZapine 2.5 MG TABLET PO (20:30)
[2023-07-03] MEDS: Melatonin 3 MG TABLET 6 MG PO (20:31)
[2023-07-03] MEDS: Gabapentin 300 MG CAPSULE 900 MG PO (20:31)
[2023-07-04] MEDS: Gabapentin 400 MG CAPSULE PO ×2 (05:18→12:30)
[2023-07-04 07:00] VITALS: BMI 19.9
--- NOTE | 2023-07-04 07:00 | PC.NURSE ---
Patient did not void whole shift. Patient's intake is poor, patient's bladder scanned at 0646 has 346 ml, Tiff (CC) will follow on bladder scan order. Patient did not report any bladder pain or discomfort, sated I don't pee much will continue to monitor
[2023-07-04 08:00] VITALS: BP 151/65; PULSE 60; RESP 16; O2SAT 97
--- NOTE | 2023-07-04 08:20 | HO.PSYCHPN ---
Subjective Subjective Date of Service: 07/04/23 Reason For Visit: SI Subjective Notes: Conditional Voluntary Interim History: The nursing staff reported the patient signed yesterday conditional voluntary. She remains in her room most of the time, hypoactive and dysphoric. On interview the patient reports that she is feeling depressed, apparently her sleep improved a little with the addition of olanzapine at night and increase of Remeron. but still sleeping only 5 hours. Mental Status Exam Mental Status Exam Patient Appearance: Appropriate (On hospital gowns) Patient Orientation: Person Level of Consciousness: Awake and Disoriented Patient Behavior: Guarded and Passive Mood Description: Withdrawn and Depressed Affect Description: Blunted Patient Cognition Impaired: Yes Ability to Follow Directions: Fair Speech Pattern: Clear Hallucinations: None Delusions: Ideas of Reference Thought Process: Distracted and Slowed Thinking Thought Content: positive for [place], positive for Poverty of Content and positive for Thought Blocking Judgement: Poor Diagnostics Vital Signs (24Hr): Vital Signs - 24 hr 07/03/23 11:44 07/03/23 20:28 07/03/23 20:30 Temperature 96.7 F L Pulse Rate 53 72 72 Respiratory Rate 16 Blood Pressure 119/58 L 141/61 H 141/61 H Pulse Oximetry 99 Oxygen Delivery Method Room Air BMI result Body Mass Index 20.3 Labs 07/01/23 15:45 07/03/23 11:02 Labs: Laboratory Results - last 48 hr 07/03/23 11:02 Sodium 142 Potassium 3.6 Chloride 104 Carbon Dioxide 29 Anion Gap 13 BUN 13 Creatinine 0.82 Estim Creat Clear Calc 31.7 Estimated GFR > 60 Fasting Glucose 79 Calcium 9.6 Total Bilirubin 0.3 AST 22 ALT 12 Alkaline Phosphatase 83 Total Protein 7.0 Albumin 3.7 Triglycerides 98 Cholesterol 146 LDL Cholesterol, Calc 78 HDL Cholesterol 49 Medications Medications Current Medications Acetaminophen (Acetaminophen 325 Mg Tablet) 650 mg PO BEDTIME [facility] Last Admin: 07/03/23 20:30 Dose: 650 mg Acetaminophen (Acetaminophen 325 Mg Tablet) 650 mg PO TID PRN PRN Reason: Pain Last Admin: 07/03/23 08:50 Dose: 650 mg Al Hydroxide/Mg Hydroxide (Magnesium Hydrox/Alum Hydrox 30 Ml Oral.Susp) 30 ml PO Q6H PRN PRN Reason: Heartburn/Nausea Aspirin (Aspirin 81 Mg Tab.Chew) 81 mg PO DAILY@1200 [facility] Last Admin: 05/08/24 11:46 Dose: 81 mg Baclofen (Baclofen 10 Mg Tablet) 10 mg PO TID [facility] Last Admin: 07/03/23 20:30 Dose: 10 mg Buspirone HCl (Buspirone Hcl 10 Mg Tablet) 10 mg PO TID [facility] Last Admin: 07/03/23 20:30 Dose: 10 mg Gabapentin (Gabapentin 300 Mg Capsule) 900 mg PO BEDTIME [facility] Last Admin: 07/03/23 20:31 Dose: 900 mg Gabapentin (Gabapentin 400 Mg Capsule) 400 mg PO BID@0500,1300 [facility] Last Admin: 07/04/23 05:18 Dose: 400 mg Loratadine (Loratadine 10 Mg Tablet) 10 mg PO DAILY PRN PRN Reason: Allergy Symptoms Magnesium Hydroxide (Milk Of Magnesia 30 Ml Oral.Susp) 30 ml PO DAILY PRN PRN Reason: Constipation Magnesium Oxide (Magnesium Oxide 400 Mg Tablet) 400 mg PO BEDTIME [facility] Last Admin: 07/03/23 20:30 Dose: 400 mg Melatonin (Melatonin 3 Mg Tablet) 6 mg PO BEDTIME [facility] Last Admin: 07/03/23 20:31 Dose: 6 mg Metoprolol Tartrate (Metoprolol Tartrate 25 Mg Tablet) 25 mg PO BID@1200,2100 [facility]; Protocol Last Admin: 07/03/23 20:30 Dose: 25 mg Mirtazapine (Mirtazapine 30 Mg Tablet) 30 mg PO BEDTIME [facility] Last Admin: 07/03/23 20:30 Dose: 30 mg Olanzapine (Olanzapine 2.5 Mg Tablet) 2.5 mg PO BEDTIME [facility] Last Admin: 07/03/23 20:30 Dose: 2.5 mg Ondansetron HCl (Ondansetron Odt 4 Mg Tab.Rapdis) 4 mg TRANSLINGU Q6H PRN PRN Reason: Nausea And Vomiting Paroxetine HCl (Paroxetine Hcl 30 Mg Tablet) 30 mg PO DAILY@1200 [facility] Last Admin: 07/03/23 11:47 Dose: 30 mg Pravastatin Sodium (Pravastatin Sodium 10 Mg Tablet) 10 mg PO BEDTIME [facility] Last Admin: 07/03/23 20:30 Dose: 10 mg Pravastatin Sodium (Pravastatin Sodium 20 Mg Tablet) 20 mg PO BEDTIME [facility] Last Admin: 07/03/23 20:30 Dose: 20 mg Rivaroxaban (Rivaroxaban 20 Mg Tablet) 20 mg PO DAILY@1630 [facility] Last Admin: 07/03/23 16:47 Dose: 20 mg Senna (Sennosides 8.6 Mg Tablet) 8.6 mg PO DAILY [facility] Last Admin: 07/03/23 08:51 Dose: 8.6 mg Trazodone HCl (Trazodone Hcl 25 Mg Halftab) 25 mg PO BEDTIME [facility] Last Admin: 07/03/23 20:29 Dose: 25 mg Trazodone HCl (Trazodone Hcl 50 Mg Tablet) 50 mg PO BEDTIME MRX1 PRN PRN Reason: Insomnia Allergies Allergies Allergy/AdvReac Type Severity Reaction Status Date / Time alprazolam [Xanax] Allergy Unknown Unknown Verified 07/01/23 13:31 penicillin V Allergy Unknown Unknown Verified 07/01/23 13:31 Penicillins [PENICILLINS] Allergy Unknown HIVES AND Verified 07/01/23 13:31 SOB aspirin AdvReac Unknown N/V, Verified 07/01/23 13:31 BURNING diflunisal [DIFLUNISAL] AdvReac Unknown WEAKNESS Verified 07/01/23 13:31 erythromycin base AdvReac Unknown RAPID Verified 07/01/23 13:31 [ERYTHROMYCIN BASE] HEART RATE iodine [IODINE] AdvReac Unknown VOMITING Verified 07/01/23 13:31 Sulfa (Sulfonamide AdvReac Unknown NAUSEA & Verified 07/01/23 13:31 Antibiotics) VOMITING [SULFA (SULFONAMIDE ANTIBIOTICS)] Contrast Allergy PreMed Pack Allergy Unknown Unknown Uncoded 07/01/23 13:31 Darvocet A500 Allergy Unknown Unknown Uncoded 07/01/23 13:31 Seafood Allergy Unknown Unknown Uncoded 07/01/23 13:31 Sulfa Allergy Unknown Unknown Uncoded 07/01/23 13:31 From DARVON AdvReac Unknown HALLUCINATI Uncoded 07/01/23 13:31 ONS SEAFOOD AdvReac Unknown N/V Uncoded 07/01/23 13:31 Assessment & Plan Assessment & Plan (1) Depressive disorder: Status: Acute Code(s): F32.A - Depression, unspecified (2) Dementia: Status: Acute Code(s): F03.90 - Unspecified dementia, unspecified severity, without behavioral disturbance, psychotic disturbance, mood disturbance, and anxiety Plan The patient is an elderly female with a past history of CVA with right hemiparesis, resident of a intermediate facility referred to the emergency room for suicidal ideation in the context of worsening depressive symptoms such as poor sleep and lack of energy. On the intake interview the patient was irritable and paranoid. Plan 1. Gather more collateral information. The patient is a very poor historian unable to provide more details. 2. Increase Remeron up to 30 mg p.o. q.h.s. since the patient is complaining of insomnia. 3. Continue with Paxil 30 mg p.o. at 12:00 o'clock. 4. Continue with medical treatment. 5. Lab work for tomorrow morning reassessment with results. 6. 5 minutes check since the patient is unable to contract for safety at this moment. 7. Start a very low dose of Zyprexa as a mood stabilizer. 8. Increased melatonin up to 9 mg p.o. q.h.s. to target insomnia. Reason for continued inpatient stay Substantial Risk for: inability to function, rapid decompensation and med/psych decompensation Time Spent With Patient Time: Total time managing care of this patient today __20__ minutes.
[2023-07-04] MEDS: Sennosides 8.6 MG TABLET PO (09:19)
[2023-07-04] MEDS: Baclofen 10 MG TABLET PO ×3 (09:19→21:15)
[2023-07-04] MEDS: busPIRone HCl 10 MG TABLET PO ×3 (09:19→21:14)
[2023-07-04] MEDS: Metoprolol Tartrate 25 MG TABLET PO ×2 (12:30→21:15)
[2023-07-04] MEDS: Aspirin 81 MG TAB.CHEW PO (12:30)
[2023-07-04] MEDS: PARoxetine HCL 30 MG TABLET PO (12:30)
[2023-07-04 12:33] VITALS: BP 118/56; PULSE 62; O2SAT 100
[2023-07-04] MEDS: Rivaroxaban 20 MG TABLET PO (16:14)
[2023-07-04 20:00] VITALS: BP 141/65; PULSE 62; RESP 18; TEMP 36.4; O2SAT 96
[2023-07-04] MEDS: Gabapentin 300 MG CAPSULE 900 MG PO (21:13)
[2023-07-04] MEDS: Acetaminophen 325 MG TABLET 650 MG PO (21:14)
[2023-07-04 21:15] VITALS: BP 141/65; PULSE 62
[2023-07-04] MEDS: Pravastatin Sodium 20 MG TABLET PO (21:15)
[2023-07-04] MEDS: OLANZapine 2.5 MG TABLET PO (21:15)
[2023-07-04] MEDS: Melatonin 3 MG TABLET 9 MG PO (21:15)
[2023-07-04] MEDS: Magnesium Oxide 400 MG TABLET PO (21:15)
[2023-07-04] MEDS: Pravastatin Sodium 10 MG TABLET PO (21:16)
[2023-07-04] MEDS: Mirtazapine 30 MG TABLET PO (21:16)
[2023-07-04] MEDS: traZODone HCL 25 MG HALFTAB PO (21:16)
[2023-07-05] MEDS: Gabapentin 400 MG CAPSULE PO ×2 (05:41→12:31)
[2023-07-05 08:00] VITALS: BP 110/59; PULSE 54; RESP 16; TEMP 36.5; O2SAT 96
[2023-07-05] MEDS: Baclofen 10 MG TABLET PO ×3 (08:49→21:25)
[2023-07-05] MEDS: Sennosides 8.6 MG TABLET PO (08:49)
[2023-07-05] MEDS: busPIRone HCl 10 MG TABLET PO ×3 (08:49→21:25)
[2023-07-05 12:25] VITALS: BP 144/59; PULSE 58
[2023-07-05] MEDS: Aspirin 81 MG TAB.CHEW PO (12:25)
[2023-07-05] MEDS: PARoxetine HCL 30 MG TABLET PO (12:25)
[2023-07-05] MEDS: Metoprolol Tartrate 25 MG TABLET PO (12:25)
--- NOTE | 2023-07-05 15:30 | HO.PSYCHPN ---
Subjective Subjective Date of Service: 07/05/23 Reason For Visit: SI Interim History: found lying in bed resting comfortably. c/o right sided pain only - chronic. no other requests or complaints. per staff, no events overnight. c/o chronic right-sided pain. Mental Status Exam Mental Status Exam Patient Appearance: Appropriate (On hospital gowns) Patient Orientation: Person Level of Consciousness: Awake and Disoriented Patient Behavior: Guarded and Passive Mood Description: Withdrawn and Depressed Affect Description: Blunted Patient Cognition Impaired: Yes Ability to Follow Directions: Fair Speech Pattern: Clear Hallucinations: None Delusions: Ideas of Reference Thought Process: Distracted and Slowed Thinking Thought Content: positive for [place], positive for Poverty of Content and positive for Thought Blocking Judgement: Poor Diagnostics Vital Signs (24Hr): Vital Signs - 24 hr 07/04/23 20:00 07/04/23 21:15 07/05/23 08:00 Temperature 97.5 F 97.7 F Pulse Rate 62 62 54 Respiratory Rate 18 16 Blood Pressure 141/65 H 141/65 H 110/59 L Pulse Oximetry 96 96 Oxygen Delivery Method Room Air Room Air 07/05/23 12:25 Temperature Pulse Rate 58 Respiratory Rate Blood Pressure 144/59 H Pulse Oximetry Oxygen Delivery Method BMI result Body Mass Index 19.9 Labs 07/01/23 15:45 07/03/23 11:02 Medications Medications Current Medications Acetaminophen (Acetaminophen 325 Mg Tablet) 650 mg PO BEDTIME [facility] Last Admin: 07/04/23 21:14 Dose: 650 mg Acetaminophen (Acetaminophen 325 Mg Tablet) 650 mg PO TID PRN PRN Reason: Pain Last Admin: 07/03/23 08:50 Dose: 650 mg Al Hydroxide/Mg Hydroxide (Magnesium Hydrox/Alum Hydrox 30 Ml Oral.Susp) 30 ml PO Q6H PRN PRN Reason: Heartburn/Nausea Aspirin (Aspirin 81 Mg Tab.Chew) 81 mg PO DAILY@1200 [facility] Last Admin: 07/05/23 12:25 Dose: 81 mg Baclofen (Baclofen 10 Mg Tablet) 10 mg PO TID [facility] Last Admin: 07/05/23 14:15 Dose: 10 mg Buspirone HCl (Buspirone Hcl 10 Mg Tablet) 10 mg PO TID [facility] Last Admin: 07/05/23 14:15 Dose: 10 mg Gabapentin (Gabapentin 300 Mg Capsule) 900 mg PO BEDTIME [facility] Last Admin: 07/04/23 21:13 Dose: 900 mg Gabapentin (Gabapentin 400 Mg Capsule) 400 mg PO BID@0500,1300 [facility] Last Admin: 07/05/23 12:31 Dose: 400 mg Loratadine (Loratadine 10 Mg Tablet) 10 mg PO DAILY PRN PRN Reason: Allergy Symptoms Magnesium Hydroxide (Milk Of Magnesia 30 Ml Oral.Susp) 30 ml PO DAILY PRN PRN Reason: Constipation Magnesium Oxide (Magnesium Oxide 400 Mg Tablet) 400 mg PO BEDTIME [facility] Last Admin: 07/04/23 21:15 Dose: 400 mg Melatonin (Melatonin 3 Mg Tablet) 9 mg PO BEDTIME [facility] Last Admin: 07/04/23 21:15 Dose: 9 mg Metoprolol Tartrate (Metoprolol Tartrate 25 Mg Tablet) 25 mg PO BID@1200,2100 [facility]; Protocol Last Admin: 07/05/23 12:25 Dose: 25 mg Mirtazapine (Mirtazapine 30 Mg Tablet) 30 mg PO BEDTIME [facility] Last Admin: 07/04/23 21:16 Dose: 30 mg Olanzapine (Olanzapine 2.5 Mg Tablet) 2.5 mg PO BEDTIME [facility] Last Admin: 07/04/23 21:15 Dose: 2.5 mg Ondansetron HCl (Ondansetron Odt 4 Mg Tab.Rapdis) 4 mg TRANSLINGU Q6H PRN PRN Reason: Nausea And Vomiting Paroxetine HCl (Paroxetine Hcl 30 Mg Tablet) 30 mg PO DAILY@1200 [facility] Last Admin: 07/05/23 12:25 Dose: 30 mg Pravastatin Sodium (Pravastatin Sodium 10 Mg Tablet) 10 mg PO BEDTIME [facility] Last Admin: 07/04/23 21:16 Dose: 10 mg Pravastatin Sodium (Pravastatin Sodium 20 Mg Tablet) 20 mg PO BEDTIME [facility] Last Admin: 07/04/23 21:15 Dose: 20 mg Rivaroxaban (Rivaroxaban 20 Mg Tablet) 20 mg PO DAILY@1630 [facility] Last Admin: 07/04/23 16:14 Dose: 20 mg Senna (Sennosides 8.6 Mg Tablet) 8.6 mg PO DAILY [facility] Last Admin: 07/05/23 08:49 Dose: 8.6 mg Trazodone HCl (Trazodone Hcl 25 Mg Halftab) 25 mg PO BEDTIME [facility] Last Admin: 07/04/23 21:16 Dose: 25 mg Trazodone HCl (Trazodone Hcl 50 Mg Tablet) 50 mg PO BEDTIME MRX1 PRN PRN Reason: Insomnia Allergies Allergies Allergy/AdvReac Type Severity Reaction Status Date / Time alprazolam [Xanax] Allergy Unknown Unknown Verified 07/01/23 13:31 penicillin V Allergy Unknown Unknown Verified 07/01/23 13:31 Penicillins [PENICILLINS] Allergy Unknown HIVES AND Verified 07/01/23 13:31 SOB aspirin AdvReac Unknown N/V, Verified 07/01/23 13:31 BURNING diflunisal [DIFLUNISAL] AdvReac Unknown WEAKNESS Verified 07/01/23 13:31 erythromycin base AdvReac Unknown RAPID Verified 07/01/23 13:31 [ERYTHROMYCIN BASE] HEART RATE iodine [IODINE] AdvReac Unknown VOMITING Verified 07/01/23 13:31 Sulfa (Sulfonamide AdvReac Unknown NAUSEA & Verified 07/01/23 13:31 Antibiotics) VOMITING [SULFA (SULFONAMIDE ANTIBIOTICS)] Contrast Allergy PreMed Pack Allergy Unknown Unknown Uncoded 07/01/23 13:31 Darvocet A500 Allergy Unknown Unknown Uncoded 07/01/23 13:31 Seafood Allergy Unknown Unknown Uncoded 07/01/23 13:31 Sulfa Allergy Unknown Unknown Uncoded 07/01/23 13:31 From DARVON AdvReac Unknown HALLUCINATI Uncoded 07/01/23 13:31 ONS SEAFOOD AdvReac Unknown N/V Uncoded 07/01/23 13:31 Assessment & Plan Assessment & Plan (1) Depressive disorder: Status: Acute Code(s): F32.A - Depression, unspecified (2) Dementia: Status: Acute Code(s): F03.90 - Unspecified dementia, unspecified severity, without behavioral disturbance, psychotic disturbance, mood disturbance, and anxiety Plan The patient is an elderly female with a past history of CVA with right hemiparesis, resident of a intermediate facility referred to the emergency room for suicidal ideation in the context of worsening depressive symptoms such as poor sleep and lack of energy. On the intake interview the patient was irritable and paranoid. Plan 1. Gather more collateral information. The patient is a very poor historian unable to provide more details. 2. Increase Remeron up to 30 mg p.o. q.h.s. since the patient is complaining of insomnia. 3. Continue with Paxil 30 mg p.o. at 12:00 o'clock. 4. Continue with medical treatment. 5. Lab work for tomorrow morning reassessment with results. 6. 5 minutes check since the patient is unable to contract for safety at this moment. 7. Start a very low dose of Zyprexa as a mood stabilizer. 8. Increased melatonin up to 9 mg p.o. q.h.s. to target insomnia. Reason for continued inpatient stay Substantial Risk for: inability to function Time Spent With Patient Time: Total time managing care of this patient today ____ minutes.
[2023-07-05] MEDS: Rivaroxaban 20 MG TABLET PO (16:19)
[2023-07-05 20:00] VITALS: BP 100/54; PULSE 66; RESP 16; TEMP 36.3; O2SAT 96
[2023-07-05] MEDS: OLANZapine 2.5 MG TABLET PO (21:20)
[2023-07-05] MEDS: Acetaminophen 325 MG TABLET 650 MG PO (21:24)
[2023-07-05] MEDS: Melatonin 3 MG TABLET 9 MG PO (21:25)
[2023-07-05] MEDS: Mirtazapine 30 MG TABLET PO (21:25)
[2023-07-05] MEDS: Magnesium Oxide 400 MG TABLET PO (21:25)
[2023-07-05] MEDS: Pravastatin Sodium 10 MG TABLET PO (21:25)
[2023-07-05] MEDS: traZODone HCL 25 MG HALFTAB PO (21:25)
[2023-07-05] MEDS: Gabapentin 300 MG CAPSULE 900 MG PO (21:25)
[2023-07-05] MEDS: Pravastatin Sodium 20 MG TABLET PO (21:25)
[2023-07-05 22:35] VITALS: BP 100/54; PULSE 66
[2023-07-06] MEDS: Gabapentin 400 MG CAPSULE PO ×2 (06:15→12:14)
[2023-07-06 08:11] VITALS: BP 109/55; PULSE 61; RESP 16; TEMP 36.1; O2SAT 98
[2023-07-06] MEDS: Sennosides 8.6 MG TABLET PO (08:15)
[2023-07-06] MEDS: busPIRone HCl 10 MG TABLET PO ×3 (08:15→20:26)
[2023-07-06] MEDS: Baclofen 10 MG TABLET PO ×3 (08:16→20:26)
[2023-07-06 12:14] VITALS: BP 137/63; PULSE 65
[2023-07-06] MEDS: Aspirin 81 MG TAB.CHEW PO (12:14)
[2023-07-06] MEDS: Metoprolol Tartrate 25 MG TABLET PO (12:14)
[2023-07-06] MEDS: PARoxetine HCL 30 MG TABLET PO (12:14)
--- NOTE | 2023-07-06 14:37 | HO.PSYCHPN ---
Subjective Subjective Date of Service: 07/06/23 Reason For Visit: SI Subjective Notes: Conditional Voluntary Interim History: Patient depressed withdrawn gets frustrated at times Mental Status Exam Mental Status Exam Patient Appearance: Appropriate (On hospital gowns) Patient Orientation: Person Level of Consciousness: Awake and Disoriented Patient Behavior: Guarded and Passive Mood Description: Withdrawn and Depressed Affect Description: Blunted Patient Cognition Impaired: Yes Ability to Follow Directions: Fair Speech Pattern: Clear Hallucinations: None Delusions: Ideas of Reference Thought Process: Distracted and Slowed Thinking Thought Content: positive for [place], positive for Poverty of Content and positive for Thought Blocking Judgement: Poor Diagnostics Vital Signs (24Hr): Vital Signs - 24 hr 07/05/23 20:00 07/05/23 22:35 07/06/23 08:11 Temperature 97.3 F 97 F Pulse Rate 66 66 61 Respiratory Rate 16 16 Blood Pressure 100/54 L 100/54 L 109/55 L Pulse Oximetry 96 98 Oxygen Delivery Method Room Air Room Air 07/06/23 12:14 Temperature Pulse Rate 65 Respiratory Rate Blood Pressure 137/63 Pulse Oximetry Oxygen Delivery Method BMI result Body Mass Index 19.9 Labs 07/01/23 15:45 07/03/23 11:02 Medications Medications Current Medications Acetaminophen (Acetaminophen 325 Mg Tablet) 650 mg PO BEDTIME [facility] Last Admin: 07/05/23 21:24 Dose: 650 mg Acetaminophen (Acetaminophen 325 Mg Tablet) 650 mg PO TID PRN PRN Reason: Pain Last Admin: 07/03/23 08:50 Dose: 650 mg Al Hydroxide/Mg Hydroxide (Magnesium Hydrox/Alum Hydrox 30 Ml Oral.Susp) 30 ml PO Q6H PRN PRN Reason: Heartburn/Nausea Aspirin (Aspirin 81 Mg Tab.Chew) 81 mg PO DAILY@1200 [facility] Last Admin: 07/06/23 12:14 Dose: 81 mg Baclofen (Baclofen 10 Mg Tablet) 10 mg PO TID [facility] Last Admin: 07/06/23 08:16 Dose: 10 mg Buspirone HCl (Buspirone Hcl 10 Mg Tablet) 10 mg PO TID [facility] Last Admin: 07/06/23 08:15 Dose: 10 mg Gabapentin (Gabapentin 300 Mg Capsule) 900 mg PO BEDTIME [facility] Last Admin: 07/05/23 21:25 Dose: 900 mg Gabapentin (Gabapentin 400 Mg Capsule) 400 mg PO BID@0500,1300 [facility] Last Admin: 07/06/23 12:14 Dose: 400 mg Loratadine (Loratadine 10 Mg Tablet) 10 mg PO DAILY PRN PRN Reason: Allergy Symptoms Magnesium Hydroxide (Milk Of Magnesia 30 Ml Oral.Susp) 30 ml PO DAILY PRN PRN Reason: Constipation Magnesium Oxide (Magnesium Oxide 400 Mg Tablet) 400 mg PO BEDTIME [facility] Last Admin: 07/05/23 21:25 Dose: 400 mg Melatonin (Melatonin 3 Mg Tablet) 9 mg PO BEDTIME [facility] Last Admin: 07/05/23 21:25 Dose: 9 mg Metoprolol Tartrate (Metoprolol Tartrate 25 Mg Tablet) 25 mg PO BID@1200,2100 [facility]; Protocol Last Admin: 07/06/23 12:14 Dose: 25 mg Mirtazapine (Mirtazapine 30 Mg Tablet) 30 mg PO BEDTIME [facility] Last Admin: 07/05/23 21:25 Dose: 30 mg Olanzapine (Olanzapine 2.5 Mg Tablet) 2.5 mg PO BEDTIME [facility] Last Admin: 07/05/23 21:20 Dose: 2.5 mg Ondansetron HCl (Ondansetron Odt 4 Mg Tab.Rapdis) 4 mg TRANSLINGU Q6H PRN PRN Reason: Nausea And Vomiting Paroxetine HCl (Paroxetine Hcl 30 Mg Tablet) 30 mg PO DAILY@1200 [facility] Last Admin: 07/06/23 12:14 Dose: 30 mg Pravastatin Sodium (Pravastatin Sodium 10 Mg Tablet) 10 mg PO BEDTIME [facility] Last Admin: 07/05/23 21:25 Dose: 10 mg Pravastatin Sodium (Pravastatin Sodium 20 Mg Tablet) 20 mg PO BEDTIME [facility] Last Admin: 07/05/23 21:25 Dose: 20 mg Rivaroxaban (Rivaroxaban 20 Mg Tablet) 20 mg PO DAILY@1630 [facility] Last Admin: 07/05/23 16:19 Dose: 20 mg Senna (Sennosides 8.6 Mg Tablet) 8.6 mg PO DAILY [facility] Last Admin: 07/06/23 08:15 Dose: 8.6 mg Trazodone HCl (Trazodone Hcl 25 Mg Halftab) 25 mg PO BEDTIME [facility] Last Admin: 07/05/23 21:25 Dose: 25 mg Trazodone HCl (Trazodone Hcl 50 Mg Tablet) 50 mg PO BEDTIME MRX1 PRN PRN Reason: Insomnia Allergies Allergies Allergy/AdvReac Type Severity Reaction Status Date / Time alprazolam [Xanax] Allergy Unknown Unknown Verified 07/01/23 13:31 penicillin V Allergy Unknown Unknown Verified 07/01/23 13:31 Penicillins [PENICILLINS] Allergy Unknown HIVES AND Verified 07/01/23 13:31 SOB aspirin AdvReac Unknown N/V, Verified 07/01/23 13:31 BURNING diflunisal [DIFLUNISAL] AdvReac Unknown WEAKNESS Verified 07/01/23 13:31 erythromycin base AdvReac Unknown RAPID Verified 07/01/23 13:31 [ERYTHROMYCIN BASE] HEART RATE iodine [IODINE] AdvReac Unknown VOMITING Verified 07/01/23 13:31 Sulfa (Sulfonamide AdvReac Unknown NAUSEA & Verified 07/01/23 13:31 Antibiotics) VOMITING [SULFA (SULFONAMIDE ANTIBIOTICS)] Contrast Allergy PreMed Pack Allergy Unknown Unknown Uncoded 07/01/23 13:31 Darvocet A500 Allergy Unknown Unknown Uncoded 07/01/23 13:31 Seafood Allergy Unknown Unknown Uncoded 07/01/23 13:31 Sulfa Allergy Unknown Unknown Uncoded 07/01/23 13:31 From DARVON AdvReac Unknown HALLUCINATI Uncoded 07/01/23 13:31 ONS SEAFOOD AdvReac Unknown N/V Uncoded 07/01/23 13:31 Assessment & Plan Assessment & Plan (1) Depressive disorder: Status: Acute Code(s): F32.A - Depression, unspecified (2) Dementia: Status: Acute Code(s): F03.90 - Unspecified dementia, unspecified severity, without behavioral disturbance, psychotic disturbance, mood disturbance, and anxiety Plan The patient is an elderly female with a past history of CVA with right hemiparesis, resident of a long-term facility referred to the emergency room for suicidal ideation in the context of worsening depressive symptoms such as poor sleep and lack of energy. On the intake interview the patient was irritable and paranoid. Plan 1. Gather more collateral information. The patient is a very poor historian unable to provide more details. 2. Increase Remeron up to 30 mg p.o. q.h.s. since the patient is complaining of insomnia. 3. Continue with Paxil 30 mg p.o. at 12:00 o'clock. 4. Continue with medical treatment. 5. Lab work for tomorrow morning reassessment with results. 6. 5 minutes check since the patient is unable to contract for safety at this moment. 7. Start a very low dose of Zyprexa as a mood stabilizer. 8. Increased melatonin up to 9 mg p.o. q.h.s. to target insomnia. 07/06/2023 Continue plan of care monitor response to medication Reason for continued inpatient stay Substantial Risk for: harm to self, rapid decompensation and med/psych decompensation Time Spent With Patient Time: Total time managing care of this patient today ____ minutes.
[2023-07-06] MEDS: Rivaroxaban 20 MG TABLET PO (16:48)
[2023-07-06 20:00] VITALS: BP 141/65; PULSE 57; RESP 16; TEMP 36.2; O2SAT 96
[2023-07-06] MEDS: Magnesium Oxide 400 MG TABLET PO (20:25)
[2023-07-06] MEDS: Gabapentin 300 MG CAPSULE 900 MG PO (20:25)
[2023-07-06] MEDS: traZODone HCL 25 MG HALFTAB PO (20:26)
[2023-07-06] MEDS: Mirtazapine 30 MG TABLET PO (20:26)
[2023-07-06] MEDS: Pravastatin Sodium 20 MG TABLET PO (20:27)
[2023-07-06] MEDS: Pravastatin Sodium 10 MG TABLET PO (20:27)
[2023-07-06] MEDS: Acetaminophen 325 MG TABLET 650 MG PO (20:27)
[2023-07-06 20:34] VITALS: BP 141/65; PULSE 57
[2023-07-06] MEDS: Melatonin 3 MG TABLET 9 MG PO (20:35)
[2023-07-06] MEDS: OLANZapine 2.5 MG TABLET PO (20:35)
[2023-07-07] MEDS: Gabapentin 400 MG CAPSULE PO ×2 (06:14→12:32)
[2023-07-07 08:00] VITALS: BP 137/62; PULSE 65; RESP 16; TEMP 36.1; O2SAT 97
[2023-07-07] MEDS: Sennosides 8.6 MG TABLET PO (09:00)
[2023-07-07] MEDS: busPIRone HCl 10 MG TABLET PO ×3 (09:00→20:57)
[2023-07-07] MEDS: Baclofen 10 MG TABLET PO ×3 (09:00→20:57)
--- NOTE | 2023-07-07 10:51 | HO.PSYCHPN ---
Subjective Subjective Date of Service: 07/07/23 Reason For Visit: SI Subjective Notes: Conditional Voluntary Interim History: With her expressive aphasia which is quite frustrating to her. She does say feels somewhat less depressed states she has had speech therapy Patient depressed withdrawn gets frustrated at times Mental Status Exam Mental Status Exam Patient Appearance: Appropriate (On hospital gowns) Patient Orientation: Person Level of Consciousness: Awake and Disoriented Patient Behavior: Guarded and Passive Mood Description: Withdrawn and Depressed Affect Description: Blunted Patient Cognition Impaired: Yes Ability to Follow Directions: Fair Speech Pattern: Clear Hallucinations: None Delusions: Ideas of Reference Thought Process: Distracted and Slowed Thinking Thought Content: positive for [place], positive for Poverty of Content and positive for Thought Blocking Judgement: Poor Diagnostics Vital Signs (24Hr): Vital Signs - 24 hr 07/06/23 12:14 07/06/23 20:00 07/06/23 20:34 Temperature 97.2 F Pulse Rate 65 57 57 Respiratory Rate 16 Blood Pressure 137/63 141/65 H 141/65 H Pulse Oximetry 96 Oxygen Delivery Method Room Air 07/07/23 08:00 Temperature 96.9 F Pulse Rate 65 Respiratory Rate 16 Blood Pressure 137/62 Pulse Oximetry 97 Oxygen Delivery Method Room Air BMI result Body Mass Index 19.9 Labs 07/01/23 15:45 07/03/23 11:02 Medications Medications Current Medications Acetaminophen (Acetaminophen 325 Mg Tablet) 650 mg PO BEDTIME [facility] Last Admin: 07/06/23 20:27 Dose: 650 mg Acetaminophen (Acetaminophen 325 Mg Tablet) 650 mg PO TID PRN PRN Reason: Pain Last Admin: 07/03/23 08:50 Dose: 650 mg Al Hydroxide/Mg Hydroxide (Magnesium Hydrox/Alum Hydrox 30 Ml Oral.Susp) 30 ml PO Q6H PRN PRN Reason: Heartburn/Nausea Aspirin (Aspirin 81 Mg Tab.Chew) 81 mg PO DAILY@1200 [facility] Last Admin: 07/06/23 12:14 Dose: 81 mg Baclofen (Baclofen 10 Mg Tablet) 10 mg PO TID [facility] Last Admin: 07/07/23 09:00 Dose: 10 mg Buspirone HCl (Buspirone Hcl 10 Mg Tablet) 10 mg PO TID [facility] Last Admin: 07/07/23 09:00 Dose: 10 mg Gabapentin (Gabapentin 300 Mg Capsule) 900 mg PO BEDTIME [facility] Last Admin: 07/06/23 20:25 Dose: 900 mg Gabapentin (Gabapentin 400 Mg Capsule) 400 mg PO BID@0500,1300 [facility] Last Admin: 07/07/23 06:14 Dose: 400 mg Loratadine (Loratadine 10 Mg Tablet) 10 mg PO DAILY PRN PRN Reason: Allergy Symptoms Magnesium Hydroxide (Milk Of Magnesia 30 Ml Oral.Susp) 30 ml PO DAILY PRN PRN Reason: Constipation Magnesium Oxide (Magnesium Oxide 400 Mg Tablet) 400 mg PO BEDTIME [facility] Last Admin: 07/06/23 20:25 Dose: 400 mg Melatonin (Melatonin 3 Mg Tablet) 9 mg PO BEDTIME [facility] Last Admin: 07/06/23 20:35 Dose: 9 mg Metoprolol Tartrate (Metoprolol Tartrate 25 Mg Tablet) 25 mg PO BID@1200,2100 [facility]; Protocol Last Admin: 07/06/23 20:34 Dose: Not Given Mirtazapine (Mirtazapine 30 Mg Tablet) 30 mg PO BEDTIME [facility] Last Admin: 07/06/23 20:26 Dose: 30 mg Olanzapine (Olanzapine 2.5 Mg Tablet) 2.5 mg PO BEDTIME [facility] Last Admin: 07/06/23 20:35 Dose: 2.5 mg Ondansetron HCl (Ondansetron Odt 4 Mg Tab.Rapdis) 4 mg TRANSLINGU Q6H PRN PRN Reason: Nausea And Vomiting Paroxetine HCl (Paroxetine Hcl 30 Mg Tablet) 30 mg PO DAILY@1200 [facility] Last Admin: 07/06/23 12:14 Dose: 30 mg Pravastatin Sodium (Pravastatin Sodium 10 Mg Tablet) 10 mg PO BEDTIME [facility] Last Admin: 07/06/23 20:27 Dose: 10 mg Pravastatin Sodium (Pravastatin Sodium 20 Mg Tablet) 20 mg PO BEDTIME [facility] Last Admin: 07/06/23 20:27 Dose: 20 mg Rivaroxaban (Rivaroxaban 20 Mg Tablet) 20 mg PO DAILY@1630 [facility] Last Admin: 07/06/23 16:48 Dose: 20 mg Senna (Sennosides 8.6 Mg Tablet) 8.6 mg PO DAILY [facility] Last Admin: 07/07/23 09:00 Dose: 8.6 mg Trazodone HCl (Trazodone Hcl 25 Mg Halftab) 25 mg PO BEDTIME [facility] Last Admin: 07/06/23 20:26 Dose: 25 mg Trazodone HCl (Trazodone Hcl 50 Mg Tablet) 50 mg PO BEDTIME MRX1 PRN PRN Reason: Insomnia Allergies Allergies Allergy/AdvReac Type Severity Reaction Status Date / Time alprazolam [Xanax] Allergy Unknown Unknown Verified 07/01/23 13:31 penicillin V Allergy Unknown Unknown Verified 07/01/23 13:31 Penicillins [PENICILLINS] Allergy Unknown HIVES AND Verified 07/01/23 13:31 SOB aspirin AdvReac Unknown N/V, Verified 07/01/23 13:31 BURNING diflunisal [DIFLUNISAL] AdvReac Unknown WEAKNESS Verified 07/01/23 13:31 erythromycin base AdvReac Unknown RAPID Verified 07/01/23 13:31 [ERYTHROMYCIN BASE] HEART RATE iodine [IODINE] AdvReac Unknown VOMITING Verified 07/01/23 13:31 Sulfa (Sulfonamide AdvReac Unknown NAUSEA & Verified 07/01/23 13:31 Antibiotics) VOMITING [SULFA (SULFONAMIDE ANTIBIOTICS)] Contrast Allergy PreMed Pack Allergy Unknown Unknown Uncoded 07/01/23 13:31 Darvocet A500 Allergy Unknown Unknown Uncoded 07/01/23 13:31 Seafood Allergy Unknown Unknown Uncoded 07/01/23 13:31 Sulfa Allergy Unknown Unknown Uncoded 07/01/23 13:31 From DARVON AdvReac Unknown HALLUCINATI Uncoded 07/01/23 13:31 ONS SEAFOOD AdvReac Unknown N/V Uncoded 07/01/23 13:31 Assessment & Plan Assessment & Plan (1) Depressive disorder: Status: Acute Code(s): F32.A - Depression, unspecified (2) Dementia: Status: Acute Code(s): F03.90 - Unspecified dementia, unspecified severity, without behavioral disturbance, psychotic disturbance, mood disturbance, and anxiety Plan The patient is an elderly female with a past history of CVA with right hemiparesis, resident of a [facility] referred to the emergency room for suicidal ideation in the context of worsening depressive symptoms such as poor sleep and lack of energy. On the intake interview the patient was irritable and paranoid. Plan 1. Gather more collateral information. The patient is a very poor historian unable to provide more details. 2. Increase Remeron up to 30 mg p.o. q.h.s. since the patient is complaining of insomnia. 3. Continue with Paxil 30 mg p.o. at 12:00 o'clock. 4. Continue with medical treatment. 5. Lab work for tomorrow morning reassessment with results. 6. 5 minutes check since the patient is unable to contract for safety at this moment. 7. Start a very low dose of Zyprexa as a mood stabilizer. 8. Increased melatonin up to 9 mg p.o. q.h.s. to target insomnia. 07/06/2023 Continue plan of care monitor response to medication 07/07/2023 Continue plan of care patient states she is feeling better she is on Paxil Remeron olanzapine BuSpar less depressed Reason for continued inpatient stay Substantial Risk for: harm to self, rapid decompensation and med/psych decompensation Time Spent With Patient Time: Total time managing care of this patient today ____ minutes.
[2023-07-07 11:55] VITALS: BP 143/67; PULSE 62
[2023-07-07] MEDS: Aspirin 81 MG TAB.CHEW PO (11:55)
[2023-07-07] MEDS: PARoxetine HCL 30 MG TABLET PO (11:55)
[2023-07-07] MEDS: Metoprolol Tartrate 25 MG TABLET PO ×2 (11:55→20:57)
[2023-07-07] MEDS: Rivaroxaban 20 MG TABLET PO (17:10)
[2023-07-07 20:00] VITALS: BP 134/64; PULSE 62; RESP 18; TEMP 36.6; O2SAT 99
[2023-07-07] MEDS: Gabapentin 300 MG CAPSULE 900 MG PO (20:56)
[2023-07-07] MEDS: Mirtazapine 30 MG TABLET PO (20:56)
[2023-07-07] MEDS: Magnesium Oxide 400 MG TABLET PO (20:56)
[2023-07-07] MEDS: Acetaminophen 325 MG TABLET 650 MG PO (20:56)
[2023-07-07 20:57] VITALS: BP 134/64; PULSE 62
[2023-07-07] MEDS: traZODone HCL 25 MG HALFTAB PO (20:57)
[2023-07-07] MEDS: Pravastatin Sodium 10 MG TABLET PO (20:57)
[2023-07-07] MEDS: OLANZapine 2.5 MG TABLET PO (20:57)
[2023-07-07] MEDS: Melatonin 3 MG TABLET 9 MG PO (20:57)
[2023-07-07] MEDS: Pravastatin Sodium 20 MG TABLET PO (20:58)
[2023-07-08] MEDS: Gabapentin 400 MG CAPSULE PO ×2 (05:34→12:56)
[2023-07-08 08:00] VITALS: BP 160/72; PULSE 55; RESP 16; TEMP 36.5; O2SAT 96
[2023-07-08] MEDS: busPIRone HCl 10 MG TABLET PO ×3 (08:21→20:42)
[2023-07-08] MEDS: Baclofen 10 MG TABLET PO ×3 (08:21→20:44)
[2023-07-08] MEDS: Sennosides 8.6 MG TABLET PO (08:21)
[2023-07-08 12:56] VITALS: BP 98/68; PULSE 61
[2023-07-08] MEDS: PARoxetine HCL 30 MG TABLET PO (12:56)
[2023-07-08] MEDS: Aspirin 81 MG TAB.CHEW PO (12:56)
[2023-07-08] MEDS: Metoprolol Tartrate 25 MG TABLET PO ×2 (12:56→20:42)
--- NOTE | 2023-07-08 15:00 | P.PNPSI_ITS ---
Subjective Subjective Date of Service: 07/08/23 Reason For Visit: SI Subjective Notes: Conditional Voluntary Interim History: The nursing staff reported the patient had been pleasant and medication compliant. 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 She had having symptoms pulses stroke and she had been for 5 years in the residential. On interview the patient feels frustrated since she has expressive aphasia but was able to complain of depression. We have already Increased her medications and we will monitor her improvement. Mental Status Exam Mental Status Exam Patient Appearance: Appropriate Patient Orientation: Person and Situation Level of Consciousness: Awake and Appropriate Patient Behavior: Guarded and Passive Mood Description: Withdrawn Affect Description: Constricted Patient Cognition Impaired: Yes Ability to Follow Directions: Good Speech Pattern: Poor Articulation Hallucinations: None Delusions: Not Present Thought Content: positive for [place], positive for Poverty of Content and positive for Thought Blocking Judgement: Fair Diagnostics Vital Signs (24Hr): Vital Signs - 24 hr 07/07/23 20:00 07/07/23 20:57 07/08/23 08:00 Temperature 97.8 F 97.7 F Pulse Rate 62 62 55 Respiratory Rate 18 16 Blood Pressure 134/64 134/64 160/72 H Pulse Oximetry 99 96 Oxygen Delivery Method Room Air Room Air 07/08/23 12:56 Temperature Pulse Rate 61 Respiratory Rate Blood Pressure 98/68 Pulse Oximetry Oxygen Delivery Method BMI result Body Mass Index 19.9 Labs 07/01/23 15:45 07/03/23 11:02 Medications Medications Current Medications Acetaminophen (Acetaminophen 325 Mg Tablet) 650 mg PO BEDTIME [facility] Last Admin: 07/07/23 20:56 Dose: 650 mg Acetaminophen (Acetaminophen 325 Mg Tablet) 650 mg PO TID PRN PRN Reason: Pain Last Admin: 07/03/23 08:50 Dose: 650 mg Al Hydroxide/Mg Hydroxide (Magnesium Hydrox/Alum Hydrox 30 Ml Oral.Susp) 30 ml PO Q6H PRN PRN Reason: Heartburn/Nausea Aspirin (Aspirin 81 Mg Tab.Chew) 81 mg PO DAILY@1200 [facility] Last Admin: 07/08/23 12:56 Dose: 81 mg Baclofen (Baclofen 10 Mg Tablet) 10 mg PO TID [facility] Last Admin: 07/08/23 14:36 Dose: 10 mg Buspirone HCl (Buspirone Hcl 10 Mg Tablet) 10 mg PO TID [facility] Last Admin: 07/08/23 14:36 Dose: 10 mg Gabapentin (Gabapentin 300 Mg Capsule) 900 mg PO BEDTIME [facility] Last Admin: 07/07/23 20:56 Dose: 900 mg Gabapentin (Gabapentin 400 Mg Capsule) 400 mg PO BID@0500,1300 [facility] Last Admin: 07/08/23 12:56 Dose: 400 mg Loratadine (Loratadine 10 Mg Tablet) 10 mg PO DAILY PRN PRN Reason: Allergy Symptoms Magnesium Hydroxide (Milk Of Magnesia 30 Ml Oral.Susp) 30 ml PO DAILY PRN PRN Reason: Constipation Magnesium Oxide (Magnesium Oxide 400 Mg Tablet) 400 mg PO BEDTIME [facility] Last Admin: 07/07/23 20:56 Dose: 400 mg Melatonin (Melatonin 3 Mg Tablet) 9 mg PO BEDTIME [facility] Last Admin: 07/07/23 20:57 Dose: 9 mg Metoprolol Tartrate (Metoprolol Tartrate 25 Mg Tablet) 25 mg PO BID@1200,2100 [facility]; Protocol Last Admin: 07/08/23 12:56 Dose: 25 mg Mirtazapine (Mirtazapine 30 Mg Tablet) 30 mg PO BEDTIME [facility] Last Admin: 07/07/23 20:56 Dose: 30 mg Olanzapine (Olanzapine 2.5 Mg Tablet) 2.5 mg PO BEDTIME [facility] Last Admin: 07/07/23 20:57 Dose: 2.5 mg Ondansetron HCl (Ondansetron Odt 4 Mg Tab.Rapdis) 4 mg TRANSLINGU Q6H PRN PRN Reason: Nausea And Vomiting Paroxetine HCl (Paroxetine Hcl 30 Mg Tablet) 30 mg PO DAILY@1200 [facility] Last Admin: 07/08/23 12:56 Dose: 30 mg Pravastatin Sodium (Pravastatin Sodium 10 Mg Tablet) 10 mg PO BEDTIME [facility] Last Admin: 07/07/23 20:57 Dose: 10 mg Pravastatin Sodium (Pravastatin Sodium 20 Mg Tablet) 20 mg PO BEDTIME [facility] Last Admin: 07/07/23 20:58 Dose: 20 mg Rivaroxaban (Rivaroxaban 20 Mg Tablet) 20 mg PO DAILY@1630 [facility] Last Admin: 07/07/23 17:10 Dose: 20 mg Senna (Sennosides 8.6 Mg Tablet) 8.6 mg PO DAILY [facility] Last Admin: 07/08/23 08:21 Dose: 8.6 mg Trazodone HCl (Trazodone Hcl 25 Mg Halftab) 25 mg PO BEDTIME [facility] Last Admin: 07/07/23 20:57 Dose: 25 mg Trazodone HCl (Trazodone Hcl 50 Mg Tablet) 50 mg PO BEDTIME MRX1 PRN PRN Reason: Insomnia Allergies Allergies Allergy/AdvReac Type Severity Reaction Status Date / Time alprazolam [Xanax] Allergy Unknown Unknown Verified 07/01/23 13:31 penicillin V Allergy Unknown Unknown Verified 07/01/23 13:31 Penicillins [PENICILLINS] Allergy Unknown HIVES AND Verified 07/01/23 13:31 SOB aspirin AdvReac Unknown N/V, Verified 07/01/23 13:31 BURNING diflunisal [DIFLUNISAL] AdvReac Unknown WEAKNESS Verified 07/01/23 13:31 erythromycin base AdvReac Unknown RAPID Verified 07/01/23 13:31 [ERYTHROMYCIN BASE] HEART RATE iodine [IODINE] AdvReac Unknown VOMITING Verified 07/01/23 13:31 Sulfa (Sulfonamide AdvReac Unknown NAUSEA & Verified 07/01/23 13:31 Antibiotics) VOMITING [SULFA (SULFONAMIDE ANTIBIOTICS)] Contrast Allergy PreMed Pack Allergy Unknown Unknown Uncoded 07/01/23 13:31 Darvocet A500 Allergy Unknown Unknown Uncoded 07/01/23 13:31 Seafood Allergy Unknown Unknown Uncoded 07/01/23 13:31 Sulfa Allergy Unknown Unknown Uncoded 07/01/23 13:31 From DARVON AdvReac Unknown HALLUCINATI Uncoded 07/01/23 13:31 ONS SEAFOOD AdvReac Unknown N/V Uncoded 07/01/23 13:31 Assessment & Plan Assessment & Plan (1) Depressive disorder: Status: Acute Code(s): F32.A - Depression, unspecified (2) Dementia: Status: Acute Code(s): F03.90 - Unspecified dementia, unspecified severity, without behavioral disturbance, psychotic disturbance, mood disturbance, and anxiety Plan The patient is an elderly female with a past history of CVA with right hemiparesis, resident of a long-term facility referred to the emergency room for suicidal ideation in the context of worsening depressive symptoms such as poor sleep and lack of energy. On the intake interview the patient was irritable and paranoid. Plan 1. Gather more collateral information. The patient is a very poor historian unable to provide more details. 2. Increase Remeron up to 30 mg p.o. q.h.s. since the patient is complaining of insomnia. 3. Continue with Paxil 30 mg p.o. at 12:00 o'clock. 4. Continue with medical treatment. 5. Lab work for tomorrow morning reassessment with results. 6. 5 minutes check since the patient is unable to contract for safety at this moment. 7. Start a very low dose of Zyprexa as a mood stabilizer. 8. Increased melatonin up to 9 mg p.o. q.h.s. to target insomnia. Reason for continued inpatient stay Substantial Risk for: inability to function, rapid decompensation and med/psych decompensation Time Spent With Patient Time: Total time managing care of this patient today __20__ minutes.
[2023-07-08] MEDS: Rivaroxaban 20 MG TABLET PO (16:00)
[2023-07-08 20:00] VITALS: BP 125/56; PULSE 62; RESP 18; TEMP 36.4; O2SAT 96
[2023-07-08 20:42] VITALS: BP 125/56; PULSE 62
[2023-07-08] MEDS: traZODone HCL 25 MG HALFTAB PO (20:42)
[2023-07-08] MEDS: Melatonin 3 MG TABLET 9 MG PO (20:42)
[2023-07-08] MEDS: Magnesium Oxide 400 MG TABLET PO (20:42)
[2023-07-08] MEDS: OLANZapine 2.5 MG TABLET PO (20:42)
[2023-07-08] MEDS: Mirtazapine 30 MG TABLET PO (20:43)
[2023-07-08] MEDS: Acetaminophen 325 MG TABLET 650 MG PO (20:43)
[2023-07-08] MEDS: Gabapentin 300 MG CAPSULE 900 MG PO (20:43)
[2023-07-08] MEDS: Pravastatin Sodium 10 MG TABLET PO (20:43)
[2023-07-08] MEDS: Pravastatin Sodium 20 MG TABLET PO (20:44)
[2023-07-09] MEDS: Gabapentin 400 MG CAPSULE PO ×2 (05:32→14:05)
[2023-07-09 09:30] VITALS: BP 119/59; PULSE 58; RESP 17; TEMP 36.1; O2SAT 97
[2023-07-09] MEDS: Sennosides 8.6 MG TABLET PO (09:45)
[2023-07-09] MEDS: busPIRone HCl 10 MG TABLET PO ×3 (09:45→21:10)
[2023-07-09] MEDS: Baclofen 10 MG TABLET PO ×3 (09:45→21:10)
[2023-07-09] MEDS: Aspirin 81 MG TAB.CHEW PO (11:52)
[2023-07-09] MEDS: PARoxetine HCL 30 MG TABLET PO (11:52)
[2023-07-09 11:53] VITALS: BP 99/49; PULSE 68
[2023-07-09] MEDS: Metoprolol Tartrate 25 MG TABLET PO ×2 (11:53→21:09)
--- NOTE | 2023-07-09 12:40 | HO.PSYCHPN ---
Subjective Subjective Date of Service: 07/09/23 Reason For Visit: SI Subjective Notes: Conditional Voluntary Interim History: The nursing staff reported that she was compliant with treatment, she stated that she didn't like her intermediate but she is aware that she should go back. On interview, she denied active suicidal thoughts. She has expressive aphasia and she is frustrated times. She agreed to increased SSRIs Mental Status Exam Mental Status Exam Patient Appearance: Appropriate Patient Orientation: Person and Situation Level of Consciousness: Awake Patient Behavior: Guarded and Passive Mood Description: Withdrawn Affect Description: Calm Patient Cognition Impaired: Yes Ability to Follow Directions: Good Speech Pattern: Clear Hallucinations: None Delusions: Not Present Thought Process: Evasive and Slowed Thinking Thought Content: positive for [place] and positive for [place] Judgement: Fair Diagnostics Vital Signs (24Hr): Vital Signs - 24 hr 07/08/23 12:56 07/08/23 20:00 07/08/23 20:42 Temperature 97.6 F Pulse Rate 61 62 62 Respiratory Rate 18 Blood Pressure 98/68 125/56 L 125/56 L Pulse Oximetry 96 Oxygen Delivery Method Room Air 07/09/23 09:30 07/09/23 11:53 Temperature 97 F Pulse Rate 58 68 Respiratory Rate 17 Blood Pressure 119/59 L 99/49 L Pulse Oximetry 97 Oxygen Delivery Method Room Air BMI result Body Mass Index 19.9 Labs 07/01/23 15:45 07/03/23 11:02 Medications Medications Current Medications Acetaminophen (Acetaminophen 325 Mg Tablet) 650 mg PO BEDTIME REPLACED BY [facility] Last Admin: 07/08/23 20:43 Dose: 650 mg Acetaminophen (Acetaminophen 325 Mg Tablet) 650 mg PO TID PRN PRN Reason: Pain Last Admin: 07/03/23 08:50 Dose: 650 mg Al Hydroxide/Mg Hydroxide (Magnesium Hydrox/Alum Hydrox 30 Ml Oral.Susp) 30 ml PO Q6H PRN PRN Reason: Heartburn/Nausea Aspirin (Aspirin 81 Mg Tab.Chew) 81 mg PO DAILY@1200 [facility] Last Admin: 07/09/23 11:52 Dose: 81 mg Baclofen (Baclofen 10 Mg Tablet) 10 mg PO TID REPLACED BY [facility] Last Admin: 07/09/23 09:45 Dose: 10 mg Buspirone HCl (Buspirone Hcl 10 Mg Tablet) 10 mg PO TID [facility]PL[facility]ED BY [facility] Last Admin: 07/09/23 09:45 Dose: 10 mg Gabapentin (Gabapentin 300 Mg Capsule) 900 mg PO BEDTIME [facility]PL[facility] Last Admin: 07/08/23 20:43 Dose: 900 mg Gabapentin (Gabapentin 400 Mg Capsule) 400 mg PO BID@0500,1300 [facility] Last Admin: 07/09/23 05:32 Dose: 400 mg Loratadine (Loratadine 10 Mg Tablet) 10 mg PO DAILY PRN PRN Reason: Allergy Symptoms Magnesium Hydroxide (Milk Of Magnesia 30 Ml Oral.Susp) 30 ml PO DAILY PRN PRN Reason: Constipation Magnesium Oxide (Magnesium Oxide 400 Mg Tablet) 400 mg PO BEDTIME [facility] Last Admin: 07/08/23 20:42 Dose: 400 mg Melatonin (Melatonin 3 Mg Tablet) 9 mg PO BEDTIME [facility] Last Admin: 07/08/23 20:42 Dose: 9 mg Metoprolol Tartrate (Metoprolol Tartrate 25 Mg Tablet) 25 mg PO BID@1200,2100 [facility]; Protocol Last Admin: 07/09/23 11:53 Dose: 25 mg Mirtazapine (Mirtazapine 30 Mg Tablet) 30 mg PO BEDTIME [facility] Last Admin: 07/08/23 20:43 Dose: 30 mg Olanzapine (Olanzapine 2.5 Mg Tablet) 2.5 mg PO BEDTIME [facility]PL[facility]ED [facility] Last Admin: 07/08/23 20:42 Dose: 2.5 mg Ondansetron HCl (Ondansetron Odt 4 Mg Tab.Rapdis) 4 mg TRANSLINGU Q6H PRN PRN Reason: Nausea And Vomiting Paroxetine HCl (Paroxetine Hcl 30 Mg Tablet) 30 mg PO DAILY@1200 [facility] Last Admin: 07/09/23 11:52 Dose: 30 mg Pravastatin Sodium (Pravastatin Sodium 10 Mg Tablet) 10 mg PO BEDTIME [facility]PLACED [facility] Last Admin: 07/08/23 20:43 Dose: 10 mg Pravastatin Sodium (Pravastatin Sodium 20 Mg Tablet) 20 mg PO BEDTIME [facility]PL[facility] Last Admin: 07/08/23 20:44 Dose: 20 mg Rivaroxaban (Rivaroxaban 20 Mg Tablet) 20 mg PO DAILY@1630 REPL[facility] Last Admin: 07/08/23 16:00 Dose: 20 mg Senna (Sennosides 8.6 Mg Tablet) 8.6 mg PO DAILY REPLACED BY [facility] Last Admin: 07/09/23 09:45 Dose: 8.6 mg Trazodone HCl (Trazodone Hcl 25 Mg Halftab) 25 mg PO BEDTIME REPLACED BY [facility] Last Admin: 07/08/23 20:42 Dose: 25 mg Trazodone HCl (Trazodone Hcl 50 Mg Tablet) 50 mg PO BEDTIME MRX1 PRN PRN Reason: Insomnia Allergies Allergies Allergy/AdvReac Type Severity Reaction Status Date / Time alprazolam [Xanax] Allergy Unknown Unknown Verified 07/01/23 13:31 penicillin V Allergy Unknown Unknown Verified 07/01/23 13:31 Penicillins [PENICILLINS] Allergy Unknown HIVES AND Verified 07/01/23 13:31 SOB aspirin AdvReac Unknown N/V, Verified 07/01/23 13:31 BURNING diflunisal [DIFLUNISAL] AdvReac Unknown WEAKNESS Verified 07/01/23 13:31 erythromycin base AdvReac Unknown RAPID Verified 07/01/23 13:31 [ERYTHROMYCIN BASE] HEART RATE iodine [IODINE] AdvReac Unknown VOMITING Verified 07/01/23 13:31 Sulfa (Sulfonamide AdvReac Unknown NAUSEA & Verified 07/01/23 13:31 Antibiotics) VOMITING [SULFA (SULFONAMIDE ANTIBIOTICS)] Contrast Allergy PreMed Pack Allergy Unknown Unknown Uncoded 07/01/23 13:31 Darvocet A500 Allergy Unknown Unknown Uncoded 07/01/23 13:31 Seafood Allergy Unknown Unknown Uncoded 07/01/23 13:31 Sulfa Allergy Unknown Unknown Uncoded 07/01/23 13:31 From DARVON AdvReac Unknown HALLUCINATI Uncoded 07/01/23 13:31 ONS SEAFOOD AdvReac Unknown N/V Uncoded 07/01/23 13:31 Assessment & Plan Assessment & Plan (1) Depressive disorder: Status: Acute Code(s): F32.A - Depression, unspecified (2) Dementia: Status: Acute Code(s): F03.90 - Unspecified dementia, unspecified severity, without behavioral disturbance, psychotic disturbance, mood disturbance, and anxiety Plan The patient is an elderly female with a past history of CVA with right hemiparesis, resident of a [facility] facility referred to the emergency room for suicidal ideation in the context of worsening depressive symptoms such as poor sleep and lack of energy. On the intake interview the patient was irritable and paranoid. Plan 1. Gather more collateral information. The patient is a very poor historian unable to provide more details. 2. Increase Remeron up to 30 mg p.o. q.h.s. since the patient is complaining of insomnia. 3. Continue with Paxil 30 mg p.o. at 12:00 o'clock. 4. Continue with medical treatment. 5. Lab work for tomorrow morning reassessment with results. 6. 5 minutes check since the patient is unable to contract for safety at this moment. 7. Start a very low dose of Zyprexa as a mood stabilizer. 8. Increased melatonin up to 9 mg p.o. q.h.s. to target insomnia. 9. Increase Paxil up to 40 mg. Reason for continued inpatient stay Substantial Risk for: inability to function, rapid decompensation and med/psych decompensation Time Spent With Patient Time: Total time managing care of this patient today __20__ minutes.
[2023-07-09] MEDS: Rivaroxaban 20 MG TABLET PO (16:30)
[2023-07-09 20:00] VITALS: BP 124/58; PULSE 61; RESP 18; TEMP 36.6; O2SAT 99
[2023-07-09] MEDS: Acetaminophen 325 MG TABLET 650 MG PO (21:09)
[2023-07-09] MEDS: Pravastatin Sodium 10 MG TABLET PO (21:09)
[2023-07-09] MEDS: Gabapentin 300 MG CAPSULE 900 MG PO (21:09)
[2023-07-09] MEDS: OLANZapine 2.5 MG TABLET PO (21:09)
[2023-07-09] MEDS: traZODone HCL 25 MG HALFTAB PO (21:10)
[2023-07-09] MEDS: Melatonin 3 MG TABLET 9 MG PO (21:10)
[2023-07-09] MEDS: Mirtazapine 30 MG TABLET PO (21:10)
[2023-07-09] MEDS: Magnesium Oxide 400 MG TABLET PO (21:10)
[2023-07-09] MEDS: Pravastatin Sodium 20 MG TABLET PO (21:10)
[2023-07-10 05:38] VITALS: BP 112/53; PULSE 94; RESP 16; O2SAT 92
[2023-07-10 08:00] VITALS: PULSE 53; RESP 17; TEMP 36.6; O2SAT 95
[2023-07-10] MEDS: busPIRone HCl 10 MG TABLET PO ×3 (09:34→21:16)
[2023-07-10] MEDS: Sennosides 8.6 MG TABLET PO (09:34)
[2023-07-10] MEDS: Baclofen 10 MG TABLET PO ×3 (09:34→21:17)
[2023-07-10 10:00] VITALS: BP 114/57; PULSE 65
[2023-07-10] MEDS: Aspirin 81 MG TAB.CHEW PO (11:33)
[2023-07-10] MEDS: PARoxetine HCL 40 MG TABLET PO (11:33)
[2023-07-10 11:41] VITALS: BP 114/57; PULSE 65
[2023-07-10] MEDS: Metoprolol Tartrate 25 MG TABLET PO ×2 (11:41→21:34)
--- NOTE | 2023-07-10 13:01 | HO.PSYCHPN ---
Subjective Subjective Date of Service: 07/10/23 Reason For Visit: SI Subjective Notes: Conditional Voluntary Interim History: The nursing staff reported the patient had been compliant with medication. She is calm depressed but cooperative. The occupational therapist reported that this very difficult to do cognitive assessments since she has expressive aphasia but it is evident that there is impairment on her cognition. On interview the patient denies new symptoms Mental Status Exam Mental Status Exam Patient Appearance: Appropriate Patient Orientation: Person Level of Consciousness: Awake Patient Behavior: Appropriate Mood Description: Constricted Affect Description: Blunted Patient Cognition Impaired: Yes Ability to Follow Directions: Good Speech Pattern: Clear Hallucinations: None Delusions: Not Present Thought Process: Distracted and Slowed Thinking Thought Content: positive for [place] and positive for Poverty of Content Judgement: Fair Diagnostics Vital Signs (24Hr): Vital Signs - 24 hr 07/09/23 20:00 07/10/23 05:38 07/10/23 08:00 Temperature 97.8 F 97.9 F Pulse Rate 61 94 53 Respiratory Rate 18 16 17 Blood Pressure 124/58 L 112/53 L Pulse Oximetry 99 92 95 Oxygen Delivery Method Room Air Room Air Room Air 07/10/23 10:00 07/10/23 11:41 Temperature Pulse Rate 65 65 Respiratory Rate Blood Pressure 114/57 L 114/57 L Pulse Oximetry Oxygen Delivery Method BMI result Body Mass Index 19.9 Labs 07/01/23 15:45 07/03/23 11:02 Medications Medications Current Medications Acetaminophen (Acetaminophen 325 Mg Tablet) 650 mg PO BEDTIME [facility] Last Admin: 07/09/23 21:09 Dose: 650 mg Acetaminophen (Acetaminophen 325 Mg Tablet) 650 mg PO TID PRN PRN Reason: Pain Last Admin: 07/03/23 08:50 Dose: 650 mg Al Hydroxide/Mg Hydroxide (Magnesium Hydrox/Alum Hydrox 30 Ml Oral.Susp) 30 ml PO Q6H PRN PRN Reason: Heartburn/Nausea Aspirin (Aspirin 81 Mg Tab.Chew) 81 mg PO DAILY [facility] Last Admin: 07/10/23 11:33 Dose: 81 mg Baclofen (Baclofen 10 Mg Tablet) 10 mg PO TID [facility] Last Admin: 07/10/23 09:34 Dose: 10 mg Buspirone HCl (Buspirone Hcl 10 Mg Tablet) 10 mg PO TID [facility] Last Admin: 07/10/23 09:34 Dose: 10 mg Gabapentin (Gabapentin 300 Mg Capsule) 900 mg PO BEDTIME [facility] Last Admin: 07/09/23 21:09 Dose: 900 mg Gabapentin (Gabapentin 400 Mg Capsule) 400 mg PO BID@0500,1300 [facility] Last Admin: 07/10/23 05:37 Dose: Not Given Loratadine (Loratadine 10 Mg Tablet) 10 mg PO DAILY PRN PRN Reason: Allergy Symptoms Magnesium Hydroxide (Milk Of Magnesia 30 Ml Oral.Susp) 30 ml PO DAILY PRN PRN Reason: Constipation Magnesium Oxide (Magnesium Oxide 400 Mg Tablet) 400 mg PO BEDTIME [facility] Last Admin: 07/09/23 21:10 Dose: 400 mg Melatonin (Melatonin 3 Mg Tablet) 9 mg PO BEDTIME [facility] Last Admin: 07/09/23 21:10 Dose: 9 mg Metoprolol Tartrate (Metoprolol Tartrate 25 Mg Tablet) 25 mg PO BID [facility]; Protocol Last Admin: 07/10/23 11:41 Dose: 25 mg Mirtazapine (Mirtazapine 30 Mg Tablet) 30 mg PO BEDTIME [facility] Last Admin: 07/09/23 21:10 Dose: 30 mg Olanzapine (Olanzapine 2.5 Mg Tablet) 2.5 mg PO BEDTIME [facility] Last Admin: 07/09/23 21:09 Dose: 2.5 mg Ondansetron HCl (Ondansetron Odt 4 Mg Tab.Rapdis) 4 mg TRANSLINGU Q6H PRN PRN Reason: Nausea And Vomiting Paroxetine HCl (Paroxetine Hcl 40 Mg Tablet) 40 mg PO DAILY [facility] Last Admin: 07/10/23 11:33 Dose: 40 mg Pravastatin Sodium (Pravastatin Sodium 10 Mg Tablet) 10 mg PO BEDTIME [facility] Last Admin: 07/09/23 21:09 Dose: 10 mg Pravastatin Sodium (Pravastatin Sodium 20 Mg Tablet) 20 mg PO BEDTIME [facility] Last Admin: 07/09/23 21:10 Dose: 20 mg Rivaroxaban (Rivaroxaban 20 Mg Tablet) 20 mg PO DAILY@1630 [facility] Last Admin: 07/09/23 16:30 Dose: 20 mg Senna (Sennosides 8.6 Mg Tablet) 8.6 mg PO DAILY [facility] Last Admin: 07/10/23 09:34 Dose: 8.6 mg Trazodone HCl (Trazodone Hcl 25 Mg Halftab) 25 mg PO BEDTIME [facility] Last Admin: 07/09/23 21:10 Dose: 25 mg Trazodone HCl (Trazodone Hcl 50 Mg Tablet) 50 mg PO BEDTIME MRX1 PRN PRN Reason: Insomnia Allergies Allergies Allergy/AdvReac Type Severity Reaction Status Date / Time alprazolam [Xanax] Allergy Unknown Unknown Verified 07/01/23 13:31 penicillin V Allergy Unknown Unknown Verified 07/01/23 13:31 Penicillins [PENICILLINS] Allergy Unknown HIVES AND Verified 07/01/23 13:31 SOB aspirin AdvReac Unknown N/V, Verified 07/01/23 13:31 BURNING diflunisal [DIFLUNISAL] AdvReac Unknown WEAKNESS Verified 07/01/23 13:31 erythromycin base AdvReac Unknown RAPID Verified 07/01/23 13:31 [ERYTHROMYCIN BASE] HEART RATE iodine [IODINE] AdvReac Unknown VOMITING Verified 07/01/23 13:31 Sulfa (Sulfonamide AdvReac Unknown NAUSEA & Verified 07/01/23 13:31 Antibiotics) VOMITING [SULFA (SULFONAMIDE ANTIBIOTICS)] Contrast Allergy PreMed Pack Allergy Unknown Unknown Uncoded 07/01/23 13:31 Darvocet A500 Allergy Unknown Unknown Uncoded 07/01/23 13:31 Seafood Allergy Unknown Unknown Uncoded 07/01/23 13:31 Sulfa Allergy Unknown Unknown Uncoded 07/01/23 13:31 From DARVON AdvReac Unknown HALLUCINATI Uncoded 07/01/23 13:31 ONS SEAFOOD AdvReac Unknown N/V Uncoded 07/01/23 13:31 Assessment & Plan Assessment & Plan (1) Depressive disorder: Status: Acute Code(s): F32.A - Depression, unspecified (2) Dementia: Status: Acute Code(s): F03.90 - Unspecified dementia, unspecified severity, without behavioral disturbance, psychotic disturbance, mood disturbance, and anxiety Plan The patient is an elderly female with a past history of CVA with right hemiparesis, resident of a custodial facility referred to the emergency room for suicidal ideation in the context of worsening depressive symptoms such as poor sleep and lack of energy. On the intake interview the patient was irritable and paranoid. Plan 1. Gather more collateral information. The patient is a very poor historian unable to provide more details. 2. Increase Remeron up to 30 mg p.o. q.h.s. since the patient is complaining of insomnia. 3. Continue with Paxil 30 mg p.o. at 12:00 o'clock. 4. Continue with medical treatment. 5. Lab work for tomorrow morning reassessment with results. 6. 5 minutes check since the patient is unable to contract for safety at this moment. 7. Start a very low dose of Zyprexa as a mood stabilizer. 8. Increased melatonin up to 9 mg p.o. q.h.s. to target insomnia. 9. Increase Paxil up to 40 mg on July 08. Reason for continued inpatient stay Substantial Risk for: inability to function, rapid decompensation and med/psych decompensation Time Spent With Patient Time: Total time managing care of this patient today __20__ minutes.
[2023-07-10] MEDS: Gabapentin 400 MG CAPSULE PO (14:48)
[2023-07-10] MEDS: Rivaroxaban 20 MG TABLET PO (17:06)
[2023-07-10 20:00] VITALS: BP 160/71; PULSE 56; RESP 16; TEMP 35.5; O2SAT 97
[2023-07-10] MEDS: Gabapentin 300 MG CAPSULE 900 MG PO (21:15)
[2023-07-10] MEDS: traZODone HCL 25 MG HALFTAB PO (21:15)
[2023-07-10] MEDS: Acetaminophen 325 MG TABLET 650 MG PO (21:16)
[2023-07-10] MEDS: Mirtazapine 30 MG TABLET PO (21:16)
[2023-07-10] MEDS: Pravastatin Sodium 10 MG TABLET PO (21:16)
[2023-07-10] MEDS: Melatonin 3 MG TABLET 9 MG PO (21:16)
[2023-07-10] MEDS: OLANZapine 2.5 MG TABLET PO (21:16)
[2023-07-10] MEDS: Pravastatin Sodium 20 MG TABLET PO (21:16)
[2023-07-10] MEDS: Magnesium Oxide 400 MG TABLET PO (21:17)
[2023-07-10 21:34] VITALS: BP 160/71; PULSE 55
[2023-07-11] MEDS: Gabapentin 400 MG CAPSULE PO ×2 (06:03→12:14)
[2023-07-11 08:00] VITALS: BP 131/62; PULSE 56; RESP 18; TEMP 36.6; O2SAT 96
[2023-07-11] MEDS: PARoxetine HCL 40 MG TABLET PO (09:13)
[2023-07-11 09:14] VITALS: BP 131/62; PULSE 56
[2023-07-11] MEDS: Aspirin 81 MG TAB.CHEW PO (09:14)
[2023-07-11] MEDS: Metoprolol Tartrate 25 MG TABLET PO ×2 (09:14→20:25)
[2023-07-11] MEDS: busPIRone HCl 10 MG TABLET PO ×3 (09:14→20:24)
[2023-07-11] MEDS: Sennosides 8.6 MG TABLET PO (09:15)
[2023-07-11] MEDS: Baclofen 10 MG TABLET PO ×3 (09:15→20:24)
--- NOTE | 2023-07-11 13:11 | P.PNPSI_ITS ---
Subjective Subjective Date of Service: 07/11/23 Reason For Visit: SI Subjective Notes: Conditional Voluntary Interim History: The nursing staff reported the patient had eating 100% of her meals and she has been medication compliant. The group social worker reported that the [facility] is willing to take her back. On interview the patient denies new symptoms she is frustrated with his expressive aphasia. We recently increased both antidepressants. So far no evidence of mood lability or suicidal ideation. Mental Status Exam Mental Status Exam Patient Appearance: Appropriate Patient Orientation: Person Level of Consciousness: Awake Patient Behavior: Guarded and Passive Mood Description: Withdrawn Affect Description: Constricted Patient Cognition Impaired: Yes Ability to Follow Directions: Good Speech Pattern: Aphasic Hallucinations: None Delusions: Not Present Thought Process: Distracted and Slowed Thinking Thought Content: positive for [place] and positive for Thought Blocking Judgement: Fair Diagnostics Vital Signs (24Hr): Vital Signs - 24 hr 07/10/23 20:00 07/10/23 21:34 07/11/23 08:00 Temperature 96 F L 97.8 F Pulse Rate 56 55 56 Respiratory Rate 16 18 Blood Pressure 160/71 H 160/71 H 131/62 Pulse Oximetry 97 96 Oxygen Delivery Method Room Air Room Air 07/11/23 09:14 Temperature Pulse Rate 56 Respiratory Rate Blood Pressure 131/62 Pulse Oximetry Oxygen Delivery Method BMI result Body Mass Index 19.9 Labs 07/01/23 15:45 07/03/23 11:02 Medications Medications Current Medications Acetaminophen (Acetaminophen 325 Mg Tablet) 650 mg PO BEDTIME [facility] Last Admin: 07/10/23 21:16 Dose: 650 mg Acetaminophen (Acetaminophen 325 Mg Tablet) 650 mg PO TID PRN PRN Reason: Pain Last Admin: 07/03/23 08:50 Dose: 650 mg Al Hydroxide/Mg Hydroxide (Magnesium Hydrox/Alum Hydrox 30 Ml Oral.Susp) 30 ml PO Q6H PRN PRN Reason: Heartburn/Nausea Aspirin (Aspirin 81 Mg Tab.Chew) 81 mg PO DAILY [facility] Last Admin: 07/11/23 09:14 Dose: 81 mg Baclofen (Baclofen 10 Mg Tablet) 10 mg PO TID [facility] Last Admin: 07/11/23 09:15 Dose: 10 mg Buspirone HCl (Buspirone Hcl 10 Mg Tablet) 10 mg PO TID [facility] Last Admin: 07/11/23 09:14 Dose: 10 mg Gabapentin (Gabapentin 300 Mg Capsule) 900 mg PO BEDTIME [facility] Last Admin: 07/10/23 21:15 Dose: 900 mg Gabapentin (Gabapentin 400 Mg Capsule) 400 mg PO BID@0500,1300 [facility] Last Admin: 07/11/23 12:14 Dose: 400 mg Loratadine (Loratadine 10 Mg Tablet) 10 mg PO DAILY PRN PRN Reason: Allergy Symptoms Magnesium Hydroxide (Milk Of Magnesia 30 Ml Oral.Susp) 30 ml PO DAILY PRN PRN Reason: Constipation Magnesium Oxide (Magnesium Oxide 400 Mg Tablet) 400 mg PO BEDTIME [facility] Last Admin: 07/10/23 21:17 Dose: 400 mg Melatonin (Melatonin 3 Mg Tablet) 9 mg PO BEDTIME [facility] Last Admin: 07/10/23 21:16 Dose: 9 mg Metoprolol Tartrate (Metoprolol Tartrate 25 Mg Tablet) 25 mg PO BID [facility]; Protocol Last Admin: 07/11/23 09:14 Dose: 25 mg Mirtazapine (Mirtazapine 30 Mg Tablet) 30 mg PO BEDTIME [facility] Last Admin: 07/10/23 21:16 Dose: 30 mg Olanzapine (Olanzapine 2.5 Mg Tablet) 2.5 mg PO BEDTIME [facility] Last Admin: 07/10/23 21:16 Dose: 2.5 mg Ondansetron HCl (Ondansetron Odt 4 Mg Tab.Rapdis) 4 mg TRANSLINGU Q6H PRN PRN Reason: Nausea And Vomiting Paroxetine HCl (Paroxetine Hcl 40 Mg Tablet) 40 mg PO DAILY [facility] Last Admin: 07/11/23 09:13 Dose: 40 mg Pravastatin Sodium (Pravastatin Sodium 10 Mg Tablet) 10 mg PO BEDTIME [facility] Last Admin: 07/10/23 21:16 Dose: 10 mg Pravastatin Sodium (Pravastatin Sodium 20 Mg Tablet) 20 mg PO BEDTIME [facility] Last Admin: 07/10/23 21:16 Dose: 20 mg Rivaroxaban (Rivaroxaban 20 Mg Tablet) 20 mg PO DAILY@1630 [facility] Last Admin: 07/10/23 17:06 Dose: 20 mg Senna (Sennosides 8.6 Mg Tablet) 8.6 mg PO DAILY [facility] Last Admin: 07/11/23 09:15 Dose: 8.6 mg Trazodone HCl (Trazodone Hcl 25 Mg Halftab) 25 mg PO BEDTIME [facility] Last Admin: 07/10/23 21:15 Dose: 25 mg Trazodone HCl (Trazodone Hcl 50 Mg Tablet) 50 mg PO BEDTIME MRX1 PRN PRN Reason: Insomnia Allergies Allergies Allergy/AdvReac Type Severity Reaction Status Date / Time alprazolam [Xanax] Allergy Unknown Unknown Verified 07/01/23 13:31 penicillin V Allergy Unknown Unknown Verified 07/01/23 13:31 Penicillins [PENICILLINS] Allergy Unknown HIVES AND Verified 07/01/23 13:31 SOB aspirin AdvReac Unknown N/V, Verified 07/01/23 13:31 BURNING diflunisal [DIFLUNISAL] AdvReac Unknown WEAKNESS Verified 07/01/23 13:31 erythromycin base AdvReac Unknown RAPID Verified 07/01/23 13:31 [ERYTHROMYCIN BASE] HEART RATE iodine [IODINE] AdvReac Unknown VOMITING Verified 07/01/23 13:31 Sulfa (Sulfonamide AdvReac Unknown NAUSEA & Verified 07/01/23 13:31 Antibiotics) VOMITING [SULFA (SULFONAMIDE ANTIBIOTICS)] Contrast Allergy PreMed Pack Allergy Unknown Unknown Uncoded 07/01/23 13:31 Darvocet A500 Allergy Unknown Unknown Uncoded 07/01/23 13:31 Seafood Allergy Unknown Unknown Uncoded 07/01/23 13:31 Sulfa Allergy Unknown Unknown Uncoded 07/01/23 13:31 From DARVON AdvReac Unknown HALLUCINATI Uncoded 07/01/23 13:31 ONS SEAFOOD AdvReac Unknown N/V Uncoded 07/01/23 13:31 Assessment & Plan Assessment & Plan (1) Depressive disorder: Status: Acute Code(s): F32.A - Depression, unspecified (2) Dementia: Status: Acute Code(s): F03.90 - Unspecified dementia, unspecified severity, without behavioral disturbance, psychotic disturbance, mood disturbance, and anxiety Plan The patient is an elderly female with a past history of CVA with right hemiparesis, resident of a [facility] facility referred to the emergency room for suicidal ideation in the context of worsening depressive symptoms such as poor sleep and lack of energy. On the intake interview the patient was irritable and paranoid. Plan 1. Gather more collateral information. The patient is a very poor historian unable to provide more details. 2. Increase Remeron up to 30 mg p.o. q.h.s. since the patient is complaining of insomnia. 3. Continue with Paxil 30 mg p.o. at 12:00 o'clock. 4. Continue with medical treatment. 5. Lab work for tomorrow morning reassessment with results. 6. 5 minutes check since the patient is unable to contract for safety at this moment. 7. Start a very low dose of Zyprexa as a mood stabilizer. 8. Increased melatonin up to 9 mg p.o. q.h.s. to target insomnia. 9. Increase Paxil up to 40 mg on July 08. Reason for continued inpatient stay Substantial Risk for: inability to function, rapid decompensation and med/psych decompensation Time Spent With Patient Time: Total time managing care of this patient today _20___ minutes.
[2023-07-11] MEDS: Rivaroxaban 20 MG TABLET PO (16:03)
[2023-07-11 20:00] VITALS: BP 119/62; PULSE 60; RESP 18; TEMP 36.1; O2SAT 96
[2023-07-11] MEDS: Acetaminophen 325 MG TABLET 650 MG PO (20:23)
[2023-07-11] MEDS: Melatonin 3 MG TABLET 9 MG PO (20:23)
[2023-07-11] MEDS: Gabapentin 300 MG CAPSULE 900 MG PO (20:23)
[2023-07-11] MEDS: OLANZapine 2.5 MG TABLET PO (20:24)
[2023-07-11] MEDS: Mirtazapine 30 MG TABLET PO (20:24)
[2023-07-11] MEDS: Magnesium Oxide 400 MG TABLET PO (20:24)
[2023-07-11] MEDS: traZODone HCL 25 MG HALFTAB PO (20:24)
[2023-07-11] MEDS: Pravastatin Sodium 10 MG TABLET PO (20:24)
[2023-07-11] MEDS: Pravastatin Sodium 20 MG TABLET PO (20:24)
[2023-07-11 20:25] VITALS: BP 119/62; PULSE 60
[2023-07-12] MEDS: Gabapentin 400 MG CAPSULE PO (05:35)
[2023-07-12 08:00] VITALS: BP 150/66; PULSE 55; RESP 18; TEMP 36.2; O2SAT 98
--- NOTE | 2023-07-12 08:11 | PM.PSYDC ---
DS: Providers Provider Date of Service: 07/12/23 Date of admission: 07/02/23 13:22 Date of discharge: 07/12/23 Primary care physician: Unknown Physician DS: Diagnosis Discharge Diagnosis (1) Depressive disorder: Status: Acute (2) Dementia: Status: Acute DS: Medications Discharge Medications Home Medications: Home Medications ?Medication ?Instructions ?Recorded ?Confirmed acetaminophen 650 mg 650 mg PO TID PRN Pain 10/19/21 07/01/23 tablet,extended release baclofen 10 mg tablet 1 tab PO TID 10/19/21 07/01/23 buspirone 10 mg tablet 1 tab PO TID 10/19/21 07/01/23 gabapentin 300 mg capsule 900 mg PO BEDTIME 10/19/21 07/01/23 gabapentin 400 mg capsule 400 mg PO BID@0500,1300 10/19/21 07/01/23 loratadine 10 mg tablet 10 mg PO DAILY PRN Allergy Symptoms 10/19/21 07/01/23 magnesium oxide 400 mg PO BEDTIME 10/19/21 07/01/23 melatonin 5 mg tablet 5 mg PO BEDTIME Insomnia 10/19/21 07/01/23 metoprolol tartrate 25 mg tablet 1 tab PO BID@1200,2100 10/19/21 07/01/23 pravastatin 10 mg tablet 1 tab PO BEDTIME 10/19/21 07/01/23 pravastatin 20 mg tablet 1 tab PO BEDTIME 10/19/21 07/01/23 rivaroxaban 20 mg tablet (Xarelto) 1 tab PO BEDTIME 10/19/21 07/01/23 acetaminophen 325 mg tablet 650 mg PO BEDTIME 07/01/23 07/01/23 aspirin 81 mg chewable tablet 81 mg PO DAILY@119907/01/23 07/01/23 gabapentin 300 mg capsule 300 mg PO Q12H PRN Pain 07/01/23 07/01/23 mirtazapine 15 mg tablet 15 mg PO BEDTIME 07/01/23 07/01/23 ondansetron 4 mg disintegrating 4 mg PO Q6H PRN Nausea And Vomiting 07/01/23 07/01/23 tablet paroxetine HCl 30 mg tablet 30 mg PO DAILY@1200 07/01/23 07/01/23 sennosides 8.6 mg tablet (senna) 8.6 mg PO DAILY 07/01/23 07/01/23 trazodone 50 mg tablet 25 mg PO BEDTIME 07/01/23 07/01/23 Mental Status Exam Mental Status Exam Patient Appearance: Appropriate Patient Orientation: Person and Situation Level of Consciousness: Awake and Appropriate Patient Behavior: Guarded and Passive Mood Description: Withdrawn Affect Description: Constricted Patient Cognition Impaired: Yes Ability to Follow Directions: Good Speech Pattern: Aphasic (Expressive aphasia) Hallucinations: None Delusions: Not Present Thought Process: Distracted and Slowed Thinking Thought Content: positive for [place] and positive for Poverty of Content Judgement: Fair DS: Summary Hospital Course Hospital Course: The patient is a 77-year-old female, with a past history of post stroke right hemiparesis, past history of depression, borderline personality disorder and other medical ailments who was referred to the emergency room of another hospital out of our catchment area from her [facility] facility (resident of that facility for more than 10 years) for exacerbation of depression with suicidal ideation. The patient was assessed by crisis and transferring to this facility for psychiatric stabilization. Please see the HPI of the admission note for further details. On admission, the patient showed evident expressive aphasia, but she was able to verbalize that she was feeling more depressed with neurovegetative symptoms elicited by poor sleep, lack of energy and suicidal thoughts. Also she was very labile with episodes of anger most likely due to the frustration of not been able to verbalized very clear her thoughts due to the expressive aphasia. We discussed at length risks, benefits, side-effects and alternatives and she agreed to do medication changes. On admission we increase her Remeron up to 30 mg p.o. q.h.s. to target insomnia and depression and we added a low dose of Zyprexa 2.5 p.o. q.h.s. to target mood lability. Her sleep did not improve so we increased her melatonin 2. While she was admitted, the patient spent most of the time in the common areas and she was encouraged to participate in groups but her functionality was minimal. Since her depression did not improved with increase of mirtazapine, we increased Paxil up to 40 mg p.o. q.a.m. with no evidence of side effects. The patient reported resolution of suicidal ideation and since there were no safety concerns discharge planning was discussed. Time spent discussing smoking cessation with patient: 3 to 10 minutes Status at Discharge Cognitive/behavioral status at discharge: Impaired at baseline Functional status at discharge: independent ambulation Overall status at discharge: patient is back to baseline Time Spent with Patient Time attestation: Total time managing care of this patient today __30__ minutes. 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 Dementia Status post stroke with right hemiplegia Referrals: [facility] [Other] - 1 Week Discharge Medications: New olanzapine 2.5 mg Tablet 2.5 mg PO BEDTIME 30 Days Qty: 30 0RF mirtazapine 30 mg Tablet 30 mg PO BEDTIME 30 Days Qty: 30 0RF paroxetine HCl 40 mg Tablet 40 mg PO DAILY 30 Days Qty: 30 0RF melatonin 3 mg Tablet 9 mg PO BEDTIME 30 Days Qty: 90 0RF Continued sennosides [senna] 8.6 mg Tablet 8.6 mg PO DAILY 30 Days Qty: 30 0RF acetaminophen 325 mg Tablet 650 mg PO BEDTIME 30 Days Qty: 60 0RF trazodone 50 mg tablet 25 mg PO BEDTIME 30 Days Qty: 15 0RF gabapentin 400 mg capsule 400 mg PO BID@0500,1300 30 Days Qty: 60 0RF acetaminophen 650 mg Tablet Extended Release 650 mg PO TID PRN (Reason: Pain) 30 Days Qty: 90 0RF pravastatin 10 mg tablet 1 tab PO BEDTIME 30 Days Qty: 30 0RF baclofen 10 mg tablet 1 tab PO TID 30 Days Qty: 90 0RF buspirone 10 mg tablet 1 tab PO TID 30 Days Qty: 90 0RF gabapentin 300 mg capsule 900 mg PO BEDTIME 30 Days Qty: 90 0RF aspirin 81 mg Tablet,Chewable 81 mg PO DAILY@1200 30 Days Qty: 30 0RF pravastatin 20 mg tablet 1 tab PO BEDTIME 30 Days Qty: 30 0RF ondansetron 4 mg Tablet,Disintegrating 4 mg PO Q6H PRN (Reason: Nausea And Vomiting) 30 Days Qty: 60 0RF loratadine 10 mg Tablet 10 mg PO DAILY PRN (Reason: Allergy Symptoms) 30 Days Qty: 30 0RF metoprolol tartrate 25 mg tablet 1 tab PO BID@1200,2100 30 Days Qty: 60 0RF magnesium oxide 400 mg magnesium Tablet 400 mg PO BEDTIME 30 Days Qty: 30 0RF Changed Xarelto 20 mg tablet 20 mg PO BEDTIME Qty: 30 0RF Discontinued melatonin 5 mg Tablet 5 mg PO BEDTIME paroxetine HCl 30 mg tablet 30 mg PO DAILY@1200 mirtazapine 15 mg tablet 15 mg PO BEDTIME gabapentin 300 mg Capsule 300 mg PO Q12H PRN (Reason: Pain) Discharge Orders: Discharge Order (Routine); Ordered 07/12/23 Ordered By: Fazal Way Diet: Advance to usual diet Activity on Discharge: As tolerated Stand Alone Forms: Patient Portal Discharge page Print Language: Mexican Care Plan Goals: Care plan goals achieved in this admission Health Concerns: Continue treatment with outpatient primary care physician. Plan of Treatment: Continue with medication management as an outpatient. Assessment: Elderly female with a past history of depression, borderline personality disorder and status post stroke with right hemiparesis admitted for exacerbation of depression with suicidal ideation. The patient medications were adjusted we increase her antidepressants and add a low dose of olanzapine to target mood lability. The patient improved, no evidence of suicidality ready to be discharged to the community. Case managing ancillary services at her [facility] facility were already arranged.
[2023-07-12 08:28] VITALS: BP 150/66; PULSE 60
[2023-07-12] MEDS: busPIRone HCl 10 MG TABLET PO (08:28)
[2023-07-12] MEDS: Baclofen 10 MG TABLET PO (08:28)
[2023-07-12] MEDS: Sennosides 8.6 MG TABLET PO (08:28)
[2023-07-12] MEDS: Aspirin 81 MG TAB.CHEW PO (08:28)
[2023-07-12] MEDS: Metoprolol Tartrate 25 MG TABLET PO (08:28)
[2023-07-12] MEDS: PARoxetine HCL 40 MG TABLET PO (08:28)
== END 2023-07-12 11:26 | disposition skilled nursing facility (03) | DRG 885 ==
LOC: HO.ED 20:13 → HO.PGERI 07-02 13:46
PROVIDERS: Student in an Organized Health Care Education/Training Program; Admitting Provider Psychiatry & Neurology Psychiatry; Emergency Provider Emergency Medicine; Visit Provider Psychiatry & Neurology Psychiatry
DX: F33.2 Major depressive disorder, recurrent severe without psychotic features (principal); R45.851 Suicidal ideations; I69.351 Hemiplegia and hemiparesis following cerebral infarction affecting right dominant side; F03.90 Unspecified dementia, unspecified severity, without behavioral disturbance, psychotic disturbance, mood disturbance, and anxiety; Z79.01 Long term (current) use of anticoagulants; Z79.82 Long term (current) use of aspirin; Z79.899 Other long term (current) drug therapy
CPT/HCPCS: 36415; 80053; 80061; 80143; 80179; 80307; 81001; 82947; 85025; 93005; 99285

== ENCOUNTER → 2023-07-01 13:35 | Outpatient (BNV) | payer MEDICARE, MEDICAID, SELFPAY | PROVIDERS: Admitting Provider Psychiatry & Neurology Psychiatry; Emergency Provider Emergency Medicine; Visit Provider Internal Medicine Cardiovascular Disease | DX: I45.9 Conduction disorder, unspecified (principal); R94.31 Abnormal electrocardiogram [ECG] [EKG]; R41.82 Altered mental status, unspecified | CPT/HCPCS: 93010 ==

== ENCOUNTER → 2023-07-02 13:22 | Outpatient (BNV) | payer MEDICARE, MEDICAID, SELFPAY | PROVIDERS: Admitting Provider Psychiatry & Neurology Psychiatry; Emergency Provider Emergency Medicine; Visit Provider Psychiatry & Neurology Psychiatry | DX: F33.2 Major depressive disorder, recurrent severe without psychotic features (principal); F03.90 Unspecified dementia, unspecified severity, without behavioral disturbance, psychotic disturbance, mood disturbance, and anxiety | CPT/HCPCS: 90792; 99231; 99232; 99238 ==

== ENCOUNTER → 2023-07-02 13:22 | Outpatient (BNV) | payer MEDICARE, MEDICAID, SELFPAY | PROVIDERS: Admitting Provider Psychiatry & Neurology Psychiatry; Emergency Provider Emergency Medicine; Visit Provider Psychiatry & Neurology Psychiatry | DX: F33.2 Major depressive disorder, recurrent severe without psychotic features (principal); F03.90 Unspecified dementia, unspecified severity, without behavioral disturbance, psychotic disturbance, mood disturbance, and anxiety | CPT/HCPCS: 99231 ==

== ENCOUNTER 2023-09-06 13:37 | Emergency (ER) | payer MEDICARE, MEDICAID, SELFPAY ==
[2023-09-06] VITALS (7 sets, daily range): BP systolic 142–161; BP diastolic 41–84; PULSE 58–63; RESP 14–20; TEMP 36.4–36.9; O2SAT 95–100; BMI 22.4
--- NOTE | ~2023-09-06 | CT_ITS ---
EXAMINATION: CT HEAD WITHOUT CONTRAST CLINICAL INFORMATION: Altered mental status. COMPARISON: CT head dated 01/03/2023. TECHNIQUE: Contiguous axial imaging was performed from the skull base to vertex without intravenous administration of contrast. This CT examination was performed using dose optimization techniques as appropriate, variously including the following: *Automated exposure control *Adjustment of mA and/or kV according to patient size (this includes techniques or standardized protocols for targeted exams where dose is matched to indication/reason for exam; i.e. extremities or head) *Use of iterative reconstruction technique DLP: 636 mGy-cm FINDINGS: There is no acute intracranial hemorrhage. There is no evidence of acute/subacute cerebral or cerebellar infarction. 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 There is wallerian degeneration of the left cerebral peduncle and left chu beckie. No midline shift or mass effect. No extra-axial fluid collection. No hydrocephalus. The orbits are symmetric and within normal limits. The calvarium is intact. The visualized paranasal sinuses and mastoid air cells are clear. CT/CT head/brain wo IV con IMPRESSION: No acute intracranial abnormality. Chronic left MCA territory infarction.
--- NOTE | 2023-09-06 14:14 | ED_ITS ---
HPI - Psych General Chief Complaint: Psychiatric Symptoms Stated Complaint: SECTION SI History of Present Illness HPI Narrative: 78 years old with a history of depression history of dementia presented today with having thoughts of wanting to jump off the window. Wants to kill herself. There has been no change in her environment she lives in the residential. No gross changes in medication. Patient is on olanzapine Paxil and is on Xarelto. Related Data Previous Rx's ?Medication ?Instructions ?Recorded acetaminophen 325 mg tablet 650 mg (2 x 325 mg) PO BEDTIME 30 07/12/23 days #60 tabs acetaminophen 650 mg 650 mg PO TID PRN Pain 30 days #90 07/12/23 tablet,extended release tabs aspirin 81 mg chewable tablet 81 mg PO DAILY@1200 30 days #30 07/12/23 tabs baclofen 10 mg tablet 1 tab PO TID 30 days #90 tabs 07/12/23 buspirone 10 mg tablet 1 tab PO TID 30 days #90 tabs 07/12/23 gabapentin 300 mg capsule 900 mg (3 x 300 mg) PO BEDTIME 30 07/12/23 days #90 caps gabapentin 400 mg capsule 400 mg PO BID@0500,1300 30 days 07/12/23 #60 caps loratadine 10 mg tablet 10 mg PO DAILY PRN Allergy 07/12/23 Symptoms 30 days #30 tabs magnesium oxide 400 mg PO BEDTIME 30 days #30 tabs 07/12/23 melatonin 3 mg tablet 9 mg (3 x 3 mg) PO BEDTIME 30 days 07/12/23 #90 tabs metoprolol tartrate 25 mg tablet 1 tab PO BID@1200,2100 30 days #60 07/12/23 tabs mirtazapine 30 mg tablet 30 mg PO BEDTIME 30 days #30 tabs 07/12/23 olanzapine 2.5 mg tablet 2.5 mg PO BEDTIME 30 days #30 tabs 07/12/23 ondansetron 4 mg disintegrating 4 mg PO Q6H PRN Nausea And 07/12/23 tablet Vomiting 30 days #60 tabs paroxetine HCl 40 mg tablet 40 mg PO DAILY 30 days #30 tabs 07/12/23 pravastatin 10 mg tablet 1 tab PO BEDTIME 30 days #30 tabs 07/12/23 pravastatin 20 mg tablet 1 tab PO BEDTIME 30 days #30 tabs 07/12/23 rivaroxaban 20 mg tablet (Xarelto) 20 mg PO BEDTIME #30 tabs 07/12/23 sennosides 8.6 mg tablet (senna) 8.6 mg PO DAILY 30 days #30 tabs 07/12/23 trazodone 50 mg tablet 25 mg (1/2 x 50 mg) PO BEDTIME 30 07/12/23 days #15 tabs Allergies Allergy/AdvReac Type Severity Reaction Status Date / Time alprazolam [Xanax] Allergy Unknown Unknown Verified 09/06/23 13:55 penicillin V Allergy Unknown Unknown Verified 09/06/23 13:55 Penicillins [PENICILLINS] Allergy Unknown HIVES AND Verified 09/06/23 13:55 SOB indomethacin [From Indocin] Allergy Unknown Verified 09/06/23 13:55 aspirin AdvReac Unknown N/V, Verified 09/06/23 13:55 BURNING diflunisal [DIFLUNISAL] AdvReac Unknown WEAKNESS Verified 09/06/23 13:55 erythromycin base AdvReac Unknown RAPID Verified 09/06/23 13:55 [ERYTHROMYCIN BASE] HEART RATE iodine [IODINE] AdvReac Unknown VOMITING Verified 09/06/23 13:55 Sulfa (Sulfonamide AdvReac Unknown NAUSEA & Verified 09/06/23 13:55 Antibiotics) VOMITING [SULFA (SULFONAMIDE ANTIBIOTICS)] Contrast Allergy PreMed Pack Allergy Unknown Unknown Uncoded 09/06/23 13:55 Darvocet A500 Allergy Unknown Unknown Uncoded 09/06/23 13:55 Seafood Allergy Unknown Unknown Uncoded 09/06/23 13:55 Sulfa Allergy Unknown Unknown Uncoded 09/06/23 13:55 From DARVON AdvReac Unknown HALLUCINATI Uncoded 09/06/23 13:55 ONS SEAFOOD AdvReac Unknown N/V Uncoded 09/06/23 13:55 Review of Systems 2 Review of Systems: No fever no chills no chest pain or shortness breath no systemic complaints Yes all other systems are reviewed and are negative PMFSH Social History Social History Household Members: None Housing: [facility] Do you presently have visiting nurse or other home services: No Alcohol intake: former Patient Tobacco Use Status: Never used Tobacco Smoked in Last 30 Days: No e-Cigarette/Vaping Use: Never Used Second Hand Smoke Exposure: No Use of substances other than those prescribed or required for medical reasons: No Advance Directives: No Advance Directives Information Provided: No Do you have a plan to hurt others: No Plan service: No Sexual orientation: Straight/Heterosexual Physical Exam 2 Vital Signs: Vital Signs: Last Vital Signs Temp 97.8 F 09/06/23 16:07 Pulse 60 09/06/23 16:07 Resp 14 09/06/23 16:07 BP 154/58 H 09/06/23 16:07 Pulse Ox 99 09/06/23 16:07 O2 Del Method Room Air 09/06/23 16:07 BMI result Body Mass Index 22.4 Appearance: Alert. Oriented X3. No acute distress. Eyes: Pupils equal, round and reactive to light. ENT: Pharynx normal. Neck: Normal inspection. Neck supple. No lymph nodes noted. No crepitus CVS: Normal heart rate and rhythm. Pulses normal. Normal S1 and S2 Respiratory: No respiratory distress. Breath sounds normal. No Wheezing. No rales Abdomen: Soft and nontender. No rigidity. No distention. good BS x4 Skin: Skin warm and dry. Normal skin color. Normal skin turgor. Extremities: No lower extremity edema. Neurovascular intact to all extremities. No Lacerations. No Rash Neuro: Oriented X 3. No motor deficit. No sensory deficit. Moving all extermities. No slurred speech Medical Decision Making Medical Decision Making MDM Narrative: Patient complaining of feeling very depressed possible suicidal ideation was evaluated by the crisis team. Grossly feels comfortable with patient going back to the residential facility after talking to family talking to staff talked patient. In no distress. Patient wants to go back. Her CT scan of the head was grossly negative for any acute evidence of bleeding. Labs are normal TSH is normal no evidence for hypo or hyperthyroid blood count is normal. Patient's electrolytes are unremarkable. Her urine showed no gross signs of infection. In stable condition been some back Differential Diagnosis Differential Diagnoses: The differential diagnosis associated with the presentation includes Depression Admission/Observation Consideration of admission/observation: Escalation of care including admission/observation considered Consult Healthcare Provider Management of the patient was discussed with: Raking Machine Operator (Crisis intervention) Lab Data [facility] Lab Attestation statement: I reviewed the patient's lab results. 09/06/23 14:24 09/06/23 14:24 Labs: Lab Results 09/06/23 09/06/23 Range/Units 14:24 14:38 WBC 6.5 (4.8-10.8) X10*3/uL RBC 4.29 (4.20-5.50) X10*6/uL Hgb 12.7 (12.0-16.0) g/dl Hct 40.6 (37.0-47.0) % MCV 94.6 (80.0-98.0) fL MCH 29.6 (27.0-33.0) pg MCHC 31.3 (31.0-35.0) g/dl RDW 14.4 (11.0-16.0) % Plt Count 264 (160-400) X10*3/uL MPV 9.0 L (9.4-12.3) fL Immature Gran % (Auto) 0.5 H (0.0-0.4) % Neut % (Auto) 66.1 (45-73) % Lymph % (Auto) 20.6 (20-40) % [place] % (Auto) 10.2 (2-11) % Eos % (Auto) 1.5 (0-4) % Baso % (Auto) 1.1 (0-2) % Lymph # (Auto) 1.3 (1.2-4.9) X10*3/uL [place] # (Auto) 0.7 (0.1-1.2) X10*3/uL Eos # (Auto) 0.1 (0.0-0.4) X10*3/uL Baso # (Auto) 0.1 (0.0-0.2) X10*3/uL Abs Immat Gran (auto) 0.03 (0.00-0.03) X10*3/uL Absolute Neuts (auto) 4.3 (2.0-8.3) x10*3/uL Absolute Nucleated RBC 0.000 (0.0-0.012) X10*3/uL Nucleated RBC % (auto) 0.0 (0.0-0.2) /100WBC Sodium 144 (135-145) mmol/L Potassium 4.5 D (3.3-5.1) mmol/L Chloride 106 (96-108) mmol/L Carbon Dioxide 31 H (22-29) mmol/L Anion Gap 12 (12-20) BUN 11 (9-16) mg/dL Creatinine 0.85 (0.5-1.4) mg/dL Estim Creat Clear Calc 39.8 Estimated GFR > 60 Random Glucose 72 (60-115) mg/dL Calcium 8.6 D (8.4-10.2) mg/dL Total Bilirubin 0.2 (0.0-1.0) mg/dL AST 21 (5-31) U/L ALT 13 (0-31) U/L Alkaline Phosphatase 95 (39-117) U/L Total Protein 6.9 (6.5-8.0) g/dL Albumin 3.6 (3.5-5.0) g/dL TSH 3.59 (0.32-4.0) uIU/mL Urine Color Yellow Urine Appearance Clear Urine pH 5.5 (5.0-9.0) Ur Specific [place] 1.015 (1.005-1.025) Urine Protein Negative (Neg-Trace) mg/dL Urine Glucose (UA) Negative (Negative) mg/dL Urine Ketones Negative (Negative) mg/dL Urine Blood Negative (Negative) Urine Nitrite Negative (Negative) Ur Leukocyte Esterase Negative (Negative) Salicylates < 5.0 L (15-30) mg/dL Urine Opiates Screen Not Detected (Not Detect) Ur Buprenorphine Scrn Not Detected (Not Detect) ng/mL Ur Oxycodone Screen Not Detected (Not Detect) ng/mL Urine Methadone Screen Not Detected (Not Detect) ng/mL Urine Fentanyl Screen Not Detected (Not Detect) Acetaminophen < 3 (<30) mcg/mL Ur Barbiturates Screen Not Detected (Not Detect) Ur Phencyclidine Scrn Not Detected (Not Detect) Ur Amphetamines Screen Not Detected (Not Detect) U Benzodiazepines Scrn Not Detected (Not Detect) Urine Cocaine Screen Not Detected (Not Detect) U Marijuana (THC) Screen Not Detected (Not Detect) Ethyl Alcohol < 10 mg/dL COVID-19 (MARY) Negative (Negative) COVID-19 Clin Com See Note Independent Interpretation I performed an independent interpretation of an: CT Scan (CT scan of the head was grossly negative) Radiology Impression Discussion of test interpretation with radiology: I have reviewed the radiologist's reading. Independent Historian Clinical information obtained from an independent historian. History obtained from or confirmed by: EMS External Record Review EMS record reviewed Discharge Plan Discharge Clinical Impression: Dementia, Depressive disorder Patient Disposition: Home, Self-Care Instructions: Dementia (ED) Prescriptions: No Action olanzapine 2.5 mg Tablet 2.5 mg PO BEDTIME 30 Days Qty: 30 0RF mirtazapine 30 mg Tablet 30 mg PO BEDTIME 30 Days Qty: 30 0RF paroxetine HCl 40 mg Tablet 40 mg PO DAILY 30 Days Qty: 30 0RF melatonin 3 mg Tablet 9 mg PO BEDTIME 30 Days Qty: 90 0RF sennosides [senna] 8.6 mg Tablet 8.6 mg PO DAILY 30 Days Qty: 30 0RF acetaminophen 325 mg Tablet 650 mg PO BEDTIME 30 Days Qty: 60 0RF trazodone 50 mg tablet 25 mg PO BEDTIME 30 Days Qty: 15 0RF gabapentin 400 mg capsule 400 mg PO BID@0500,1300 30 Days Qty: 60 0RF acetaminophen 650 mg Tablet Extended Release 650 mg PO TID PRN (Reason: Pain) 30 Days Qty: 90 0RF pravastatin 10 mg tablet 1 tab PO BEDTIME 30 Days Qty: 30 0RF baclofen 10 mg tablet 1 tab PO TID 30 Days Qty: 90 0RF buspirone 10 mg tablet 1 tab PO TID 30 Days Qty: 90 0RF gabapentin 300 mg capsule 900 mg PO BEDTIME 30 Days Qty: 90 0RF aspirin 81 mg Tablet,Chewable 81 mg PO DAILY@1200 30 Days Qty: 30 0RF pravastatin 20 mg tablet 1 tab PO BEDTIME 30 Days Qty: 30 0RF ondansetron 4 mg Tablet,Disintegrating 4 mg PO Q6H PRN (Reason: Nausea And Vomiting) 30 Days Qty: 60 0RF loratadine 10 mg Tablet 10 mg PO DAILY PRN (Reason: Allergy Symptoms) 30 Days Qty: 30 0RF metoprolol tartrate 25 mg tablet 1 tab PO BID@1200,2100 30 Days Qty: 60 0RF Xarelto 20 mg tablet 20 mg PO BEDTIME Qty: 30 0RF magnesium oxide 400 mg magnesium Tablet 400 mg PO BEDTIME 30 Days Qty: 30 0RF Referrals: Jan Hoover MD [Primary Care Provider] - (Please follow-up as per crisis) Interventions: [place]-Suicide Risk Severity Scale Last Done: 09/06/23 14:52 Print Language: Cambodian
[2023-09-06 14:29] LABS: MANUAL DIFF FLAG NO
[2023-09-06 14:33] LABS: Basophils Absolute Auto 0.1 X10*3/uL (0.0-0.2); Basophils Percent Auto 1.1 % (0-2); Eosinophils Absolute Auto 0.1 X10*3/uL (0.0-0.4); Eosinophils Percent Auto 1.5 % (0-4); Hematocrit 40.6 % (37.0-47.0); Hemoglobin 12.7 g/dl (12.0-16.0); Imm Gran Abs Auto 0.03 X10*3/uL (0.00-0.03); Imm Gran Pct Auto 0.5 % (0.0-0.4); Lymphocytes Absolute Auto 1.3 X10*3/uL (1.2-4.9); Lymphocytes Percent Auto 20.6 % (20-40); Mean Corpuscular HGB Conc 31.3 g/dl (31.0-35.0); Mean Corpuscular Hemoglobin 29.6 pg (27.0-33.0); Mean Corpuscular Volume 94.6 fL (80.0-98.0); Monocytes Absolute Auto 0.7 X10*3/uL (0.1-1.2); Monocytes Percent Auto 10.2 % (2-11); Neutrophils Absolute Auto 4.3 x10*3/uL (2.0-8.3); Neutrophils Percent Auto 66.1 % (45-73); Platelet Count 264 X10*3/uL (160-400); Red Blood Count 4.29 X10*6/uL (4.20-5.50); Red Cell Distribution Width 14.4 % (11.0-16.0); White Blood Count 6.5 X10*3/uL (4.8-10.8)
[2023-09-06 14:42] LABS: COVID-19 Test Negative (Negative); IDNOW Serial# 58CA691E
[2023-09-06 14:44] LABS: Acetaminophen LAB < 3 mcg/mL (<30); Salicylate < 5.0 mg/dL (15-30)
[2023-09-06 14:52] LABS: Alanine Aminotransferase 13 U/L (0-31); Albumin Level 3.6 g/dL (3.5-5.0); Alkaline Phosphatase 95 U/L (39-117); Anion Gap 12 (12-20); Aspartate Amino Transferase 21 U/L (5-31); Bilirubin Total 0.2 mg/dL (0.0-1.0); Blood Urea Nitrogen 11 mg/dL (9-16); Calcium 8.6 mg/dL (8.4-10.2); Carbon Dioxide 31 mmol/L (22-29); Chloride 106 mmol/L (96-108); Creatinine Clr Calc Pharmacy 39.8; Estimated Glomerular Filt Rate > 60; Ethanol < 10 mg/dL; Glucose Random 72 mg/dL (60-115); Potassium 4.5 mmol/L (3.3-5.1); Sodium 144 mmol/L (135-145); Total Protein 6.9 g/dL (6.5-8.0)
[2023-09-06 14:56] LABS: Appearance Urine Clear; Color Urine Yellow; Glucose Urine UA Negative (Negative); Leukocyte Esterase Urine Negative (Negative); Nitrite Urine Negative (Negative); PH 5.5 (5.0-9.0); Specific Gravity - Urine 1.015 (1.005-1.025); Urine Blood Negative (Negative); Urine Ketones Negative (Negative); Urine Protein Negative (Neg-Trace)
[2023-09-06 14:57] LABS: Amphetamine Screen Urine Not Detected (Not Detect); Barbiturates, Urine Not Detected (Not Detect); Benzodiazepines Screen Urine Not Detected (Not Detect); Buprenorphine Scr Not Detected (Not Detect); Cannabinoid Screen Urine Not Detected (Not Detect); Cocaine Screen Urine Not Detected (Not Detect); Fentanyl, urine Not Detected (Not Detect); Methadone Screen, Urine Not Detected (Not Detect); Opiate Screen Urine Not Detected (Not Detect); Oxycodone Screen Urine Not Detected (Not Detect); Phencyclidine Screen Urine Not Detected (Not Detect)
--- NOTE | 2023-09-06 15:01 | MHC.EDTECH ---
this tech took over care at this time, when checking on pt she appeared to be in no apparent distress, and no request at this time
[2023-09-06 15:07] LABS: TSH reflex Free T4 3.59 uIU/mL (0.32-4.0)
--- NOTE | 2023-09-06 17:22 | PC.NURSE ---
report called to snf, gave ETA of about 1.5 hrs from now which ems gave us
== END 2023-09-06 20:10 | disposition home or self-care (01) ==
PROVIDERS: Emergency Provider Emergency Medicine Emergency Medical Services; PCP Family Medicine
DX: F32.A Depression, unspecified (principal); F03.90 Unspecified dementia, unspecified severity, without behavioral disturbance, psychotic disturbance, mood disturbance, and anxiety; R45.851 Suicidal ideations; Z11.52 Encounter for screening for COVID-19; Z79.899 Other long term (current) drug therapy
CPT/HCPCS: 70450; 80053; 80143; 80179; 80307; 81003; 84443; 85025; 87635; 99284; 99285; S9485

== ENCOUNTER 2024-02-10 14:12 | Outpatient (REF) | payer MEDICARE, MEDICAID, SELFPAY ==
--- NOTE | ~2024-02-10 | FL_ITS ---
EXAMINATION: Modified Barium Swallow CLINICAL INFORMATION: Dysphagia. COMPARISON: None. TECHNIQUE: Modified barium swallow was performed under lateral fluoroscopy with patient in standing position. Barium mixed with solids and liquids of different consistencies was administered by the speech pathologist. Examination was recorded in the fluoroscopy suite. FINDINGS: A delayed swallowing mechanism is noted with premature filling of the vallecula and piriform sinuses. Laryngeal penetration and subglottic aspiration was identified with thin consistency barium. No tracheal aspiration was observed. 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 FLUOROSCOPY TIME: 3 minutes 36 seconds Number of Spot Images: DOSE AREA PRODUCT: 1430 uGy-m2 (microgray-meter squared) FL/FL Modified Barium Swallow IMPRESSION: 1. Delayed swallow mechanism with premature filling of the vallecula and piriform sinuses. 2. Laryngeal penetration and subglottic aspiration was seen with thin consistency barium. No tracheal aspiration was observed. 3. Mild cricopharyngeal achalasia. 4. 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 Refer to the speech therapy report for further clarification This procedure was performed by King Vieyra PA-C, and supervised by Dr. Tse Electronically signed by: Nabil Tse MD 02/11/2024 11:06 AM [facility] [place]
--- NOTE | 2024-02-11 17:32 | MHC.SL.IMP ---
Date of Plan of Treatment: 02/10/24 Onset of Symptoms/Illness: 01/17/24 Date Treatment Started: 02/10/24 Admitting Diagnosis: Hx CVA Primary Speech & Language Diagnosis: R13.12 Oropharyngeal Phase Dysphagia Reason for Today's Visit: 25563 Modified Barium Swallow Study Pre-evaluation Dietary Consistencies: Grnd/Mech Altered (NDD2) Pre-evaluation Liquid Consistency: Thin Pre-evaluation Medication Administration: Crushed with Puree Medical History: Modified Barium Swallow Study Fluoroscopic Evaluation of Swallowing Function CPT Code 65819 Evaluation Year: 2023 Reason for Study: Difficulty swallowing Referring Physician: Alice Wesley SOAKERS SUPERVISOR Evaluating Clinician: Joelle Quezada MA, CCC-[facility] Study Number: 1 Patient Name: Landy Cochran Status: Outpatient, Stretcher Age: 78 Gender: Female Medical History Hx CVA with right hemiparesis Depression, unspecified Osteoarthritis Anxiety disorder Stiffness of right hand Essential hypertension Hyperlipidemia GERD without esophagitis Primary optic atrophy, 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 Chronic idiopathic constipation Hypomagnesemia Unspecified dementia Suicidal ideations Borderline personality disorder Mood disorder Current (pre-evaluation) Intake/Diet: Route: PO Diet Grade: Mechanical Soft Liquid Consistencies: Thin Pre-Study Functional Oral Intake Scale (FOIS): 5- Total oral intake of multiple consistencies requiring special preparation Pain: Chronic/Ongoing reported at time of study, Throat, rated 5 on scale 0-10 Subjective: Patient is a 78 year old female with history of CVA with residual right hemiparesis, presenting for modified barium swallow study (MBSS) from [facility]. Patient was brought by EMS and accompanied by a assistant professor of nursing. Documentation from the nursing facility indicates patient is on a mechanically soft diet with extra sauces and gravies, allowing breads, with thin liquids. She is also on dietary supplement, Ensure Clear. She is reportedly seen by the speech therapist 1-3x week for 30 days for dysphagia treatment. Patient endorses having trouble swallowing, reporting ongoing and constant pain in her throat, rated 5/10, and globus sensation with swallowing mainly on the right side of her throat. Oral Motor Exam Oral-Facial Smile (Lips) Description: Reduced ROM Oral-Facial Puff Cheeks Description: Reduced Strength Tongue Size: Normal Tongue Excursion Description: Incomplete Tongue Range of Movement Description: Reduced Tongue Speed of Movement Description: Reduced Tongue Strength of Movement (against opposing pressure): Reduced Tongue Movement Characteristics: Normal/Absent Food and Liquid Trials: Oral Impairment: Lip Closure: Did not test Oral Impairment: Tongue Control During Bolus Hold: 2=Posterior escape of less than half of bolus Oral Impairment: Bolus Preparation/Mastication: 2=Disorganized chewing/mashing with solid pieces of bolus Oral Impairment: Bolus Transport/Lingual Motion: 3=Repetitive/disorganized tongue motion Oral Impairment: Oral Residue: 1=Trace residue lining oral structures Oral Impairment:Initiation of Pharyngeal Swallow: 3=Bolus head in pyriforms Pharyngeal Impairment: Soft Palate Elevation: 0=No bolus between soft palate (SP)/pharyngeal wall (PW) Pharyngeal Impairment: Laryngeal Elevation: 1=Partial thyroid cartilage/arytenoids to epiglottic petiole movement Pharyngeal Impairment: Anterior Hyoid Excursion: 1=Partial anterior movement Pharyngeal Impairment: Epiglottic Movement: 1=Partial inversion Pharyngeal Impairment: Laryngeal Vestibular Closure:: 1=Incomplete: narrow column air/contrast in laryngeal vestibule Pharyngeal Impairment: Pharyngeal Stripping Wave: 1=Present: diminished Pharyngeal Impairment: Pharyngeal Contraction: Did not test Pharyngeal Impairment: Pharyngoesophageal Segment Openin=Complete distension and complete duration: no obstruction of flow Pharyngeal Impairment: Tongue Base (TB) Retraction: 2=Narrow column of contrast/air between TB and posterior PW Pharyngeal Impairment: Pharyngeal Residue: 2=Collection of residue within or on pharyngeal structures Pharyngeal Impairment: Esophageal Clearance Upright Position: Did not test Impressions and Recommendations Clinical Observations: OBJECTIVE: Time-out: performed at 15:00 Evaluation Start: 14:30; Stop: 14:35 Patient Positioning: Seated 70-90 degrees Viewing Planes: LATERAL ONLY Contrast: MBSImP? Standardized Protocol using commercially prepared, standardized Barium viscosities, including: Varibar? THIN LIQUID (40% w/v, <15 cps) , Varibar? NECTAR (40% w/v, <150-450 cps) , Varibar? PUDDING (40% w/v, <2418-5562 cps) , 1/2 Shortbread Cookie (1 x1 x.25 ) MBSImP ID: [id number] MBSImP Results: Lip closure for intraoral bolus containment could not be assessed due to logistical reasons not related to physiologic impairment. Tongue control during bolus hold resulted in posterior escape of less than half of the bolus. Bolus preparation and mastication demonstrated disorganized chewing/mashing with solid pieces of the bolus unchewed. Bolus transport/lingual motion was with repetitive/disorganized motion of the tongue. Oral residue was a trace, lining oral structures. Initiation of the pharyngeal swallow occurred when the bolus head was in the pyriform sinuses. Soft palate elevation resulted in no bolus between the soft palate and the pharyngeal wall. Laryngeal elevation was decreased, with partial superior movement of the thyroid cartilage/partial approximation of the arytenoids to the epiglottic petiole. Anterior hyoid excursion demonstrated partial anterior movement. Epiglottic movement resulted in partial inversion. Laryngeal vestibular closure was incomplete, with a narrow column of air/contrast noted within the laryngeal vestibule at the height of the swallow. Pharyngeal stripping wave was present, but diminished. Pharyngeal contraction could not be determined due to logistical reasons not related to physiologic impairment. Pharyngoesophageal segment opening was completely distended for complete duration with no obstruction of bolus flow. Tongue base retraction allowed a narrow column of contrast or air between the retracted tongue base and the posterior pharyngeal wall. Pharyngeal residue was a collection of residue within or on pharyngeal structures. Esophageal clearance in the upright position could not be assessed due to logistical reasons not related to physiologic impairment. Oral Impairment Score: 10 (absence of score, component 1) Pharyngeal Impairment Score: 9 (absence of score, component 13) Esophageal Impairment Score: --- (absence of score, component 17) Laryngeal Penetration and Aspiration: Neither penetration nor aspiration was observed in today's study with Cookie, Ground Chicken, Puree. Both Penetration and Aspiration were observed in today's study. Olanta-thick Contrast entered the airway, remained above the vocal folds, and was ejected from the airway. Thin Contrast entered the airway, passed below the vocal folds, and was ejected into the larynx or out of the airway. ASSESSMENT: Clinician Assessment: This exam was conducted by the radiologist and the speech pathologist. Patient was seated upright in a stretcher for lateral view only. Patient fed herself and trialed the following consistencies: thin (via individual cup sips), nectar thick (via individual cup sips), puree, ground, and regular solid. There was premature posterior escape, with contrast spilling and pooling in the valleculae and pyriform sinuses prior to initiation of the pharyngeal swallow. Mastication was significantly prolonged with disorganized pattern, visualized solid unchewed pieces, and piece meal deglutition. Slowed and repetitive tongue rocking movements. Pharyngeal swallow trigger was also significantly delayed, initiated as the bolus head reached the pyriform sinuses. There was trace residue lining the floor of mouth and the blade of tongue. No evidence of nasopharyngeal reflux. Partial laryngeal elevation with partial epiglottic inversion and partial laryngeal vestibular closure. There was mild residue collection on the tongue base, in the valleculae and in the pyriform sinuses. No evidence of aspiration or penetration with intake of solid consistencies. On sips of thin liquid, there was trace laryngeal penetration above and to the level of the vocal folds intermittently, with episode of subglottic aspiration, but no tracheal aspiration. On sips of nectar thick liquid, there was trace penetration intermittently above the vocal folds, but no subsequent aspiration. Patient did not elicit spontaneous protective cough or throat clear when material entered the airway. 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 Liquid Intake Recommendation: Olanta Thick Liquid Intake Strategies: Small Sips, No Straws, Double Swallow Dietary Recommendations: Grnd/Mech Altered (NDD2) Medication Administration: Crushed with Puree Please contact the pharmacy regarding appropriate crushable or liquid drug formulations that are available whenever modified delivery is recommended. Compensatory Strategies Recommended: Sitting Upright (90 deg), Double Swallow, No Straw, Small Bites and Sips, Rate of Ingestion Change, Avoid Specific Foods Supervision during eating and or drinking: Total Supervision (1:1) Recommended Treatments: Compens. Strategy Educat. Recommendation for Speech Therapy: Speech Therapy through Rehab Facility Text Comment: Intake Recommendations: Route: PO Diet Grade: Mechanical Soft Liquid Consistencies: [place] Post-Study Functional Oral Intake Scale (FOIS): 5- Total oral intake of multiple consistencies requiring special preparation Patient presented with moderate to severe impairments of the oral and pharyngeal swallow mechanism. Significantly slowed oral phase with premature posterior spilling to the valleculae and pyriforms, disorganized mastication pattern, and repetitive tongue pumping. Noted significantly delayed swallow trigger with partial laryngeal vestibular closure and compromised airway protection. There was penetration intermittently to the vocal folds with trace subglottic aspiration on trials of thin liquid. Penetration seen above the vocal folds with nectar thick liquid. Recommend patient continue on Mechanically Soft Diet and DOWNGRADE to Ol[place] Thick Liquids, with consideration of Rey Free Water Protocol between meals to promote hydration: Per protocol, patient to be permitted thin liquid (water only) between meals with strict aspiration precautions and nursing or [facility] supervision. Oral care to be provided after meals/before presentation of water. Water to be given by teaspoon or individual cup sip, with cues for volitional throat clear/ dry swallow after sip. Additionally, the following strategies are recommended to maximize feeding safety at mealtime: -Liquids via teaspoon or individual cup sips -Avoid the use of straws -Chew food well and moisten with thick sauces and gravies -Avoid sticky or hard foods; mixed consistencies (i.e. thin broth soup with solid ingredients) -Take small bites, one bite at a time -Ensure oral cavity is clear before taking next bite -Follow bite with dry swallow then sip of liquid -Maintain 90 degree position during PO intake and for at least 30-45 minutes afterwards Therapy Recommendations: Recommend continue Speech Therapy at Nursing Facility. Short Term Goals: ? Diet - The patient will tolerate a Mechanical Soft Diet with [place] Thick Liquids without signs or symptoms of penetration/aspiration 100% of the time. - The patient will participate in therapeutic PO trials with the [facility]. ? Guidelines - The patient will comply with/recall the following guidelines/strategies 100% of the time with no cuing: Bolus Volume Change, Rate of Ingestion Change, Additional Swallow(s) per Bolus, No Straws. ? Education - The patient, family, caregiver, nurse will verbalize/demonstrate understanding of the results of this evaluation, the above recommendations, and the swallowing guidelines. Frequency/Duration: Date Range for Service Requested: Timeline to reassess: PRN Clinician - Supplemental, Miscellaneous Communication: It is important to note MBSS objective studies are snapshots in time and Patient function might vary with factors such as time of day or concomitant medical conditions. For this reason, the final treatment plan for this patient should rest with their medical care team. Additional recommendations should be considered with the totality of the Patient in mind. Thank for the opportunity to participate in the care of this patient. If you have any questions about the content of this report, please contact the [facility] at [facility]. Education: Education regarding findings from today's study and plans for therapy were provided to Family/caregiver only through Verbal Instruction, Written Instruction. Understanding was expressed by the Family/caregiver only. [employer] Officer Clinician/Clinical Fellow: No Supervisory Statement: N/A Speech Language Pathologist: Joelle Quezada M.A., [facility]
== END 2024-02-10 14:13 | disposition home or self-care (01) ==
LOC: HO.XRAY 14:12
PROVIDERS: PCP Physician Assistant Medical; Visit Provider Nurse Practitioner
DX: R13.10 Dysphagia, unspecified (principal)
CPT/HCPCS: 74230; 92611

== ENCOUNTER → 2024-02-10 14:56 | Outpatient (BNV) | payer MEDICARE, MEDICAID, SELFPAY | PROVIDERS: PCP Physician Assistant Medical; Visit Provider Physician Assistant Surgical | DX: R13.10 Dysphagia, unspecified (principal) | CPT/HCPCS: 74230 ==